=== PATIENT | female | born 1990 | race Caucasian/White ===

== ENCOUNTER 2020-05-07 17:23 | Emergency (ER) | payer OTHER, SELFPAY ==
[2020-05-07 18:20] VITALS: BP 115/88; PULSE 80; RESP 20; TEMP 36.1; O2SAT 100
[2020-05-07 18:38] LABS: Basophils Absolute Auto 0.1 K/mm3 (0.0-0.1); Basophils Percent Auto 0.7 % (0.2-1.2); Eosinophils Absolute Auto 0.2 K/mm3 (0-0.3); Eosinophils Percent Auto 1.5 % (0-4.4); Hemoglobin 13.9 g/dL (12.0-15.0); Immature Granulocyte Absolute 0.17 K/mm3 (0.00-0.031); Immature Granulocyte Percent A 1.3 % (0-0.5); Lymphocytes Absolute Auto 2.36 K/mm3 (0.9-3.2); Lymphocytes Percent Auto 17.4 % (18.3-44.2); Mean Corpuscular HGB Conc 33.1 g/dl (32-36); Mean Corpuscular Hemoglobin 29.6 pg (26-34); Mean Corpuscular Volume 89.6 fl (80-100); Mean Platelet Volume 9.3 fl (7.4-10.4); Monocytes Absolute Auto 0.7 K/mm3 (0.1-0.6); Monocytes Percent Auto 5.3 % (2.6-8.5); Neutrophils Percent Auto 73.8 % (45.5-73.1); Platelet Count Result 467 k/mm3 (150-375); Red Blood Count 4.69 M/mm3 (4.2-5.4); Red Cell Distribution Width 13.1 % (11.5-14.5); White Blood Count 13.6 K/mm3 (4.5-10.0)
[2020-05-07 18:51] LABS: Alanine Aminotransferase 14 U/L (4-35); Albumin Level 4.6 g/dL (3.5-5.1); Alkaline Phosphatase 30 U/L (38-126); Anion Gap 8 mmol/L (8-16); Aspartate Amino Transferase 22 U/L (14-36); Bilirubin,Total 0.6 mg/dL (0.2-1.3); Blood Urea Nitrogen 10 mg/dL (7-17); Calcium 9.2 mg/dL (8.4-10.2); Carbon Dioxide 27 mmol/L (22-30); Chloride 104 mmol/L (98-107); Estimated CRCL calculation 136 ml/min; Estimated Glomerular Filt Rate > 60; Glucose 94 mg/dL (65-105); Lipase 127 U/L (23-300); Potassium 3.8 mmol/L (3.4-5.0); Sodium 139 mmol/L (137-145)
[2020-05-07 18:51] LABS: Add Urine Microscopic? YES; Appearance Urine Clear (Clear); Bilirubin Urine Negative (Negative); Blood Urine 3+ (Negative); Color Urine Yellow (Yellow); Glucose Urine UA Negative (Negative); Ketones Urine Trace mg/dL (Negative); Leukocyte Esterase Ur Trace LEU/UL (Negative); Mucus Urine Heavy /lpf; Nitrate Urine Negative (Negative); Protein Urine 1+ mg/dL (Negative); Specific Grav Ur 1.038 (1.001-1.035); Squamous Epithelial Cell Urine Many /hpf (Few)
== END 2020-05-07 18:40 | disposition left against medical advice (07) ==
LOC: ANHED 20:43
PROVIDERS: Emergency Provider Emergency Medicine; PCP Emergency Medicine
DX: R11.2 Nausea with vomiting, unspecified (principal)
CPT/HCPCS: 36415; 80053; 81001; 81025; 83690; 85025; 87086; 87088; 99199

== ENCOUNTER 2020-05-24 09:39 | Outpatient (CLI) | payer OTHER, SELFPAY ==
--- NOTE | ~2020-05-24 | NM_ITS ---
EXAM: NM gastric emptying study DATE: 05/24/2020 14:48 INDICATION: Abdominal pain. TECHNIQUE: A gastric emptying study was performed using the methodology of Cuauhtemoc GIL, et al. J Nucl Med 2007; 48:568-572. The patient was given a meal consisting of 2 scrambled eggs labeled with 0.990 mCi Tc-99m sulfur colloid, 2 slices of toast, two packages of jam, and approximately 120 mL of water . Simultaneous anterior and posterior 1-min images of the abdomen were obtained with the patient supi ne at multiple time points over a total period of 4 hours. The geometric mean of anterior and posteri or views was determined, and the percentage retention was calculated for each time point. COMPARISON: None. FINDINGS: Gastric retention of the radiotracer-labeled meal was 80%, 54%, and 30% at the 1-hour, 2-h our, and 4-hour time points, respectively. With this technique, apparent rapid gastric emptying is vogel ggested by <30% gastric retention at 1 hour. Delayed gastric emptying is defined by gastric retention of >90% at 1 hour, >60% retention at 2 hours, or >10% retention at 4 hours. IMPRESSION: 1. Delayed gastric emptying. Reviewed, dictated and finalized at location A.
== END 2020-05-24 09:40 | disposition home or self-care (01) ==
PROVIDERS: PCP Emergency Medicine; Visit Provider Internal Medicine Gastroenterology
DX: R10.84 Generalized abdominal pain (principal); R11.2 Nausea with vomiting, unspecified; K30 Functional dyspepsia
CPT/HCPCS: 78264; A9541

== ENCOUNTER 2020-11-26 12:53 | Emergency (ER) | payer OTHER, SELFPAY ==
--- NOTE | ~2020-11-26 | CT_ITS ---
EXAMINATION: CT abdomen pelvis w con EXAM DATE: 11/26/2020 14:34 INDICATION: Abdominal pain, vomiting. TECHNIQUE: Spiral CT of the abdomen and pelvis was performed following intravenous injection of 100 m L Omnipaque 350. Axial, coronal and sagittal images of the abdomen and pelvis were reviewed. The do se-length product (DLP) for this examination was 1626.30 mGy-cm. The exposure was tailored according to patient size (auto mA exposure control), and iterative reconstruction (ASIR) was used as addition al dose reduction technique. There is no prior study for comparison. FINDINGS: Study is limited due to patient motion. The liver, spleen, adrenal glands and pancreas ar e unremarkable. There are cholecystectomy clips. Portal and splenic veins are patent. Kidneys enha nce symmetrically. There is no hydronephrosis. The uterus is unremarkable. The bladder is unrema rkable. There is no retroperitoneal or pelvic lymphadenopathy. The appendix is normal. The stomach and small bowel are unremarkable. Colon is collapsed, with mild ly prominent wall, possible colitis. No free intraperitoneal gas. The heart is normal in size. T here are no pericardial or pleural effusions. The lung bases are unremarkable. There are no osteobl astic or osteolytic lesions identified. IMPRESSION: Collapsed colon with mildly prominent wall, possible colitis. Reviewed, dictated and finalized at location B.
[2020-11-26 13:01] VITALS: BP 131/77; PULSE 72; RESP 16; TEMP 36.6; O2SAT 100
[2020-11-26 13:10] VITALS: BP 131/77
--- NOTE | 2020-11-26 13:22 | ECG_ITS ---
Measurements Intervals Newman Rate: 63 P: 38 IL: 156 QRS: 60 QRSD: 96 T: 26 QT: 447 QTc: 459 Interpretive Statements SINUS RHYTHM WITH MARKED SINUS ARRHYTHMIA BASELINE ARTIFACT- I, II, AVR, AVF, V1 BORDERLINE ECG Electronically Signed On 11-26-2020 14:00:20 CDT by Ben Mascorro D.O.
--- NOTE | 2020-11-26 13:26 | ED.ABDPAIN ---
HPI - Abdominal Pain General Chief Complaint: Abdominal Pain Stated Complaint: abd pain/vomiting Time Seen by Provider: 11/26/20 12:56 Source: patient Mode of arrival: ambulatory Limitations: no limitations History of Present Illness HPI narrative: This is a 30 year old female who presents for evaluation of nausea, vomiting and diarrhea. She reports history of Chrohn's disease. She reports daily nausea and vomiting. She reports approximately 3-4 episodes of nonbloody diarrhea daily. She also reports diffuse abdominal pain and cramping. She takes Zofran, Phenergan and Bentyl for her chronic GI issues. She also states she stopped taking her amitriptyline 1 month ago because she did not think it was helping. She denies fever or chills. She was just at [facility] a few hours ago but she left before disposition. She states she was given IV Zofran there but she is still having nausea and vomiting. She took Phenergan last night. She is scheduled for a colonoscopy tomorrow by Dr. Torres. She has not started taking the prep. She admits to smoking marijuana 8-9 times a day. Related Data Home Medications Medication Instructions Recorded Confirmed citalopram mg 11/26/20 11/26/20 dicyclomine mg 11/26/20 ondansetron 11/26/20 promethazine 11/26/20 Allergies Allergy/AdvReac Type Severity Reaction Status Date / Time morphine AdvReac Intermediate really Verified 11/26/20 13:23 bad migraines Review of Systems Review of Systems: All systems reviewed & are unremarkable except as noted in HPI and below Constitutional: Constitutional: Denies chills and Denies fever(s) Gastrointestinal: Gastrointestinal: Reports abdominal pain, Reports diarrhea, Reports nausea and Reports vomiting PMFSH Past Medical History Medical History (Updated 11/26/20 @ 17:00 by Lea Hughes MD) Crohn's disease Gastritis Surgical History Surgical History (Updated 11/26/20 @ 16:56 by Lea Hughes MD) H/O colonoscopy Social History Social History (Updated 11/26/20 @ 21:27 by Lea Hughes MD) Substance use: current Substance use type: marijuana Other substance usage details: 8-9 times daily Exam Const: General: no acute distress and alert Orientation/consciousness: patient oriented x3 Chest: Chest palpation & inspection: normal inspection of the chest Resp: Effort & Inspection: normal respiratory effort and no retractions Auscultation: clear to auscultation bilaterally Cardio: Rate: regular rate Rhythm: regular rhythm Heart sounds: no murmurs GI: GI Palp: Yes Soft to palpation, Yes Tenderness to palpation present (GI) (epigastric) and No Guarding due to palpation present (GI) Auscultation: normal bowel sounds Skin: General skin exam: normal color Rashes: no rashes Neuro: General: patient oriented x3, moves all extremities and CN's II-XI intact bilaterally Psych: Affect: normal affect and Anxious affect present Course Reevaluation(s) Reevaluation #1: Patient has not had any nausea or vomiting. I discussed Ct and plan to discharge on antibiotics. She will follow up with GI tomorrow and they will reschedule colonoscopy. Date: 11/26/20 Time: 16:57 Consultations Consultation #1: I spoke with Dr. Torres about patient's labs and CT. He states patient will be seen in clinic tomorrow and they will reschedule colonoscopy. He agrees with discharge with antibiotics. Date: 11/26/20 Time: 16:40 Vital Signs Vital signs: Vital Signs Temperature 98 F 11/26/20 13:01 Pulse Rate 72 11/26/20 13:01 Respiratory Rate 16 11/26/20 13:01 Blood Pressure 131/77 11/26/20 13:01 Pulse Oximetry 100 11/26/20 13:01 Temperature 98 F 11/26/20 13:01 Pulse Rate 72 11/26/20 17:16 Respiratory Rate 18 11/26/20 17:16 Blood Pressure 118/75 11/26/20 17:16 Pulse Oximetry 100 11/26/20 17:16 MDM - Abdominal Pain Medical Records Attestation: I reviewed the patient
[2020-11-26] MEDS: LORazepam INJ (*CRX) 2 MG/ML VIAL 0.5 MG IV PUSH (13:44)
[2020-11-26] MEDS: LACTATED RINGERS 1,000 ML 999 ML IV CONT (13:45)
[2020-11-26] MEDS: HALOPERIDOL LACTATE 5 MG/ML VIAL IV PUSH (13:50)
[2020-11-26 14:02] LABS: Basophils Absolute Auto 0.1 K/mm3 (0.0-0.1); Basophils Percent Auto 0.4 % (0.2-1.2); Eosinophils Percent Auto 0.1 % (0-4.4); Hemoglobin 12.9 g/dL (12.0-15.0); Immature Granulocyte Absolute 0.25 K/mm3 (0.00-0.031); Immature Granulocyte Percent A 1.3 % (0-0.5); Lymphocytes Absolute Auto 1.61 K/mm3 (0.9-3.2); Lymphocytes Percent Auto 8.1 % (18.3-44.2); Mean Corpuscular HGB Conc 32.3 g/dl (32-36); Mean Corpuscular Hemoglobin 29.2 pg (26-34); Mean Corpuscular Volume 90.5 fl (80-100); Mean Platelet Volume 9.8 fl (7.4-10.4); Monocytes Absolute Auto 0.6 K/mm3 (0.1-0.6); Monocytes Percent Auto 2.9 % (2.6-8.5); Neutrophils Absolute Auto 17.4 K/mm3 (1.3-6.7); Neutrophils Percent Auto 87.2 % (45.5-73.1); Platelet Count Result 466 k/mm3 (150-375); Red Blood Count 4.42 M/mm3 (4.2-5.4); Red Cell Distribution Width 14.4 % (11.5-14.5); White Blood Count 19.9 K/mm3 (4.5-10.0)
[2020-11-26 14:12] LABS: Alanine Aminotransferase 15 U/L (4-35); Albumin Level 4.4 g/dL (3.5-5.1); Alkaline Phosphatase 31 U/L (38-126); Anion Gap 9 mmol/L (8-16); Aspartate Amino Transferase 27 U/L (14-36); Bilirubin,Total 0.2 mg/dL (0.2-1.3); Blood Urea Nitrogen 9 mg/dL (7-17); Calcium 9.2 mg/dL (8.4-10.2); Carbon Dioxide 27 mmol/L (22-30); Chloride 105 mmol/L (98-107); Estimated CRCL calculation 141 ml/min; Estimated Glomerular Filt Rate > 60; Glucose 154 mg/dL (65-105); Lipase 81 U/L (23-300); Potassium 3.5 mmol/L (3.4-5.0); Sodium 141 mmol/L (137-145)
[2020-11-26 14:13] LABS: Add Urine Microscopic? YES; Appearance Urine Cloudy (Clear); Bacteria Urine Trace /hpf; Bilirubin Urine Negative (Negative); Blood Urine Negative (Negative); Color Urine Yellow (Yellow); Glucose Urine UA Negative (Negative); Ketones Urine 1+ mg/dL (Negative); Leukocyte Esterase Ur Negative LEU/UL (Negative); Mucus Urine Heavy /lpf; Nitrate Urine Negative (Negative); Protein Urine 2+ mg/dL (Negative); RBC Urine 0-2 /hpf (0-2); Specific Grav Ur 1.029 (1.001-1.035); Squamous Epithelial Cell Urine Moderate /hpf (Few); Urobilinogen Urine Negative mg/dL (<2.0); WBC Urine 0-3 /hpf
[2020-11-26 14:43] VITALS: BP 136/75; O2SAT 99
[2020-11-26 15:02] VITALS: BP 122/73; PULSE 72
[2020-11-26] MEDS: CIPROFLOXACIN 500 MG TAB PO (16:49)
[2020-11-26] MEDS: metroNIDAZOLE 250 MG TABLET 500 MG PO (16:49)
[2020-11-26 17:16] VITALS: BP 118/75; PULSE 72; RESP 18; O2SAT 100
== END 2020-11-26 17:17 | disposition home or self-care (01) ==
PROVIDERS: Emergency Provider General Practice; PCP Emergency Medicine
DX: K52.9 Noninfective gastroenteritis and colitis, unspecified (principal); R11.2 Nausea with vomiting, unspecified; K50.90 Crohn's disease, unspecified, without complications
CPT/HCPCS: 36415; 74177; 80053; 81001; 81025; 83690; 85025; 93005; 96361; 96374; 96375; 99284; A9270; J1630; J2060; J7120; Q9967

== ENCOUNTER 2020-11-27 22:33 | Emergency (ER) | payer OTHER, SELFPAY ==
[2020-11-27 22:35] VITALS: BP 149/86; PULSE 80; RESP 18; TEMP 36.4; O2SAT 99
[2020-11-27] MEDS: SODIUM CHLORIDE 0.9% IV 1,000 ML 999 ML IV CONT (23:17)
[2020-11-27] MEDS: PROCHLORPERAZINE EDISYLATE 10 MG/2 ML VIAL IV PUSH (23:17)
[2020-11-27] MEDS: diphenhydrAMINE HCl INJ 50 MG/ML VIAL IV PUSH (23:18)
[2020-11-27 23:19] LABS: Basophils Absolute Auto 0.1 K/mm3 (0.0-0.1); Basophils Percent Auto 0.5 % (0.2-1.2); Eosinophils Percent Auto 0.2 % (0-4.4); Hematocrit 39.1 % (37.0-47.0); Immature Granulocyte Absolute 0.17 K/mm3 (0.00-0.031); Lymphocytes Absolute Auto 2.19 K/mm3 (0.9-3.2); Lymphocytes Percent Auto 13.5 % (18.3-44.2); Mean Corpuscular HGB Conc 33.2 g/dl (32-36); Mean Corpuscular Hemoglobin 29.7 pg (26-34); Mean Corpuscular Volume 89.3 fl (80-100); Mean Platelet Volume 9.5 fl (7.4-10.4); Monocytes Absolute Auto 0.7 K/mm3 (0.1-0.6); Monocytes Percent Auto 4.2 % (2.6-8.5); Neutrophils Absolute Auto 13.1 K/mm3 (1.3-6.7); Neutrophils Percent Auto 80.6 % (45.5-73.1); Platelet Count Result 408 k/mm3 (150-375); Red Blood Count 4.38 M/mm3 (4.2-5.4); Red Cell Distribution Width 14.5 % (11.5-14.5); White Blood Count 16.2 K/mm3 (4.5-10.0)
[2020-11-27 23:29] LABS: Potassium 3.2 mmol/L (3.4-5.0)
[2020-11-27 23:30] LABS: Lactic Acid Reflex 1.5 mmol/L (0.7-2.1)
[2020-11-27 23:32] LABS: Alanine Aminotransferase 16 U/L (4-35); Albumin Level 4.4 g/dL (3.5-5.1); Alkaline Phosphatase 27 U/L (38-126); Anion Gap 9 mmol/L (8-16); Aspartate Amino Transferase 32 U/L (14-36); Bilirubin,Total 0.4 mg/dL (0.2-1.3); Blood Urea Nitrogen 10 mg/dL (7-17); Calcium 9.1 mg/dL (8.4-10.2); Carbon Dioxide 26 mmol/L (22-30); Chloride 103 mmol/L (98-107); Estimated CRCL calculation 128 ml/min; Estimated Glomerular Filt Rate > 60; Glucose 114 mg/dL (65-105); Lipase 96 U/L (23-300); Sodium 138 mmol/L (137-145)
[2020-11-28] MEDS: DICYCLOMINE HCL INJ 20 MG/2 ML VIAL IM (00:08)
[2020-11-28] MEDS: HALOPERIDOL LACTATE 5 MG/ML VIAL IV PUSH (00:09)
--- NOTE | 2020-11-28 00:56 | ED.GENADULT ---
HPI - General Adult General Chief complaint: Abdominal Pain Stated complaint: multiple complaints Time Seen by Provider: 11/27/20 22:44 History of Present Illness HPI narrative: Patient is a 30-year-old female who presents the emergency department with chief complaint of abdominal pain nausea and vomiting. Patient was seen in the emergency department yesterday and was seen in another emergency department as well. The patient reports she was diagnosed with colitis started on antibiotics and antiemetics. The patient states she is continued to have nausea and vomiting and reports that she still has discomfort in her abdomen. Related Data Home Medications Medication Instructions Recorded Confirmed citalopram mg 11/26/20 11/26/20 dicyclomine mg 11/26/20 ondansetron 11/26/20 promethazine 11/26/20 Allergies Allergy/AdvReac Type Severity Reaction Status Date / Time morphine AdvReac Intermediate really Verified 11/26/20 13:23 bad migraines Review of Systems Review of Systems: Narrative: A 10 system review of systems was completed on the patient and is negative except for what is stated in the HPI. Nursing and ancillary documentation was reviewed. [facility] Past Medical History Medical History Crohn's disease Gastritis Surgical History Surgical History H/O colonoscopy Social History Social History Substance use: current Substance use type: marijuana Other substance usage details: 8-9 times daily Exam Narrative: Exam Narrative: GENERAL: Well-appearing, well-nourished, and in no acute distress. HEAD: Normocephalic, atraumatic. EYES: PERRLA and EOMI. ENT: Nares clear, no rhinorrhea or epistaxis. Mucous membranes moist. NECK: Supple. CHEST: Clear to auscultation. No respiratory distress. HEART: Regular rate and rhythm. No murmur heard. Normal peripheral pulses. ABDOMEN: Soft, diffuse tenderness to palpation, nondistended, normal active bowel sounds. EXTREMITIES: Normal range of motion. No edema. SKIN: Warm, dry, no rash. NEURO: No focal deficits. Alert and oriented x3. PSYCH: Normal mood and affect. Course Course Emergency Course: Patient shows an improvement in her white blood cell count the patient has been able to tolerate p.o. intake at this time the patient will be flipped to as needed Phenergan and the patient was instructed to follow-up with her circulation librarian as soon as possible. Vital Signs Vital signs: Vital Signs Temperature 36.4 C 11/27/20 22:35 Pulse Rate 80 11/27/20 22:35 Respiratory Rate 18 11/27/20 22:35 Blood Pressure 149/86 H 11/27/20 22:35 Pulse Oximetry 99 11/27/20 22:35 Temperature 36.4 C 11/27/20 22:35 Pulse Rate 80 11/27/20 22:35 Respiratory Rate 18 11/27/20 22:35 Blood Pressure 149/86 H 11/27/20 22:35 Pulse Oximetry 99 11/27/20 22:35 Medical Decision Making Vital Signs Vital Signs: Vital Signs Temperature 36.4 C 11/27/20 22:35 Pulse Rate 80 11/27/20 22:35 Respiratory Rate 18 11/27/20 22:35 Blood Pressure 149/86 H 11/27/20 22:35 Pulse Oximetry 99 11/27/20 22:35 Temperature 36.4 C 11/27/20 22:35 Pulse Rate 80 11/27/20 22:35 Respiratory Rate 18 11/27/20 22:35 Blood Pressure 149/86 H 11/27/20 22:35 Pulse Oximetry 99 11/27/20 22:35 Lab Data Result diagrams: 11/27/20 23:06 11/27/20 23:06 Labs: Lab Results 11/27/20 11/27/20 11/27/20 Range/Units 23:05 23:06 23:06 WBC 16.2 H (4.5-10.0) K/mm3 RBC 4.38 (4.2-5.4) M/mm3 Hgb 13.0 (12.0-15.0) g/dL Hct 39.1 (37.0-47.0) % MCV 89.3 (80-100) fl MCH 29.7 (26-34) pg MCHC 33.2 (32-36) g/dl RDW 14.5 (11.5-14.5) % Plt Count 408 H (150-375) k/mm3 MPV 9.5 (7.4-10.4) fl [facility]
[2020-11-28 01:00] VITALS: BP 167/88; PULSE 78; RESP 18; O2SAT 97
[2020-11-28 03:00] VITALS: BP 139/74; PULSE 75; RESP 18; O2SAT 98
== END 2020-11-28 03:00 | disposition home or self-care (01) ==
PROVIDERS: Emergency Provider Emergency Medicine; PCP Emergency Medicine
DX: K52.9 Noninfective gastroenteritis and colitis, unspecified (principal)
CPT/HCPCS: 36415; 80053; 81025; 83605; 83690; 85025; 96361; 96372; 96374; 96375; 99284; J0500; J0780; J1200; J1630; J7030

== ENCOUNTER 2021-01-14 16:14 | Outpatient (CLI) | payer OTHER, SELFPAY ==
[2021-01-14 16:33] LABS: Hematocrit 36.8 % (37.0-47.0); Hemoglobin 12.3 g/dL (12.0-15.0); Mean Corpuscular HGB Conc 33.4 g/dl (32-36); Mean Corpuscular Hemoglobin 29.2 pg (26-34); Mean Corpuscular Volume 87.4 fl (80-100); Platelet Count Result 407 k/mm3 (150-375); Red Blood Count 4.21 M/mm3 (4.2-5.4); Red Cell Distribution Width 14.3 % (11.5-14.5); White Blood Count 14.1 K/mm3 (4.5-10.0)
[2021-01-14 16:44] LABS: Cholesterol 195 mg/dL (0-200); HDL Direct 43 mg/dL; Triglycerides 170 mg/dL (<150)
[2021-01-14 16:54] LABS: Rheumatoid Factor < 8.6 IU/ML (<12)
[2021-01-14 16:55] LABS: LDL Cholesterol Direct 105 mg/dL
[2021-01-14 16:58] LABS: Erythrocyte Sedimentation Rate 21 mm/hr (0-20)
[2021-01-14 17:16] LABS: Thyroid Stimulating Hormone 0.917 uIU/mL (0.465-4.680)
[2021-01-14 17:48] LABS: Free T4 Free Thyroxine 0.84 ng/mL (0.78-2.19)
== END 2021-01-14 16:15 | disposition home or self-care (01) ==
PROVIDERS: PCP Emergency Medicine; Visit Provider Emergency Medicine
DX: F41.9 Anxiety disorder, unspecified (principal); F32.9 Major depressive disorder, single episode, unspecified; K21.00 Gastro-esophageal reflux disease with esophagitis, without bleeding; D72.829 Elevated white blood cell count, unspecified; K50.90 Crohn's disease, unspecified, without complications
CPT/HCPCS: 36415; 80061; 84439; 84443; 85027; 85652; 86038; 86430

== ENCOUNTER 2021-02-05 18:09 | Emergency (ER) | payer OTHER, SELFPAY ==
[2021-02-05 18:18] VITALS: BP 119/84; PULSE 100; RESP 16; TEMP 37.2; O2SAT 99
--- NOTE | 2021-02-05 18:18 | ED.GENADULT ---
HPI - General Adult General Chief complaint: Upper Respiratory Infection Stated complaint: runny nose/body aches Time Seen by Provider: 02/05/21 18:19 Source: patient and RN notes reviewed Mode of arrival: ambulatory Limitations: no limitations History of Present Illness HPI narrative: 30-year-old female presents with complaints of upper respiratory infection, sneezing, some facial congestion, and facial pressure for 1 day. [place] reports increasing symptoms throughout the night and day of body aches, sore throat, and LT otalgia. Current on Amoxicillin 875mg (started on 01/31/2021 for dental problem) and Ibuprofen without relief. No facial swelling.? Coughing without chest congestion. ?Nasal congestion and rhinorrhea. Sore throat. Pain is bilateral. Hurts to swallow. No high fevers, drooling, neck or throat swelling. No voice change. No nausea, vomiting, or abdominal pain. Tolerating liquids well. Denies chills, dyspnea, difficulty swallowing, jaw pain, dental pain, foreign body sensation, and rash. No chest pain or shortness of breath. LMP 01/23/2021. Remains active. The patient reports she has not been diagnosed with COVID-19. The patient reports she is not waiting for the results of a COVID-19 lab test. The patient reports she does not have weakness, fatigue, or myalgia. The patient reports she does not have any loss of taste and diarrhea. Denies recent traveling. Denies concerns for COVID-19 or exposures. At this time, the patient is not suspected of having COVID-19. Some parts of this dictation were generated by voice recognition software and may contain typographical and/or grammatical inaccuracies. Related Data Home Medications Medication Instructions Recorded Confirmed dicyclomine 10 mg PO QID PRN 11/26/20 02/05/21 amitriptyline 10 mg PO DAILY 02/05/21 02/05/21 amoxicillin 875 mg PO Q12H 02/05/21 02/05/21 omeprazole 40 mg PO DAILY 02/05/21 02/05/21 Allergies Allergy/AdvReac Type Severity Reaction Status Date / Time morphine AdvReac Intermediate really Verified 02/05/21 18:27 bad migraines Review of Systems Review of Systems: Narrative: CONSTITUTIONAL: Denies fever, chills, sweats. EYES: Denies visual changes, redness, discharge. ENT: Complains of rhinorrhea, congestion, LT otalgia, facial congestion and pressure, sore throat. CARDIOVASCULAR: Denies chest pain, palpitations, edema. RESPIRATORY: Denies dyspnea, wheezing. Complaints of dry cough. GASTROINTESTINAL: Denies abdominal pain, nausea, vomiting, diarrhea. SKIN: Denies rash or itching. MUSCULOSKELETAL: Denies acute back pain, joint pain, or myalgia. NEUROLOGIC: Denies numbness or focal weakness. PSYCHIATRIC: Denies anxiety or depression. All other systems reviewed & are unremarkable except as noted in HPI and below. [facility] Past Medical History Medical History Crohn's disease Gastritis Surgical History Surgical History H/O colonoscopy Family History Family History (Updated 02/05/21 @ 18:55 by ROSAMARIA Irwin) Father , Motorcycle accident Unknown family medical history Mother COPD (chronic obstructive pulmonary disease) Smoker Social History Social History (Updated 02/10/21 @ 07:57 by ROSAMARIA Irwin) Smoking status: Former smoker Tobacco type: cigarettes Second hand tobacco smoke exposure: No Alcohol intake: former Substance use: current Substance use type: marijuana Other substance usage details: 8-9 times daily Living arrangements: with family Occupation/Education: unemployed Gender identity (if verbalized by the patient): Female Sexual Orientation (if Verbalized by the Patient): Straight or Heterosexual Comments At time of signature, agree with the nurse past medical, surgical, social, and family history. There is no relevant family history pertinen
[2021-02-05 18:27] VITALS: BP 119/84; PULSE 100; RESP 16; TEMP 37.2; O2SAT 99
[2021-02-06 16:29] LABS: SARS-CoV-2 RNA PCR Negative
== END 2021-02-05 18:54 | disposition home or self-care (01) ==
PROVIDERS: Emergency Provider Nurse Practitioner Family; PCP Emergency Medicine
DX: J01.90 Acute sinusitis, unspecified (principal); H92.02 Otalgia, left ear; Z20.822 Contact with and (suspected) exposure to COVID-19; Z87.891 Personal history of nicotine dependence; K50.90 Crohn's disease, unspecified, without complications
CPT/HCPCS: 99213; C9803; G0463; U0003; U0005

== ENCOUNTER 2021-04-14 11:14 | Emergency (ER) | payer OTHER, SELFPAY ==
[2021-04-14 11:17] VITALS: BP 125/80; PULSE 84; RESP 16; TEMP 36.6; O2SAT 96
--- NOTE | 2021-04-14 11:35 | ED.GENADULT ---
HPI - General Adult General Chief complaint: Nausea/Vomiting/Diarrhea Stated complaint: Rash,Vomiting Time Seen by Provider: 04/14/21 11:33 History of Present Illness HPI narrative: Patient is a 30-year-old female who comes to the ED today complaining of abdominal pain and nausea and vomiting. The symptoms started 3 days ago. Has been unable to keep anything down. The abdominal pain is generalized. She denies any urinary symptoms, fevers, any chance of . Has a history of Crohn's disease, admits to previous history of similar symptoms numerous times in the past. Does note that she has significant relief of her symptoms with hot showers. She does admit to marijuana use. She is followed by gastroenterology Dr. Torres who has prescribed her amitriptyline and Prilosec for her symptoms. Denies any alcohol use or any other illicit drug use. Says that she is going to go see a new fourdrinier wire weaver on 04/19/2021 at [place]. Also notes that she has a pruritic rash on her extremities. Unknown cause. No one else in her house has this rash. Notes that she just got a pet rabbit last week. And she did start using a new detergent but thinks that she has used it in the past. Denies any upper respiratory symptoms or shortness of breath. Related Data Home Medications Medication Instructions Recorded Confirmed dicyclomine 10 mg PO QID PRN 11/26/20 02/05/21 amitriptyline 10 mg PO DAILY 02/05/21 02/05/21 amoxicillin 875 mg PO Q12H 02/05/21 02/05/21 omeprazole 40 mg PO DAILY 02/05/21 02/05/21 Allergies Allergy/AdvReac Type Severity Reaction Status Date / Time morphine AdvReac Intermediate really Verified 04/14/21 11:59 bad migraines Review of Systems Constitutional: Constitutional: Reports as per HPI, Denies fever(s), Denies night sweats and Denies weakness Cardiovascular: Cardiovascular: Denies chest pain, Denies edema, Denies leg edema, Denies dyspnea and Denies orthopnea Respiratory: Respiratory: Denies cough and Denies dyspnea Gastrointestinal: Gastrointestinal: Reports abdominal pain, Denies constipation, Denies diarrhea, Reports nausea and Reports vomiting Musculoskeletal: Musculoskeletal: Denies abnormal gait, Denies back pain, Denies numbness and Denies tingling Neurologic: Denies Abnormal speech present, Denies abnormal gait, Denies numbness, Denies tingling and Denies weakness Psychiatric: Psychiatric: Denies homicidal ideation and Denies suicidal ideation [facility] Past Medical History Medical History Crohn's disease Gastritis Surgical History Surgical History H/O colonoscopy Family History Family History (Updated 02/05/21 @ 18:55 by ROSAMARIA Irwin) Father , Motorcycle accident Unknown family medical history Mother COPD (chronic obstructive pulmonary disease) Smoker Social History Social History (Updated 02/10/21 @ 07:57 by ROSAMARIA Irwin) Smoking status: Former smoker Tobacco type: cigarettes Second hand tobacco smoke exposure: No Alcohol intake: former Substance use: current Substance use type: marijuana Other substance usage details: 8-9 times daily Gender identity (if verbalized by the patient): Female Sexual Orientation (if Verbalized by the Patient): Straight or Heterosexual Exam Const: General: cooperative, healthy appearing, comfortable, no acute distress, well developed, alert, awake and Physically active Orientation/consciousness: patient oriented x3 HENMT: Head: normal to inspection, normocephalic and atraumatic Ears: external ears normal General nose exam: Normal external nose present Eyes: Pupils: Equal, round and reactive pupils present EOM: EOMs intact bilaterally Neck: Neck: normal visual inspection Chest: Chest palpation & inspection: normal inspection of the chest and no tenderness Resp: Effo
[2021-04-14 12:28] LABS: Basophils Absolute Auto 0.1 K/mm3 (0.0-0.1); Basophils Percent Auto 0.4 % (0.2-1.2); Eosinophils Absolute Auto 0.2 K/mm3 (0-0.3); Eosinophils Percent Auto 1.5 % (0-4.4); Hemoglobin 13.1 g/dL (12.0-15.0); Immature Granulocyte Absolute 0.07 K/mm3 (0.00-0.031); Immature Granulocyte Percent A 0.6 % (0-0.5); Lymphocytes Absolute Auto 2.17 K/mm3 (0.9-3.2); Lymphocytes Percent Auto 17.7 % (18.3-44.2); Mean Corpuscular HGB Conc 33.6 g/dl (32-36); Mean Corpuscular Hemoglobin 30.6 pg (26-34); Mean Corpuscular Volume 91.1 fl (80-100); Mean Platelet Volume 9.5 fl (7.4-10.4); Monocytes Absolute Auto 0.6 K/mm3 (0.1-0.6); Monocytes Percent Auto 4.6 % (2.6-8.5); Neutrophils Absolute Auto 9.2 K/mm3 (1.3-6.7); Neutrophils Percent Auto 75.2 % (45.5-73.1); Platelet Count Result 407 k/mm3 (150-375); Red Blood Count 4.28 M/mm3 (4.2-5.4); Red Cell Distribution Width 13.8 % (11.5-14.5); White Blood Count 12.3 K/mm3 (4.5-10.0)
[2021-04-14] MEDS: ONDANSETRON INJ 4 MG/2 ML VIAL IV PUSH (12:35)
[2021-04-14] MEDS: SODIUM CHLORIDE 0.9% IV 1,000 ML 999 ML IV CONT (12:35)
[2021-04-14 12:46] LABS: Alanine Aminotransferase 14 U/L (4-35); Alkaline Phosphatase 28 U/L (38-126); Anion Gap 8 mmol/L (8-16); Aspartate Amino Transferase 22 U/L (14-36); Bilirubin,Total 0.4 mg/dL (0.2-1.3); Blood Urea Nitrogen 5 mg/dL (7-17); Calcium 8.6 mg/dL (8.4-10.2); Carbon Dioxide 27 mmol/L (22-30); Chloride 103 mmol/L (98-107); Estimated CRCL calculation 133 ml/min; Estimated Glomerular Filt Rate > 60; Glucose 96 mg/dL (65-110); Lipase 97 U/L (23-300); Potassium 3.9 mmol/L (3.4-5.0); Sodium 138 mmol/L (137-145)
[2021-04-14 12:57] LABS: Add Urine Microscopic? YES; Appearance Urine Clear (Clear); Bilirubin Urine Negative (Negative); Blood Urine 2+ (Negative); Color Urine Yellow (Yellow); Glucose Urine UA Negative (Negative); Ketones Urine Negative (Negative); Leukocyte Esterase Ur Negative LEU/UL (Negative); Mucus Urine Heavy /lpf; Nitrate Urine Negative (Negative); Protein Urine 2+ mg/dL (Negative); RBC Urine >75 /hpf (0-2); Specific Grav Ur 1.023 (1.001-1.035); Squamous Epithelial Cell Urine Many /hpf (Few); WBC Urine 0-3 /hpf
[2021-04-14] MEDS: KETOROLAC 15 MG/ML VIAL (*BKC) IV PUSH (13:54)
[2021-04-14] MEDS: FAMOTIDINE 20 MG/2 ML VIAL IV PUSH (13:54)
[2021-04-14 15:58] VITALS: RESP 16
== END 2021-04-14 15:59 | disposition home or self-care (01) ==
PROVIDERS: Physician Assistant Medical; Emergency Provider Emergency Medicine; PCP Emergency Medicine
DX: R11.2 Nausea with vomiting, unspecified (principal); R10.84 Generalized abdominal pain; L50.9 Urticaria, unspecified; K50.90 Crohn's disease, unspecified, without complications; Z87.891 Personal history of nicotine dependence
CPT/HCPCS: 36415; 80053; 81001; 81025; 83690; 85025; 96361; 96374; 96375; 99284; J1885; J2405; J7030

== ENCOUNTER 2021-06-25 09:09 | Emergency (ER) | payer OTHER, SELFPAY ==
[2021-06-25 09:20] VITALS: BP 115/69; PULSE 73; RESP 16; TEMP 36.4; O2SAT 98
== END 2021-06-25 10:57 | disposition left against medical advice (07) ==
PROVIDERS: Emergency Provider Internal Medicine Hematology & Oncology; PCP Emergency Medicine
DX: Z53.21 Procedure and treatment not carried out due to patient leaving prior to being seen by health care provider (principal)
CPT/HCPCS: 99199

== ENCOUNTER 2021-06-29 15:50 | Emergency (ER) | payer OTHER, SELFPAY ==
[2021-06-29 15:52] VITALS: BP 133/85; PULSE 78; RESP 18; TEMP 36.5; O2SAT 99
--- NOTE | 2021-06-29 16:55 | PC.NURSE ---
Pt seen walking out of department. Did not stop at intake desk.
== END 2021-06-30 03:47 | disposition left against medical advice (07) ==
DX: Z53.21 Procedure and treatment not carried out due to patient leaving prior to being seen by health care provider (principal)
CPT/HCPCS: 99199

== ENCOUNTER 2021-07-28 12:00 | Emergency (ER) | payer OTHER, SELFPAY ==
[2021-07-28 12:10] VITALS: BP 118/83; PULSE 81; RESP 18; TEMP 36.4; O2SAT 100
--- NOTE | 2021-07-28 12:45 | ED.URI ---
HPI - URI/Sore Throat General Chief Complaint: Upper Respiratory Infection Stated Complaint: Body Aches,Fever Time Seen by Provider: 07/28/21 12:45 Source: patient, RN notes reviewed and old records reviewed Mode of arrival: ambulatory Limitations: no limitations History of Present Illness HPI Narrative: 30-year-old female presents to the [facility] with complaints of body aches and fever since Wednesday. Reports severe fatigue along with 100.6 fever. Denies any chest pain or abdominal pain. No nausea vomiting or diarrhea MD elicited complaint: fever Related Data Home Medications Medication Instructions Recorded Confirmed amitriptyline 10 mg PO DAILY 02/05/21 07/28/21 citalopram 40 mg PO DAILY 06/25/21 07/28/21 etonogestrel [Nexplanon] 68 mg SUBDERMAL USEASDIRECTD 06/25/21 07/28/21 Allergies Allergy/AdvReac Type Severity Reaction Status Date / Time morphine AdvReac Intermediate really Verified 07/28/21 12:13 bad migraines Review of Systems Review of Systems: All systems reviewed & are unremarkable except as noted in HPI and below Constitutional: Constitutional: Reports chills and Reports fever(s) Eyes: Eyes: Reports no additional eye complaints ENT: Reports system reviewed and no additional complaints, except as documented Cardiovascular: Cardiovascular: Reports no additional cardiovascular complaints and Denies chest pain Respiratory: Respiratory: Reports no additional respiratory complaints, Denies cough and Denies dyspnea Musculoskeletal: Musculoskeletal: Reports no additional musculoskeletal complaints Integumentary/Breasts: Skin/Breast: Reports system reviewed and no additional complaints, except as docu Neurologic: Reports system reviewed and no additional complaints, except as documented Psychiatric: Psychiatric: Reports no additional psychiatric complaints Allergic/Immunologic: Allergic/Immunologic: Reports no additional allergic/immunologic complaints [facility] Past Medical History Medical History Crohn's disease Gastritis Surgical History Surgical History H/O colonoscopy Family History Family History (Updated 02/05/21 @ 18:55 by ROSAMARIA Irwin) Father , Motorcycle accident Unknown family medical history Mother COPD (chronic obstructive pulmonary disease) Smoker Social History Social History (Updated 02/10/21 @ 07:57 by ABDULLAHI Irwin Smoking status: Former smoker Tobacco type: cigarettes Second hand tobacco smoke exposure: No Alcohol intake: former Substance use: current Substance use type: marijuana Other substance usage details: 8-9 times daily Gender identity (if verbalized by the patient): Female Sexual Orientation (if Verbalized by the Patient): Straight or Heterosexual Exam Const: General: ill appearing acutely (Mild) Nutritional Appearance: well nourished and obese Orientation/consciousness: patient oriented x3 Limitations: no limitations HENMT: Head: normal to inspection Ears: external ears normal, TM's normal bilaterally and EAC's normal Eyes: Pupils: Equal, round and reactive pupils present Neck: Neck: normal visual inspection, no lymphadenopathy and no meningeal signs Chest: Chest palpation & inspection: normal inspection of the chest Resp: Effort & Inspection: normal respiratory effort Auscultation: clear to auscultation bilaterally Cardio: Rate: regular rate Rhythm: regular rhythm GI: GI Palp: Yes Soft to palpation and No Tenderness to palpation present (GI) Back/Spine/Pelvis: Back: no CVA tenderness Skin: General skin exam: normal color Rashes: no rashes Wounds: no wounds Neuro: General: patient oriented x3, moves all extremities, no meningeal signs and no focal motor deficits Speech: normal speech Gait exam (Neuro): Normal gait present Extrem: General: normal to inspection
[2021-07-29 20:10] LABS: SARS-CoV-2 RNA PCR Positive
== END 2021-07-28 13:08 | disposition home or self-care (01) ==
PROVIDERS: Emergency Provider Nurse Practitioner
DX: U07.1 COVID-19 (principal); Z87.891 Personal history of nicotine dependence; K50.90 Crohn's disease, unspecified, without complications
CPT/HCPCS: 87804; 99213; C9803; G0463; U0003; U0005

== ENCOUNTER 2022-02-28 13:49 | Emergency (ER) | payer OTHER, SELFPAY ==
[2022-02-28 13:57] VITALS: BP 130/66; PULSE 72; RESP 16; TEMP 37; O2SAT 99
--- NOTE | 2022-02-28 14:27 | ED.GENADULT ---
HPI - General Adult General Chief complaint: Unspecified Stated complaint: Rx Refill Time Seen by Provider: 02/28/22 14:24 Source: patient Mode of arrival: ambulatory Limitations: no limitations History of Present Illness HPI narrative: Patient presents today Requesting a refill of her Celexa. She has been out for 5 days and states her psychiatrist is out on vacation for another week and will not send her in an emergency refill. She has been taking Celexa for the last approximately 16 years. States she is more emotional since being off of the medication. Denies SI or HI. Related Data Home Medications Medication Instructions Recorded Confirmed amitriptyline 10 mg tablet 10 mg PO DAILY 02/05/21 02/28/22 citalopram 40 mg tablet 40 mg PO DAILY 06/25/21 02/28/22 etonogestrel 68 mg subdermal 68 mg subdermal USEASDIRECTD 06/25/21 02/28/22 implant (Nexplanon) Allergies Allergy/AdvReac Type Severity Reaction Status Date / Time morphine AdvReac Intermediate really Verified 02/28/22 14:01 bad migraines Review of Systems Review of Systems: CONSTITUTIONAL: Denies body aches, fever, chills, or sweats. EYES: Denies visual changes, redness, or discharge. ENT: Denies rhinorrhea, congestion, sore throat, or otalgia. CARDIOVASCULAR: Denies chest pain, palpitations, or edema. RESPIRATORY: Denies cough or dyspnea. GASTROINTESTINAL: Denies abdominal pain, nausea, vomiting, or diarrhea. GENITOURINARY: Denies dysuria or hematuria. SKIN: Denies rash, itching, or wounds. MUSCULOSKELETAL: Denies back pain, joint pain, or myalgia. NEUROLOGIC: Denies headache, numbness, tingling, or weakness. PSYCH: +Emotional. Denies SI or HI PMFSH Past Medical History Medical History Crohn's disease Gastritis Surgical History Surgical History H/O colonoscopy Family History Family History Father , Motorcycle accident Unknown family medical history Mother COPD (chronic obstructive pulmonary disease) Smoker Social History Social History Smoking status: Former smoker Tobacco type: cigarettes Second hand tobacco smoke exposure: No Alcohol intake: former Substance use: current Substance use type: marijuana Other substance usage details: 8-9 times daily Gender identity (if verbalized by the patient): Female Sexual Orientation (if Verbalized by the Patient): Straight or Heterosexual Comments At time of signature, I have reviewed and agree with nursing past medical, surgical, social and family history unless otherwise noted. Please see nursing chart for further information. There is no relevant family history pertinent to the presenting complaint Exam Narrative: GENERAL: Well-appearing, well-nourished, and in no acute distress.Tearful HEAD: Normocephalic, atraumatic. EYES: EOMI. No redness or drainage. Conjunctivae normal. ENT: Mucous membranes pink and moist. NECK: Normal AROM. CHEST: No respiratory distress. EXTREMITIES: Normal range of motion. No edema. SKIN: Warm, dry, no rash. Capillary refill normal. Normal skin turgor. NEURO: No focal deficits. Alert and oriented x3. Gait steady. Course Course Level of Care: Express Care Visit Vital Signs Vital signs: Vital Signs Temperature 98.6 F 02/28/22 13:57 Pulse Rate 72 02/28/22 13:57 Respiratory Rate 16 02/28/22 13:57 Blood Pressure 130/66 02/28/22 13:57 Pulse Oximetry 99 02/28/22 13:57 Oxygen Delivery Room Air 02/28/22 13:57 Temperature 98.6 F 02/28/22 13:57 Pulse Rate 72 02/28/22 13:57 Respiratory Rate 16 02/28/22 13:57 Blood Pressure 130/66 02/28/22 13:57 Pulse Oximetry 99 02/28/22 13:57 Oxygen Delivery Room Air 02/28/22 13:57 Reviewed. Pt h
== END 2022-02-28 14:35 | disposition home or self-care (01) ==
PROVIDERS: Emergency Provider Nurse Practitioner
DX: Z76.0 Encounter for issue of repeat prescription (principal); Z87.891 Personal history of nicotine dependence; K50.90 Crohn's disease, unspecified, without complications
CPT/HCPCS: 99211; G0463

== ENCOUNTER 2022-04-29 19:24 | Emergency (ER) | payer OTHER, SELFPAY ==
[2022-04-29 19:52] VITALS: BP 117/90; PULSE 67; RESP 18; TEMP 36.8; O2SAT 100
--- NOTE | 2022-04-30 00:06 | PC.NURSE ---
pt called for room at [id number] with no answer. called again at [id number] and no answer. [facility]
== END 2022-04-30 00:06 | disposition left against medical advice (07) ==
DX: R10.30 Lower abdominal pain, unspecified (principal)
CPT/HCPCS: 99199

== ENCOUNTER 2022-10-28 12:55 | Emergency (ER) | payer OTHER, SELFPAY ==
--- NOTE | 2022-10-28 13:00 | ED.BACK ---
HPI - Back Pain/Injury General Chief Complaint: Back Pain/Injury Stated Complaint: back pain Time Seen by Provider: 10/28/22 12:58 Source: patient Mode of arrival: ambulatory Limitations: no limitations History of Present Illness HPI Narrative: Carolina is a 32-year-old female patient presenting to the clinic today with complaints of right-sided back pain x1 day. She reports that she told her back at work when she was bending down. States that she is only having pain in her back when she is moving. She denies any radiation of pain down her legs. Denies any saddle anesthesia or loss of bowel or bladder. Denies any difficulty walking. States she has used a heating pad and this helps alleviate some pain. Related Data Home Medications Medication Instructions Recorded Confirmed amitriptyline 10 mg tablet 10 mg PO DAILY 02/05/21 10/28/22 citalopram 40 mg tablet 40 mg PO DAILY 06/25/21 10/28/22 Allergies Allergy/AdvReac Type Severity Reaction Status Date / Time morphine AdvReac Intermediate really Verified 10/28/22 13:06 bad migraines Review of Systems Review of Systems: Pertinent positives per HPI. Patient denies any fever, chills, rash, headache, visual changes, dizziness, cough, runny nose, sore throat, shortness of breath, chest pain, palpitations, nausea, vomiting, diarrhea, constipation, abdominal pain, or any urinary issues. [facility] Past Medical History Medical History Crohn's disease Gastritis Surgical History Surgical History H/O colonoscopy Family History Family History Father , Motorcycle accident Unknown family medical history Mother COPD (chronic obstructive pulmonary disease) Smoker Social History Social History Smoking status: Former smoker Tobacco type: cigarettes Second hand tobacco smoke exposure: No Alcohol intake: former Substance use: current Substance use type: marijuana Other substance usage details: 8-9 times daily Living arrangements: with family Occupation/Education: unemployed Gender identity (if verbalized by the patient): Female Sexual Orientation (if Verbalized by the Patient): Straight or Heterosexual Comments At the time of my signature, I reviewed and agree with the nursing past medical, surgical, social, and family history. There is no relevant family history pertinent to the patient complaint. Exam Narrative: General: Well-developed, well nourished, in no apparent distress Head: Normocephalic, atraumatic. Cardio: Regular rate and rhythm, s1 and s2 normal, no murmur appreciated. Resp: Clear to auscultation bilaterally, no rhonchi, rales, wheezing or rubs. Musculoskeletal: No deformity, tender to palpation over the musculature of the right low back, grossly normal range of motion, bilateral lower muscle strength strong and equal, negative for foot drop, patellar reflexes 2+ bilaterally, peripheral pulse strong, no edema, no cyanosis, normal gait and station Course Course Emergency Course: Portions of this record may have been created with voice recognition software. Level of Care: Express Care Visit Vital Signs Vital signs: Vital Signs Temperature 36.4 C 10/28/22 13:06 Pulse Rate 94 10/28/22 13:06 Respiratory Rate 16 10/28/22 13:06 Blood Pressure 105/65 10/28/22 13:06 Pulse Oximetry 100 10/28/22 13:06 Oxygen Delivery Room Air 10/28/22 13:06 Temperature 36.4 C 10/28/22 13:06 Pulse Rate 94 10/28/22 13:06 Respiratory Rate 16 10/28/22 13:06 Blood Pressure 105/65 10/28/22 13:06 Pulse Oximetry 100 10/28/22 13:06 Oxygen Delivery Room Air 10/28/22 13:06 Vital signs reviewed MDM - Back Pain/Injury MDM Narrative Medical decision mt
[2022-10-28 13:06] VITALS: BP 105/65; PULSE 94; RESP 16; TEMP 36.4; O2SAT 100
== END 2022-10-28 13:26 | disposition home or self-care (01) ==
PROVIDERS: Emergency Provider Nurse Practitioner Family
DX: S39.012A Strain of muscle, fascia and tendon of lower back, initial encounter (principal); X50.9XXA Other and unspecified overexertion or strenuous movements or postures, initial encounter; Y99.0 Civilian activity done for income or pay; K50.90 Crohn's disease, unspecified, without complications
CPT/HCPCS: 99213; G0463

== ENCOUNTER 2023-03-04 09:19 | Emergency (ER) | payer OTHER, SELFPAY ==
--- NOTE | 2023-03-04 09:22 | ED.URI ---
HPI - URI/Sore Throat General Chief Complaint: Upper Respiratory Infection Stated Complaint: throat and ear pain Time Seen by Provider: 03/04/23 09:22 Source: patient Mode of arrival: ambulatory Limitations: no limitations History of Present Illness HPI Narrative: Patient is a 32-year-old female that presents with 2 days of sore throat and ear pain. Patient reports history of strep throat. Denies any congestion or cough. Has been taking ibuprofen with moderate relief. Has not taken anything else for symptoms. Denies any fever, chills, nausea, vomiting, diarrhea. Related Data Home Medications Medication Instructions Recorded Confirmed amitriptyline 10 mg tablet 10 mg PO DAILY 02/05/21 03/04/23 Allergies Allergy/AdvReac Type Severity Reaction Status Date / Time morphine AdvReac Intermediate really Verified 03/04/23 09:37 bad migraines Review of Systems Review of Systems: All systems reviewed & are unremarkable except as noted in HPI and below Constitutional: Constitutional: Denies body ache(s), Denies chills, Denies fatigue, Denies fever(s), Denies headache(s), Denies malaise and Denies weakness Eyes: Eyes: Denies blurry vision, Denies itchy eyes and Denies loss of vision ENT: Reports otalgia, Denies headache(s), Denies nasal congestion, Denies sinus pain and Reports sore throat Cardiovascular: Cardiovascular: Denies chest pain, Denies irregular heart rhythm and Denies dyspnea Respiratory: Respiratory: Denies cough and Denies dyspnea Gastrointestinal: Gastrointestinal: Denies abdominal pain, Denies diarrhea, Denies nausea and Denies vomiting Musculoskeletal: Musculoskeletal: Denies back pain, Denies myalgias and Denies arthralgias Integumentary/Breasts: Skin/Breast: Denies pruritus and Denies rash Neurologic: Denies headache(s), Denies loss of vision and Denies weakness Psychiatric: Psychiatric: Reports no additional psychiatric complaints Endocrine: Endocrine: Denies fatigue Allergic/Immunologic: Allergic/Immunologic: Denies itchy eyes PMFSH Past Medical History Medical History Crohn's disease Gastritis Surgical History Surgical History H/O colonoscopy Family History Family History Father , Motorcycle accident Unknown family medical history Mother COPD (chronic obstructive pulmonary disease) Smoker Social History Social History Smoking status: Former smoker Tobacco type: cigarettes Second hand tobacco smoke exposure: No Alcohol intake: former Substance use: current Substance use type: marijuana Other substance usage details: 8-9 times daily Living arrangements: with family Occupation/Education: unemployed Gender identity (if verbalized by the patient): Female Sexual Orientation (if Verbalized by the Patient): Straight or Heterosexual Comments At time of signature, agree with nursing past medical, surgical, social and family history. There is no relevant family history pertinent to the presenting complaint. Exam Const: General: cooperative, healthy appearing, comfortable, no acute distress and well nourished Nutritional Appearance: well nourished Orientation/consciousness: patient oriented x3 Limitations: no limitations HENMT: Head: normal to inspection, normocephalic and atraumatic Ears: hearing grossly normal bilaterally, external ears normal, TM's normal bilaterally, EAC's normal and no periauricular adenopathy Face/Nose/Sinus: Normal external nose present, Normal nasal mucous membranes and turbinates present, normal facial exam, sinuses nontender and face symmetric Face and sinus: normal facial exam, sinuses nontender and face symmetric Mouth: Yes Normal oral and palatal mucosa present, Yes li
[2023-03-04 09:30] VITALS: BP 120/75; PULSE 76; RESP 18; TEMP 36.5; O2SAT 99
== END 2023-03-04 10:05 | disposition home or self-care (01) ==
PROVIDERS: Emergency Provider Nurse Practitioner Family; PCP Family Medicine
DX: J03.90 Acute tonsillitis, unspecified (principal); Z87.891 Personal history of nicotine dependence; F12.90 Cannabis use, unspecified, uncomplicated; K50.90 Crohn's disease, unspecified, without complications
CPT/HCPCS: 87081; 87880; 99213; G0463

== ENCOUNTER 2023-06-14 15:39 | Emergency (ER) | payer OTHER, SELFPAY ==
--- NOTE | 2023-06-14 15:46 | ED.URI ---
HPI - URI/Sore Throat General Chief Complaint: Upper Respiratory Infection Stated Complaint: Bodyaches/Sinus Time Seen by Provider: 06/14/23 15:55 Source: patient and RN notes reviewed Mode of arrival: ambulatory Limitations: no limitations History of Present Illness HPI Narrative: 32-year-old female presents with concern for 2 day history of cough, nasal congestion, sore throat. She reports body aches. She reports she has been taking Tylenol. MD elicited complaint: cough and sore throat Related Data Allergies Allergy/AdvReac Type Severity Reaction Status Date / Time morphine AdvReac Intermediate really Verified 06/14/23 15:46 bad migraines Review of Systems Review of Systems: CONSTITUTIONAL: Reports malaise EYES: Denies visual changes, redness, or discharge. ENT: Reports rhinorrhea, congestion, and sore throat. CARDIOVASCULAR: Denies chest pain, palpitations, or edema. RESPIRATORY: Reports cough. Denies dyspnea. GASTROINTESTINAL: Denies abdominal pain, nausea, vomiting, diarrhea SKIN: Denies rash or itching. MUSCULOSKELETAL: Reports myalgia. NEUROLOGIC: Denies headache. All systems reviewed & are unremarkable except as noted in HPI and below PMFSH Past Medical History Medical History Crohn's disease Gastritis Surgical History Surgical History H/O colonoscopy Family History Family History Father , Motorcycle accident Unknown family medical history Mother COPD (chronic obstructive pulmonary disease) Smoker Social History Social History Smoking status: Former smoker Tobacco type: cigarettes Second hand tobacco smoke exposure: No Alcohol intake: former Substance use: current Substance use type: marijuana Other substance usage details: 8-9 times daily Living arrangements: with family Occupation/Education: unemployed Gender identity (if verbalized by the patient): Female Sexual Orientation (if Verbalized by the Patient): Straight or Heterosexual Comments At time of signature, agree with nursing past medical, surgical, social and family history. There is no relevant family history pertinent to the presenting complaint Exam Narrative: GENERAL: Well-appearing, well-nourished, and in no acute distress. HEAD: Normocephalic EYES: PERRLA, conjunctivae clear ENT: Nares clear, turbinates edematous and erythematous, clear discharge. Mucous membranes moist. TM pearly mckenzie with dull light reflex bilaterally; no tragal tenderness. Oropharynx not erythematous without lesions. Tonsils not enlarged and without exudate, no drooling, no hoarseness, no trismus, uvula midline. NECK: Supple. No lymphadenopathy CHEST: Scattered bilateral wheeze, otherwise clear to auscultation, breath sounds equal. No rhonchi, rales, or stridor. No respiratory distress, speaks in full sentences. HEART: Regular rate and rhythm. No murmur heard. SKIN: Warm, dry, no rash. NEURO: Alert and oriented x3. PSYCH: Normal mood and affect Course Course Emergency Course: Patient is aware of diagnosis, understands and agrees to treatment plan. Anticipatory guidance given. Patient agrees to follow-up as directed and is aware of reasons to seek care at the emergency department. Portions of this record may have been created with voice recognition software Level of Care: Express Care Visit Vital Signs Vital signs: Reviewed. MDM - URI/Sore Throat MDM Narrative Medical decision making narrative: Differential diagnosis considered: Guerrero virus, strep pharyngitis, allergic rhinitis, upper respiratory tract infection, sinusitis, rhinosinusitis, nasopharyngitis. viral pharyngitis, otitis media, otitis externa, pneumonia, bronchitis, viral cough syndrome, viral syn
[2023-06-14 15:52] VITALS: BP 102/54; PULSE 79; RESP 16; TEMP 36.5; O2SAT 100
== END 2023-06-14 16:15 | disposition home or self-care (01) ==
PROVIDERS: Emergency Provider Nurse Practitioner
DX: J06.9 Acute upper respiratory infection, unspecified (principal); R06.2 Wheezing; Z87.891 Personal history of nicotine dependence; Z20.822 Contact with and (suspected) exposure to COVID-19
CPT/HCPCS: 87081; 87426; 87880; 99213; C9803; G0463

== ENCOUNTER 2023-10-18 15:28 | Emergency (ER) | payer OTHER, SELFPAY ==
--- NOTE | ~2023-10-18 | CT_ITS ---
EXAMINATION: CT abdomen pelvis w con INDICATION: Abdominal pain TECHNIQUE: Computed tomographic images of the abdomen and pelvis were obtained after the administrati on of 100 cc of Omnipaque 350 intravenous contrast. The dose-length product (DLP) was 955.37 mGy-cm. Automated exposure control and iterative reconstruction technique were employed. COMPARISON: 11/26/2020 FINDINGS: The lung bases are clear. The heart size is normal. Changes of cholecystectomy are noted. T he liver, spleen, pancreas, and adrenal glands are normal. The kidneys are unremarkable. No pathologi leydi enlarged abdominal or pelvic lymph nodes are identified. No free intraperitoneal gas or evidenc e of bowel obstruction. The appendix is normal. IMPRESSION: 1. No CT correlate for the patient's symptoms. Reviewed, dictated and finalized at location F.
[2023-10-18 15:58] VITALS: BP 136/81; PULSE 79; RESP 18; TEMP 36.4; O2SAT 99
[2023-10-18 17:52] VITALS: BP 109/66; PULSE 74; RESP 16; TEMP 36.7; O2SAT 100
--- NOTE | 2023-10-18 17:55 | ED.ABDPAIN ---
HPI - Abdominal Pain General Chief Complaint: Abdominal Pain <Adalberto Julio César Simon III, DO - Last Filed: 10/20/23 12:22> Stated Complaint: bloated, abd pain/fatigue <Adalberto Julio César Simon III, DO - Last Filed: 10/20/23 12:22> Time Seen by Provider: 10/18/23 17:49 <Adalberto Julio César Simon III, DO - Last Filed: 10/20/23 12:22> History of Present Illness HPI narrative: Pt has history of Crohn's disease and has had lower abdominal pain for 3 days. Pt has some diarrhea. Pt denies bloody stools or fever. Pt says this feels like her Crohn's. <Adalberto Julio César Simon III, DO - Last Filed: 10/20/23 12:22> Related Data Allergies/Adverse Reactions: Allergies Allergy/AdvReac Type Severity Reaction Status Date / Time morphine AdvReac Intermediate really Verified 06/14/23 15:46 bad migraines <Adalberto Julio César Simon III, DO - Last Filed: 10/20/23 12:22> Review of Systems Review of Systems: All systems reviewed & are unremarkable except as noted in HPI and below <Adalberto Julio César Simon III, DO - Last Filed: 10/20/23 12:22> PMFSH Past Medical History Medical History: Medical History Crohn's disease Gastritis <Adalberto Julio César Simon III, DO - Last Filed: 10/20/23 12:22> Surgical History Surgical History: Surgical History H/O colonoscopy <Adalberto Julio César Simon III, DO - Last Filed: 10/20/23 12:22> Family History Family History: Family History Father , Motorcycle accident Unknown family medical history Mother COPD (chronic obstructive pulmonary disease) Smoker <Adalberto Julio César Simon III, DO - Last Filed: 10/20/23 12:22> Social History Social History: Social History Smoking status: Former smoker Tobacco type: cigarettes Second hand tobacco smoke exposure: No Alcohol intake: former Substance use: current Substance use type: marijuana Other substance usage details: 8-9 times daily Living arrangements: with family Occupation/Education: unemployed Gender identity (if verbalized by the patient): Female Sexual Orientation (if Verbalized by the Patient): Straight or Heterosexual <Adalberto Julio César Simon III, DO - Last Filed: 10/20/23 12:22> Exam Const: General: healthy appearing and no acute distress <Adalberto Julio César Simon III, DO - Last Filed: 10/20/23 12:22> Nutritional Appearance: well nourished <Adalberto Julio César Simon III, DO - Last Filed: 10/20/23 12:22> Orientation/consciousness: patient oriented x3 <Adalberto Julio César Simon III, DO - Last Filed: 10/20/23 12:22> Limitations: no limitations <Adalberto Julio César Simon III, DO - Last Filed: 10/20/23 12:22> Resp: Effort & Inspection: normal respiratory effort <Adalberto Julio César Simon III, DO - Last Filed: 10/20/23 12:22> Auscultation: clear to auscultation bilaterally <Adalberto Julio César Simon III, DO - Last Filed: 10/20/23 12:22> Cardio: Rate: regular rate <Adalberto Julio César Simon III, DO - Last Filed: 10/20/23 12:22> Rhythm: regular rhythm <Adalberto Julio César Simon III, DO - Last Filed: 10/20/23 12:22> GI: GI Palp: Yes Soft to palpation and Yes Tenderness to palpation present (GI) (mild lower abdomina tenderness) <Adalberto Julio César Simon III, DO - Last Filed: 10/20/23 12:22> Auscultation: normal bowel sounds <Adalberto Julio César Simon III, DO - Last Filed: 10/20/23 12:22> Back/Spine/Pelvis: Back: no CVA tenderness <Adalberto Julio César Simon III, DO - Last Filed: 10/20/23 12:22> Skin: General skin exam: normal color <Adalberto Julio César Simon III, DO - Last Filed: 10/20/23 12:22> Rashes: no rashes <Adalberto Julio César Simon III, DO - Last Filed: 10/20/23 12:22> Wounds: no wounds <Adalberto Angela Simon III, DO - Last Filed: 10/20/23 12:22> Neuro: General: patient oriented x3, moves all extremities, no meningeal signs, no focal motor deficits and CN's II-X
[2023-10-18 18:07] LABS: Basophils Absolute Auto 0.1 K/mm3 (0.0-0.1); Basophils Percent Auto 0.7 % (0.2-1.2); Eosinophils Absolute Auto 0.3 K/mm3 (0-0.3); Eosinophils Percent Auto 3.1 % (0-4.4); Hematocrit 43.4 % (37.0-47.0); Hemoglobin 14.2 g/dL (12.0-15.0); Immature Granulocyte Absolute 0.05 K/mm3 (0.00-0.031); Immature Granulocyte Percent A 0.5 % (0-0.5); Lymphocytes Absolute Auto 1.83 K/mm3 (0.9-3.2); Lymphocytes Percent Auto 17.7 % (18.3-44.2); Mean Corpuscular HGB Conc 32.7 g/dl (32-36); Mean Corpuscular Volume 91.6 fl (80-100); Mean Platelet Volume 9.4 fl (7.4-10.4); Monocytes Absolute Auto 0.6 K/mm3 (0.1-0.6); Monocytes Percent Auto 5.9 % (2.6-8.5); Neutrophils Absolute Auto 7.5 K/mm3 (1.3-6.7); Neutrophils Percent Auto 72.1 % (45.5-73.1); Platelet Count Result 425 k/mm3 (150-375); Red Blood Count 4.74 M/mm3 (4.2-5.4); Red Cell Distribution Width 14.6 % (11.5-14.5); White Blood Count 10.4 K/mm3 (4.5-10.0)
[2023-10-18 18:16] LABS: Alanine Aminotransferase 17 U/L (6-35); Albumin Level 4.6 g/dL (3.5-5.1); Alkaline Phosphatase 32 U/L (38-126); Anion Gap 5 mmol/L (8-16); Aspartate Amino Transferase 24 U/L (14-36); Bacteria Urine None Seen /hpf; Bilirubin,Total 0.8 mg/dL (0.2-1.3); Blood Urea Nitrogen 10 mg/dL (7-17); Calcium 9.3 mg/dL (8.4-10.2); Carbon Dioxide 26 mmol/L (22-30); Chloride 104 mmol/L (98-107); Estimated CRCL calculation 146 ml/min; Estimated Glomerular Filt Rate > 60; Glucose 93 mg/dL (65-110); Lipase 109 U/L (23-300); Non Pathogenic Casts 0-2; Potassium 3.8 mmol/L (3.4-5.0); RBC Urine 0-2 /hpf (0-2); Sodium 135 mmol/L (137-145); Squamous Epithelial Cell Urine Moderate /hpf (Few)
[2023-10-18] MEDS: fentaNYL CITRATE INJ (*CRX) 100 MCG/2 ML VIAL 50 MCG IV PUSH (18:24)
[2023-10-18 18:31] VITALS: BP 105/74; PULSE 68; RESP 16; TEMP 36.8; O2SAT 98
[2023-10-18 18:33] LABS: Appearance Urine Clear (Clear); Color Urine Yellow (Yellow)
[2023-10-18 18:34] LABS: Protein Urine Negative (Negative); pH Urine 7.5 (5.0-9.0)
[2023-10-18 18:35] LABS: Blood Urine Trace-intact (Negative); Glucose Urine UA Negative (Negative); Ketones Urine Negative (Negative); Nitrate Urine Negative (Negative)
[2023-10-18 18:36] LABS: Bilirubin Urine Negative (Negative); Leukocyte Esterase Ur Negative LEU/UL (Negative); Urobilinogen Urine 0.2 mg/dL (<2.0)
[2023-10-18 18:37] LABS: Add Urine Microscopic? YES
== END 2023-10-18 21:01 | disposition home or self-care (01) ==
PROVIDERS: Emergency Medicine; Emergency Provider Emergency Medicine
DX: R10.30 Lower abdominal pain, unspecified (principal); K50.90 Crohn's disease, unspecified, without complications; K29.70 Gastritis, unspecified, without bleeding; Z87.891 Personal history of nicotine dependence
CPT/HCPCS: 36415; 74177; 80053; 81001; 81025; 83690; 85025; 87086; 96374; 99284; J3010; Q9967

== ENCOUNTER 2023-12-03 16:20 | Emergency (ER) | payer OTHER, SELFPAY ==
--- NOTE | 2023-12-03 16:23 | ED.GENADULT ---
HPI - General Adult General Chief complaint: Unspecified Stated complaint: heart beating fast ,exhausted after giving plasma Time Seen by Provider: 12/03/23 16:36 Source: patient Mode of arrival: ambulatory Limitations: no limitations History of Present Illness HPI narrative: 33 year old female presents with concern for fatigue, feeling of heart beating fast after donating plasma. Reports she donated plasma morning, she has donated plasma before without incident. She reports she began feeling very tired and feeling like her heart was beating fast. She reports she has drank some fluids, and has been eating. She denies vomiting. She denies swollen lips, swollen tongue, trouble breathing. She is currently on her menstrual. MD complaint: fatigue Related Data Home Medications Medication Instructions Recorded Confirmed citalopram 20 mg tablet mg 12/03/23 Allergies Allergy/AdvReac Type Severity Reaction Status Date / Time morphine AdvReac Intermediate really Verified 12/03/23 16:31 bad migraines Review of Systems Review of Systems: CONSTITUTIONAL: Denies malaise, chills, sweats, or fever. EYES: Denies visual changes, redness, or discharge. ENT: Denies swollen lips, swollen tongue CARDIOVASCULAR: Denies chest pain, palpitations, or edema. Reports fast heartbeat RESPIRATORY: Denies cough or dyspnea. GASTROINTESTINAL: Denies abdominal pain, nausea, vomiting SKIN: Denies rash or itching. NEUROLOGIC: Denies numbness, weakness, or headache. PSYCHIATRIC: Denies anxiety or depression. All systems reviewed & are unremarkable except as noted in HPI and below PMFSH Past Medical History Medical History Crohn's disease Gastritis Surgical History Surgical History H/O colonoscopy Family History Family History Father , Motorcycle accident Unknown family medical history Mother COPD (chronic obstructive pulmonary disease) Smoker Social History Social History Smoking status: Former smoker Tobacco type: cigarettes Second hand tobacco smoke exposure: No Alcohol intake: former Substance use: current Substance use type: marijuana Other substance usage details: 8-9 times daily Living arrangements: with family Occupation/Education: unemployed Gender identity (if verbalized by the patient): Female Sexual Orientation (if Verbalized by the Patient): Straight or Heterosexual Comments At time of signature, agree with nursing past medical, surgical, social and family history. There is no relevant family history pertinent to the presenting complaint Exam Narrative: GENERAL: Well-appearing, well-nourished, and in no acute distress. HEAD: Normocephalic, atraumatic. EYES: PERRLA, sclera clear, and EOMI. No nystagmus. ENT: Nares clear, turbinates pink, no rhinorrhea or epistaxis. Mucous membranes moist. TM pearly mckenzie with sharp light reflex bilaterally; no tragal tenderness. Oropharynx without erythema or lesions. Tonsils not enlarged and without exudate. NECK: Supple. No lymphadenopathy. CHEST: No respiratory distress. Clear to auscultation. No bony deformities, no asymmetry. Speaks in full sentences. HEART: Regular rate and rhythm. No murmur heard. Normal peripheral pulses. SKIN: Warm, dry, no visible rash. NEURO: Alert and oriented x3. PSYCH: Normal mood and affect Course Course Emergency Course: Patient advised of normal exam findings, I offered transfer to emergency room for further evaluation, she would like to go home at this time and hydrate and will go to the emergency room if her symptoms worsen or change. Patient is aware of, understands and agrees to treatment plan. Anticipatory guidance given. Patient agrees to follow-up a
[2023-12-03 16:31] VITALS: BP 114/58; PULSE 111; RESP 18; TEMP 36.4; O2SAT 98
== END 2023-12-03 16:50 | disposition home or self-care (01) ==
PROVIDERS: Emergency Provider Nurse Practitioner; PCP Emergency Medicine
DX: R53.83 Other fatigue (principal); K50.90 Crohn's disease, unspecified, without complications; F12.90 Cannabis use, unspecified, uncomplicated; Z87.891 Personal history of nicotine dependence
CPT/HCPCS: 99213; G0463

== ENCOUNTER 2023-12-15 15:37 | Emergency (ER) | payer OTHER, SELFPAY ==
--- NOTE | ~2023-12-15 | CT_ITS ---
EXAMINATION: CT abdomen pelvis w con DATE: 12/15/2023 17:51 INDICATION: Diffuse abdominal pain. Crohn's disease. TECHNIQUE: Computed tomography (CT) of the abdomen and pelvis was performed with 100 mL Omnipaque-350 intravenous contrast. Automated exposure control and iterative reconstruction technique were employe d. The dose-length product was 1539.86 mGy-cm. COMPARISON: 10/18/2023 FINDINGS: 4 mm subpleural nodule at the superior segment of the right lower lobe. Heart size is normal. Atheros clerotic coronary artery calcific lesion. No pericardial or pleural effusion. Cholecystectomy clips a t the gallbladder fossa. Liver, spleen, pancreas, bilateral adrenal glands or kidneys are normal. Nor mal appendix. No bowel obstruction. There is mild diffuse wall thickening of the colon consistent wit h colitis likely related to provided history of Crohn's disease. Decompressed bladder, anteverted [place] carlos and bilateral adnexa are unremarkable. No free intraperitoneal gas or fluid. No pathologically en larged abdominal or pelvic lymphadenopathy. Bones are unremarkable. IMPRESSION: 1. Mild diffuse wall thickening of the colon consistent with colitis which is most likely either infe ctious or inflammatory in etiology. 2. 4 mm right lower lobe nodule given patient age and size of the nodule is most likely sequela of ol d granulomatous disease. Reviewed, dictated and finalized at location A. IMPRESSION: 1. Mild diffuse wall thickening of the colon consistent with colitis which is m ost likely either infectious or inflammatory in etiology. 2. 4 mm right lower lobe nodule given patient age and size of the nodule is mos t likely sequela of old granulomatous disease.
[2023-12-15 15:39] VITALS: BP 131/80; PULSE 83; RESP 18; O2SAT 100
--- NOTE | 2023-12-15 16:10 | PC.NURSE ---
requested urine sample from patient and directed them to the bathroom. when they came back they said they forgot to collect the sample when they were in there. educated patient to provide sample with any urge to urinate and provided call light to notify staff
[2023-12-15 16:40] LABS: Basophils Absolute Auto 0.1 K/mm3 (0.0-0.1); Basophils Percent Auto 0.8 % (0.2-1.2); Eosinophils Absolute Auto 0.2 K/mm3 (0-0.3); Eosinophils Percent Auto 1.6 % (0-4.4); Hematocrit 41.6 % (37.0-47.0); Hemoglobin 13.5 g/dL (12.0-15.0); Immature Granulocyte Absolute 0.07 K/mm3 (0.00-0.031); Immature Granulocyte Percent A 0.7 % (0-0.5); Lymphocytes Percent Auto 17.1 % (18.3-44.2); Mean Corpuscular HGB Conc 32.5 g/dl (32-36); Mean Corpuscular Hemoglobin 30.2 pg (26-34); Mean Corpuscular Volume 93.1 fl (80-100); Mean Platelet Volume 9.4 fl (7.4-10.4); Monocytes Absolute Auto 0.5 K/mm3 (0.1-0.6); Monocytes Percent Auto 4.7 % (2.6-8.5); Neutrophils Absolute Auto 7.9 K/mm3 (1.3-6.7); Neutrophils Percent Auto 75.1 % (45.5-73.1); Platelet Count Result 393 k/mm3 (150-375); Red Blood Count 4.47 M/mm3 (4.2-5.4); Red Cell Distribution Width 13.6 % (11.5-14.5); White Blood Count 10.5 K/mm3 (4.5-10.0)
--- NOTE | 2023-12-15 16:43 | ED.ABDPAIN ---
HPI - Abdominal Pain General Chief Complaint: Abdominal Pain Stated Complaint: abdominal pain, diarrhea Time Seen by Provider: 12/15/23 16:01 History of Present Illness HPI narrative: 33-year-old female presents emergency room for evaluation of diffuse abdominal pain. Patient's history Crohn's disease, last flare was couple months ago. Patient states her Crohn's disease is adequately managed with amitriptyline. Patient states her Crohn's disease is managed by her primary care physician. Has an appointment evaluated by GI next month. Denies back pain. Denies dysuria. Transfuse. States her last bowel movement was this morning, describes as yellow and frothy. Denies blood in her stool. Related Data Home Medications Medication Instructions Recorded Confirmed citalopram 20 mg tablet mg 12/03/23 Allergies Allergy/AdvReac Type Severity Reaction Status Date / Time morphine AdvReac Intermediate really Verified 12/15/23 15:38 bad migraines Review of Systems Review of Systems: ROS unremarkable except for noted in HPI PMFSH Past Medical History Medical History Crohn's disease Gastritis Surgical History Surgical History H/O colonoscopy Family History Family History Father , Motorcycle accident Unknown family medical history Mother COPD (chronic obstructive pulmonary disease) Smoker Social History Social History Smoking status: Former smoker Tobacco type: cigarettes Second hand tobacco smoke exposure: No Alcohol intake: former Substance use: current Substance use type: marijuana Other substance usage details: 8-9 times daily Living arrangements: with family Occupation/Education: unemployed Gender identity (if verbalized by the patient): Female Sexual Orientation (if Verbalized by the Patient): Straight or Heterosexual Exam Narrative: GENERAL: Well-appearing, well-nourished, no physical limitations, and in no acute distress. HEAD: Normocephalic, atraumatic. EYES: Conjunctivae normal, PERRLA and EOMI. ENT: External nose normal, Nares clear, no rhinorrhea or epistaxis. Mucous membranes moist. Oropharynx without tonsillar hypertrophy exudate or other lesions. External ears normal, bilateral TMs normal bilaterally NECK: Supple. No meningeal signs. No adenopathy or masses. No carotid bruits or JVD CHEST: Clear to auscultation. No respiratory distress. No wheezes rales or rhonchi. No tenderness. HEART: Regular rate and rhythm. No murmur heard. Normal peripheral pulses. ABDOMEN: Soft, nontender, nondistended, normal active bowel sounds. : Normal external male/female exam. BACK: No CVA tenderness; No cervical/thoracic/lumbar tenderness, step-offs, bony abnormality; FROM EXTREMITIES: Normal range of motion. No edema. No clubbing or cyanosis SKIN: Warm, dry, no rash. No noted wounds NEURO: No focal deficits. Alert and oriented x3. MAEW. CN's II-XI intact bilaterally, normal gait PSYCH: Cooperative. Normal mood and affect. Course Vital Signs Vital signs: Vital Signs Pulse Rate 83 12/15/23 15:39 Respiratory Rate 18 12/15/23 15:39 Blood Pressure 131/80 12/15/23 15:39 Pulse Oximetry 100 12/15/23 15:39 Oxygen Delivery Room Air 12/15/23 15:39 Pulse Rate 83 12/15/23 15:39 Respiratory Rate 18 12/15/23 15:39 Blood Pressure 131/80 12/15/23 15:39 Pulse Oximetry 100 12/15/23 15:39 Oxygen Delivery Room Air 12/15/23 15:39 MDM - Abdominal Pain MDM Narrative Medical decision making narrative: 33-year-old female history of Crohn's disease presented with diffuse abdominal pain. Exam showed no peritoneal signs. CT shows evidence of colitis consistent with a Crohn's flare. Patient is well-appearin
[2023-12-15] MEDS: ONDANSETRON INJ 4 MG/2 ML VIAL IV PUSH (16:47)
[2023-12-15] MEDS: SODIUM CHLORIDE 0.9% IV 1,000 ML 999 ML IV CONT (16:47)
[2023-12-15 16:51] LABS: Alanine Aminotransferase 17 U/L (6-35); Albumin Level 3.9 g/dL (3.5-5.1); Alkaline Phosphatase 27 U/L (38-126); Anion Gap 2 mmol/L (4-12); Aspartate Amino Transferase 21 U/L (14-36); Bilirubin,Total 0.6 mg/dL (0.2-1.3); Blood Urea Nitrogen 7 mg/dL (7-17); Calcium 8.8 mg/dL (8.4-10.2); Carbon Dioxide 30 mmol/L (22-30); Chloride 104 mmol/L (98-107); Estimated CRCL calculation 125 ml/min; Estimated Glomerular Filt Rate > 60; Glucose 91 mg/dL (65-110); Lipase 67 U/L (23-300); Potassium 3.6 mmol/L (3.4-5.0); Sodium 136 mmol/L (137-145)
[2023-12-15 17:35] LABS: Appearance Urine Cloudy (Clear); Bacteria Urine None Seen /hpf; Bilirubin Urine Negative (Negative); Blood Urine Negative (Negative); Color Urine Yellow (Yellow); Glucose Urine UA Negative (Negative); Ketones Urine Trace mg/dL (Negative); Leukocyte Esterase Ur 2+ LEU/UL (Negative); Nitrate Urine Negative (Negative); Non Pathogenic Casts 0-2; Protein Urine Trace mg/dL (Negative); RBC Urine 0-2 /hpf (0-2); Specific Grav Ur 1.025 (1.001-1.035); Squamous Epithelial Cell Urine Few /hpf (Few); WBC Urine 21-50 /hpf (0-3)
--- NOTE | 2023-12-15 17:48 | PC.NURSE ---
Pt returned to room [address] at this time
[2023-12-15 17:57] LABS: Add Urine Microscopic? YES
[2023-12-15 18:02] LABS: CRP < 0.5 mg/dL (<1.0)
[2023-12-15] MEDS: dexAMETHasone SOD PHOS INJ 10 MG/ML 1 ML VIAL 20 MG IV PUSH (18:18)
[2023-12-15 18:21] VITALS: BP 129/75; PULSE 75; RESP 15; O2SAT 100
[2023-12-15 18:49] LABS: Erythrocyte Sedimentation Rate 10 mm/hr (0-20)
== END 2023-12-15 18:29 | disposition home or self-care (01) ==
PROVIDERS: Emergency Medicine; Emergency Provider Nurse Practitioner Family; PCP Emergency Medicine
DX: K52.9 Noninfective gastroenteritis and colitis, unspecified (principal); N39.0 Urinary tract infection, site not specified; K50.90 Crohn's disease, unspecified, without complications; Z87.891 Personal history of nicotine dependence; R91.1 Solitary pulmonary nodule
CPT/HCPCS: 36415; 74177; 80053; 81001; 81025; 83690; 85025; 85652; 86140; 87086; 96361; 96374; 96375; 99284; J1100; J2405; J7030; Q9967

== ENCOUNTER 2024-01-30 14:04 | Emergency (ER) | payer OTHER, SELFPAY ==
[2024-01-30 14:06] VITALS: BP 125/74; PULSE 100; RESP 16; TEMP 36.1; O2SAT 100
--- NOTE | 2024-01-30 15:28 | ED.ABDPAIN ---
HPI - Abdominal Pain General Chief Complaint: Abdominal Pain Stated Complaint: crohn's flare up , weakness Time Seen by Provider: 01/30/24 15:21 Source: patient Mode of arrival: ambulatory Limitations: no limitations History of Present Illness HPI narrative: This is a 33-year-old female With PMH of Crohn who presents to the ED for chief complaint of abdominal pain, N/ V for the past 3 days. Patient feels that this is similar to a Crohn's flare. describes the abdominal pain as more of a general bloating and less of the severe pain. States that she has been able to tolerate fluids well but has some nausea with solids. Endorses intermittent loose stools. Last bowel movement this morning. States a lot of the symptoms are typical for her Crohn's disease but she has been out of her citalopram amitriptyline, which she feels helps with her abdominal symptoms. She is pending new patient appointment with GI doctor this month. Denies fevers, chills, back pain, flank pain, urinary symptoms, GI bleeding symptoms, headache, cough. Related Data Home Medications Medication Instructions Recorded Confirmed citalopram 20 mg tablet mg 12/03/23 Allergies Allergy/AdvReac Type Severity Reaction Status Date / Time morphine AdvReac Intermediate really Verified 01/30/24 14:05 bad migraines Review of Systems Review of Systems: All systems as dictated in HPI [facility] Past Medical History Medical History Crohn's disease Gastritis Surgical History Surgical History H/O colonoscopy Family History Family History Father , Motorcycle accident Unknown family medical history Mother COPD (chronic obstructive pulmonary disease) Smoker Social History Social History Smoking status: Former smoker Tobacco type: cigarettes Second hand tobacco smoke exposure: No Alcohol intake: former Substance use: current Substance use type: marijuana Other substance usage details: 8-9 times daily Living arrangements: with family Occupation/Education: unemployed Gender identity (if verbalized by the patient): Female Sexual Orientation (if Verbalized by the Patient): Straight or Heterosexual Exam Narrative: GENERAL: Well-appearing, well-nourished, and in no acute distress. HEAD: Normocephalic, atraumatic. EYES: PERRLA and EOMI. ENT: Nares clear, no rhinorrhea or epistaxis. Mucous membranes moist. Oropharynx without tonsillar hypertrophy exudate or other lesions. NECK: Supple. No adenopathy or masses. CHEST: No respiratory distress. Clear to auscultation. No wheezes rales or rhonchi HEART: Regular rate and rhythm. No murmur heard. Normal peripheral pulses. ABDOMEN: Soft, nontender, nondistended, normal active bowel sounds. MSK: Normal range of motion. No edema. SKIN: Warm, dry, no rash. NEURO: Alert and oriented x4. No focal deficits. PSYCH: Normal mood and affect. Course Vital Signs Vital signs: Vital Signs Temperature 97 F L 01/30/24 14:06 Pulse Rate 100 01/30/24 14:06 Respiratory Rate 16 01/30/24 14:06 Blood Pressure 125/74 01/30/24 14:06 Pulse Oximetry 100 01/30/24 14:06 Temperature 97 F L 01/30/24 14:06 Pulse Rate 100 01/30/24 14:06 Respiratory Rate 16 01/30/24 14:06 Blood Pressure 125/74 01/30/24 14:06 Pulse Oximetry 100 01/30/24 14:06 MDM - Abdominal Pain MDM Narrative Medical decision making narrative: this is a 33-year-old female who presents to the ED for chief complaint of abdominal bloating, nausea and vomiting. She feels it is similar to her Crohn's flare. Vitals are normal. Exam remarkable for the above. No evidence of acute abdomen to warrant CT imaging at this time. She is resting comfortably
[2024-01-30 16:00] LABS: Basophils Absolute Auto 0.1 K/mm3 (0.0-0.1); Basophils Percent Auto 1.1 % (0.2-1.2); Eosinophils Absolute Auto 0.5 K/mm3 (0-0.3); Eosinophils Percent Auto 4.7 % (0-4.4); Hematocrit 39.3 % (37.0-47.0); Hemoglobin 13.4 g/dL (12.0-15.0); Immature Granulocyte Absolute 0.14 K/mm3 (0.00-0.031); Immature Granulocyte Percent A 1.4 % (0-0.5); Lymphocytes Absolute Auto 1.77 K/mm3 (0.9-3.2); Mean Corpuscular HGB Conc 34.1 g/dl (32-36); Mean Corpuscular Hemoglobin 31.1 pg (26-34); Mean Corpuscular Volume 91.2 fl (80-100); Mean Platelet Volume 9.1 fl (7.4-10.4); Monocytes Absolute Auto 0.5 K/mm3 (0.1-0.6); Monocytes Percent Auto 5.3 % (2.6-8.5); Neutrophils Absolute Auto 6.9 K/mm3 (1.3-6.7); Neutrophils Percent Auto 69.5 % (45.5-73.1); Platelet Count Result 374 k/mm3 (150-375); Red Blood Count 4.31 M/mm3 (4.2-5.4); Red Cell Distribution Width 13.5 % (11.5-14.5); White Blood Count 9.9 K/mm3 (4.5-10.0)
[2024-01-30 16:10] VITALS: BP 124/78; PULSE 74; RESP 16; TEMP 36.8; O2SAT 100
[2024-01-30 16:10] LABS: Alanine Aminotransferase 18 U/L (6-35); Alkaline Phosphatase 28 U/L (38-126); Anion Gap 7 mmol/L (4-12); Aspartate Amino Transferase 21 U/L (14-36); Bilirubin,Total 0.5 mg/dL (0.2-1.3); Blood Urea Nitrogen 10 mg/dL (7-17); Calcium 8.7 mg/dL (8.4-10.2); Carbon Dioxide 26 mmol/L (22-30); Chloride 104 mmol/L (98-107); Estimated CRCL calculation 112 ml/min; Estimated Glomerular Filt Rate > 60; Glucose 98 mg/dL (65-110); Lipase 143 U/L (23-300); Potassium 3.8 mmol/L (3.4-5.0); Sodium 137 mmol/L (137-145)
[2024-01-30] MEDS: DICYCLOMINE HCL 10 MG CAPSULE 20 MG PO (16:11)
[2024-01-30] MEDS: ONDANSETRON INJ 4 MG/2 ML VIAL IV PUSH (16:14)
[2024-01-30] MEDS: methylPREDNISolone SOD SUCC 40 MG VIAL IV PUSH (16:14)
[2024-01-30 16:18] LABS: Appearance Urine Cloudy (Clear); Bacteria Urine 1+ /hpf; Bilirubin Urine Negative (Negative); Blood Urine Negative (Negative); Color Urine Yellow (Yellow); Glucose Urine UA Negative (Negative); Ketones Urine Negative (Negative); Leukocyte Esterase Ur Negative LEU/UL (Negative); Nitrate Urine Negative (Negative); Non Pathogenic Casts 0-2; Protein Urine Negative (Negative); RBC Urine 0-2 /hpf (0-2); Squamous Epithelial Cell Urine Occasional /hpf (Few); WBC Urine 0-5 /hpf (0-3); pH Urine 7.5 (5.0-9.0)
[2024-01-30 16:40] LABS: Add Urine Microscopic? YES
[2024-01-30 17:02] VITALS: BP 136/76; PULSE 76; RESP 16; TEMP 36.6; O2SAT 100
== END 2024-01-30 17:04 | disposition home or self-care (01) ==
PROVIDERS: Emergency Provider Physician Assistant; PCP Emergency Medicine
DX: R10.9 Unspecified abdominal pain (principal); K50.90 Crohn's disease, unspecified, without complications; Z87.891 Personal history of nicotine dependence
CPT/HCPCS: 36415; 80048; 80076; 81001; 83690; 85025; 96374; 96375; 99284; A9270; J2405; J2919

== ENCOUNTER 2024-02-16 03:09 | Emergency (ER) | payer OTHER, SELFPAY ==
[2024-02-16 03:10] VITALS: BP 114/78; PULSE 91; RESP 15; TEMP 36.7; O2SAT 98
[2024-02-16 03:22] VITALS: BP 114/78; PULSE 88; RESP 17; O2SAT 97
[2024-02-16 03:25] LABS: Basophils Absolute Auto 0.1 K/mm3 (0.0-0.1); Basophils Percent Auto 0.9 % (0.2-1.2); Eosinophils Absolute Auto 0.3 K/mm3 (0-0.3); Eosinophils Percent Auto 2.2 % (0-4.4); Hematocrit 44.2 % (37.0-47.0); Hemoglobin 15.4 g/dL (12.0-15.0); Immature Granulocyte Absolute 0.13 K/mm3 (0.00-0.031); Lymphocytes Percent Auto 25.3 % (18.3-44.2); Mean Corpuscular HGB Conc 34.8 g/dl (32-36); Mean Corpuscular Hemoglobin 31.2 pg (26-34); Mean Corpuscular Volume 89.5 fl (80-100); Mean Platelet Volume 9.5 fl (7.4-10.4); Monocytes Absolute Auto 0.7 K/mm3 (0.1-0.6); Monocytes Percent Auto 5.1 % (2.6-8.5); Neutrophils Absolute Auto 8.3 K/mm3 (1.3-6.7); Neutrophils Percent Auto 65.5 % (45.5-73.1); Platelet Count Result 371 k/mm3 (150-375); Red Blood Count 4.94 M/mm3 (4.2-5.4); Red Cell Distribution Width 13.2 % (11.5-14.5); White Blood Count 12.6 K/mm3 (4.5-10.0)
[2024-02-16 03:41] LABS: Alanine Aminotransferase 16 U/L (6-35); Albumin Level 4.5 g/dL (3.5-5.1); Alkaline Phosphatase 25 U/L (38-126); Anion Gap 16 mmol/L (4-12); Aspartate Amino Transferase 26 U/L (14-36); Bilirubin,Total 0.5 mg/dL (0.2-1.3); Blood Urea Nitrogen 5 mg/dL (7-17); Calcium 9.3 mg/dL (8.4-10.2); Carbon Dioxide 17 mmol/L (22-30); Chloride 103 mmol/L (98-107); Estimated CRCL calculation 113 ml/min; Estimated Glomerular Filt Rate > 60; Glucose 113 mg/dL (65-110); Lipase 207 U/L (23-300); Potassium 3.1 mmol/L (3.4-5.0); Sodium 136 mmol/L (137-145)
--- NOTE | 2024-02-16 04:10 | ED.GENADULT ---
HPI - General Adult General Chief complaint: Abdominal Pain Stated complaint: abd pain, n/v Time Seen by Provider: 02/16/24 03:51 History of Present Illness HPI narrative: This is a 33-year-old female presenting ED with nausea and vomiting. Patient says that she was drinking Scarlett all night. She then had multiple episodes of vomiting. She developed crampy abdominal pain. She called an ambulance then come the hospital. She does not have any fevers chills chest pain or difficulty breathing. She typically develops crampy pain she vomits. Related Data Home Medications Medication Instructions Recorded Confirmed citalopram 20 mg tablet mg 12/03/23 Allergies Allergy/AdvReac Type Severity Reaction Status Date / Time morphine AdvReac Intermediate really Verified 02/16/24 03:23 bad migraines PMFSH Past Medical History Medical History Crohn's disease Gastritis Surgical History Surgical History H/O colonoscopy Family History Family History Father , Motorcycle accident Unknown family medical history Mother COPD (chronic obstructive pulmonary disease) Smoker Social History Social History Smoking status: Former smoker Tobacco type: cigarettes Second hand tobacco smoke exposure: No Alcohol intake: former Substance use: current Substance use type: marijuana Other substance usage details: 8-9 times daily Living arrangements: with family Occupation/Education: unemployed Gender identity (if verbalized by the patient): Female Sexual Orientation (if Verbalized by the Patient): Straight or Heterosexual Exam Narrative: APPEARANCE: No apparent distress. Well-appearing Head: atraumatic. EYES: EOMI, NOSE: Atraumatic NECK: Trachea midline RESPIRATORY: No increased rate of breathing clear to auscultation CARDIOVASCULAR: RRR, ABDOMINAL: Non-distended soft nontender no guarding or rebound MUSCULOSKELETAl: No obvious deformities NEURO: Alert. Moving 4/4 extremities SKIN:: Warm, dry. Normal color PSYCHIATRIC: Normal affect Course Vital Signs Vital signs: Vital Signs Temperature 98.1 F 02/16/24 03:10 Pulse Rate 91 02/16/24 03:10 Respiratory Rate 15 02/16/24 03:10 Blood Pressure 114/78 02/16/24 03:10 Pulse Oximetry 98 02/16/24 03:10 Oxygen Delivery Room Air 02/16/24 03:10 Temperature 98.1 F 02/16/24 03:10 Pulse Rate 88 02/16/24 03:22 Respiratory Rate 17 02/16/24 03:22 Blood Pressure 114/78 02/16/24 03:22 Pulse Oximetry 97 02/16/24 03:22 Oxygen Delivery Room Air 02/16/24 03:10 Medical Decision Making MDM Narrative Medical decision making narrative: -Course: This is a 33-year-old female presenting with nausea and vomiting after a night of drinking Scarlett. Vital signs are stable in her abdominal exam is benign. She has some minor electrolyte abnormalities this resulted for binge drinking. Otherwise she is well appearing with stable vital signs. Patient was given antiemetics and Pepcid for stomach. Patient discharged return precautions. -DDX includes but is not limited to: Alcohol abuse, gastroenteritis -Co-morbidities complicating care: Crohn's disease -Independent interpretation of studies: Labs -Dx tests considered but not ordered: CT abdomen pelvis-benign abdominal exam -Interventions: Zofran, Pepcid -Shared decision making / Disposition: Discharge -RX Zofran Vital Signs Vital Signs: Vital Signs Temperature 98.1 F 02/16/24 03:10 Pulse Rate 91 02/16/24 03:10 Respiratory Rate 15 02/16/24 03:10 Blood Pressure 114/78 02/16/24 03:10 Pulse Oximetry 98 02/16/24 03:10 Oxygen Delivery Room Air 02/16/24 03:10 Temperature 98.1 F 02/16/24 03:10 Pulse Rate 88
[2024-02-16] MEDS: FAMOTIDINE 20 MG/2 ML VIAL IV PUSH (04:24)
[2024-02-16] MEDS: POTASSIUM CHLORIDE 20 MEQ ER TABLET 40 MEQ PO (04:24)
[2024-02-16] MEDS: ONDANSETRON INJ 4 MG/2 ML VIAL IV PUSH (04:24)
== END 2024-02-16 04:30 | disposition home or self-care (01) ==
PROVIDERS: Emergency Provider Emergency Medicine; PCP Emergency Medicine
DX: T51.0X1A Toxic effect of ethanol, accidental (unintentional), initial encounter (principal); K50.90 Crohn's disease, unspecified, without complications; Z87.891 Personal history of nicotine dependence; Z79.899 Other long term (current) drug therapy
CPT/HCPCS: 36415; 80053; 83690; 85025; 96374; 96375; 99284; A9270; J2405

== ENCOUNTER 2024-03-05 15:52 | Emergency (ER) | payer OTHER, SELFPAY ==
[2024-03-05 17:50] VITALS: BP 123/83; PULSE 68; TEMP 36.6; O2SAT 99
[2024-03-05 19:06] VITALS: BP 131/70; PULSE 72; RESP 20; TEMP 36.6; O2SAT 100
--- NOTE | 2024-03-05 19:10 | ED.NAVMDI ---
HPI - Nausea/Vomiting/Diarrhea General Chief complaint: Nausea/Vomiting/Diarrhea Stated complaint: n/v/d, sob with exertion Time Seen by Provider: 03/05/24 19:05 History of Present Illness HPI Narrative: Patient presents here with concern that she has a Crohn's flare, she ran out of her medications in the last few days. Reporting some abdominal discomfort, nausea vomiting. Related Data Home Medications Medication Instructions Recorded Confirmed citalopram 20 mg tablet mg 12/03/23 Allergies Allergy/AdvReac Type Severity Reaction Status Date / Time morphine AdvReac Intermediate really Verified 02/16/24 03:23 bad migraines Review of Systems Review of Systems: All systems reviewed & are unremarkable except as noted in HPI and below PMFSH Past Medical History Medical History Crohn's disease Gastritis Surgical History Surgical History H/O colonoscopy Family History Family History Father , Motorcycle accident Unknown family medical history Mother COPD (chronic obstructive pulmonary disease) Smoker Social History Social History Smoking status: Former smoker Tobacco type: cigarettes Second hand tobacco smoke exposure: No Alcohol intake: former Substance use: current Substance use type: marijuana Other substance usage details: 8-9 times daily Living arrangements: with family Occupation/Education: unemployed Gender identity (if verbalized by the patient): Female Sexual Orientation (if Verbalized by the Patient): Straight or Heterosexual Exam Narrative: EXAMINATION OF ORGAN SYSTEMS/BODY AREAS: Constitutional: Vital signs per nursing GENERAL:[No acute distress, non-toxic appearing.] HEAD: Normal with no signs of head trauma. EYES: EOMI, conjunctiva normal ENT: Hearing grossly intact LUNGS: Nonlabored breathing. HEART: [Regular rate and rhythm] ABD: [Soft], [nontender to palpation] EXT: Normal range of motion SKIN: [No rashes or lesions.] NEURO: [Alert and oriented x 3. No gross focal sensory or strength deficits.] PSYCH: Normal affect Course Vital Signs Vital signs: Vital Signs Temperature 97.9 F 03/05/24 17:50 Pulse Rate 68 03/05/24 17:50 Blood Pressure 123/83 03/05/24 17:50 Pulse Oximetry 99 03/05/24 17:50 Temperature 97.9 F 03/05/24 19:06 Pulse Rate 65 03/05/24 20:05 Respiratory Rate 15 03/05/24 20:05 Blood Pressure 116/77 03/05/24 20:05 Pulse Oximetry 100 03/05/24 20:05 MDM - Nausea/Vomiting/Diarrhea MDM Narrative Medical decision making narrative: 33-year-old female with history of Crohn's presents here with concern for flare after she ran out of her medications a few days ago, she is otherwise well appearing, abdomen soft nontender, overall very benign appearing, have low concern for acute surgical emergency. She is given Zofran and fluids here and is feeling better on re-evaluation, I will put on a few days of steroids for her flare and refill her medications and have her follow-up with her GI doctor and give her return precautions. Lab Data 03/05/24 19:22 03/05/24 19:22 Labs: Lab Results 03/05/24 Range/Units 19:22 WBC 9.7 (4.5-10.0) K/mm3 RBC 4.45 (4.2-5.4) M/mm3 Hgb 13.8 (12.0-15.0) g/dL Hct 41.3 (37.0-47.0) % MCV 92.8 (80-100) fl MCH 31.0 (26-34) pg MCHC 33.4 (32-36) g/dl RDW 13.3 (11.5-14.5) % Plt Count 413 H (150-375) k/mm3 MPV 9.5 (7.4-10.4) fl Immature Gran % (Auto) 0.9 H (0-0.5) % Neut % (Auto) 66.8 (45.5-73.1) % Lymph % (Auto) 21.9 (18.3-44.2) % [place] % (Auto) 6.8 (2.6-8.5) % Eos % (Auto) 2.6 (0-4.4) % Baso % (Auto) 1.0 (0.2-1.2) % Lymph # (Auto) 2.12 (0.9-3.2) K/mm3 [place] # (Auto)
[2024-03-05] MEDS: LACTATED RINGERS 1,000 ML 999 ML IV CONT (19:22)
[2024-03-05] MEDS: ONDANSETRON INJ 4 MG/2 ML VIAL IV PUSH (19:23)
[2024-03-05 19:27] LABS: Basophils Absolute Auto 0.1 K/mm3 (0.0-0.1); Eosinophils Absolute Auto 0.3 K/mm3 (0-0.3); Eosinophils Percent Auto 2.6 % (0-4.4); Hematocrit 41.3 % (37.0-47.0); Hemoglobin 13.8 g/dL (12.0-15.0); Immature Granulocyte Absolute 0.09 K/mm3 (0.00-0.031); Immature Granulocyte Percent A 0.9 % (0-0.5); Lymphocytes Absolute Auto 2.12 K/mm3 (0.9-3.2); Lymphocytes Percent Auto 21.9 % (18.3-44.2); Mean Corpuscular HGB Conc 33.4 g/dl (32-36); Mean Corpuscular Volume 92.8 fl (80-100); Mean Platelet Volume 9.5 fl (7.4-10.4); Monocytes Absolute Auto 0.7 K/mm3 (0.1-0.6); Monocytes Percent Auto 6.8 % (2.6-8.5); Neutrophils Absolute Auto 6.5 K/mm3 (1.3-6.7); Neutrophils Percent Auto 66.8 % (45.5-73.1); Platelet Count Result 413 k/mm3 (150-375); Red Blood Count 4.45 M/mm3 (4.2-5.4); Red Cell Distribution Width 13.3 % (11.5-14.5); White Blood Count 9.7 K/mm3 (4.5-10.0)
[2024-03-05 19:39] LABS: Alanine Aminotransferase 14 U/L (6-35); Albumin Level 4.1 g/dL (3.5-5.1); Anion Gap 8 mmol/L (4-12); Aspartate Amino Transferase 30 U/L (14-36); Bilirubin,Total 0.9 mg/dL (0.2-1.3); Blood Urea Nitrogen 9 mg/dL (7-17); Calcium 8.7 mg/dL (8.4-10.2); Carbon Dioxide 28 mmol/L (22-30); Chloride 100 mmol/L (98-107); Estimated CRCL calculation 127 ml/min; Estimated Glomerular Filt Rate > 60; Glucose 81 mg/dL (65-110); Potassium 3.8 mmol/L (3.4-5.0); Sodium 136 mmol/L (137-145)
[2024-03-05 20:05] VITALS: BP 116/77; PULSE 65; RESP 15; O2SAT 100
[2024-03-05] MEDS: predniSONE 20 MG TABLET 40 MG PO (20:18)
[2024-03-05 20:41] LABS: Alkaline Phosphatase < 20 U/L (38-126)
== END 2024-03-05 20:25 | disposition home or self-care (01) ==
PROVIDERS: Emergency Provider Emergency Medicine
DX: R11.2 Nausea with vomiting, unspecified (principal); Z76.0 Encounter for issue of repeat prescription; K50.90 Crohn's disease, unspecified, without complications; Z87.891 Personal history of nicotine dependence; Z79.899 Other long term (current) drug therapy
CPT/HCPCS: 36415; 80053; 85025; 96361; 96374; 99284; J2405; J7120; J7512

== ENCOUNTER 2024-04-17 16:00 | Emergency (ER) | payer OTHER, SELFPAY ==
--- NOTE | ~2024-04-17 | CT_ITS ---
CT abdomen pelvis w con Ordering provider: Lanie Renteria PA-C History: 33 years Female with . pain, N/V/D . Comparison: December 15, 2023 Technique: CT abdomen and pelvis with IV and without oral contrast. Automated exposure control and it erative reconstruction technique were employed. The dose-length product was 1547.27 mGy-cm. 100 mL Om nipaque 350 was given IV. Findings: VISUALIZED LOWER CHEST: Normal. UPPER ABDOMINAL ORGANS: Liver: Hepatomegaly. Gallbladder: Status post cholecystectomy. Spleen: Normal. Stomach/duodenum: Normal. Pancreas: Normal. Adrenals: Normal. Kidneys: Normal. PELVIC ORGANS: The bladder is normal. Left ovarian cyst measuring 2.6 cm is noted. BOWEL AND MESENTERY: Colon: No evidence of diverticulitis. Normal appendix. Small Bowel: Normal. No obstruction. Peritoneum/mesentery: No free air or free fluid. No mesenteric lymphadenopathy. RETROPERITONEUM: Normal aorta. No retroperitoneal lymphadenopathy. MUSCULOSKELETAL: Superficial soft tissues: The superficial soft tissues are normal. Bones: Age appropriate degenerative changes of the spine. IMPRESSION: 1. Hepatomegaly. 2. No evidence of appendicitis, diverticulitis or intestinal obstruction. 3. Left ovarian cyst measuring 2.6 cm. Reviewed, dictated and finalized at location A.
[2024-04-17 16:05] VITALS: BP 116/76; PULSE 100; RESP 18; TEMP 36.4; O2SAT 100
--- NOTE | 2024-04-17 16:39 | ED.GENADULT ---
HPI - General Adult General Chief complaint: Unspecified Stated complaint: ran out of crohns meds, doesn't have PCP Time Seen by Provider: 04/17/24 16:17 Source: patient Mode of arrival: ambulatory Limitations: no limitations History of Present Illness HPI narrative: patient is a 33-year-old female who presents the ED with report of abdominal pain and wanting medication refill. Patient reports she has history of Crohn's disease and takes Amitriptyline for this. Reports she has been out of her amitriptyline since Wednesday, 04/14. She currently does not have a primary care doctor due to insurance purposes and states her medications were filled last time in the ER. She reports having worsening and upper abdominal pain, with intermittent diarrhea and vomiting over the last 2 days. She is concerned she is having a flare of her Crohns. Denies fevers, rectal bleeding, urinary complaints. patient would also like a refill of her citalopram which she takes for depression. Related Data Home Medications Medication Instructions Recorded Confirmed citalopram 20 mg tablet mg 12/03/23 Allergies Allergy/AdvReac Type Severity Reaction Status Date / Time morphine AdvReac Intermediate really Verified 04/17/24 16:02 bad migraines Review of Systems Review of Systems: All systems reviewed & are unremarkable except as noted in HPI. All systems reviewed & are unremarkable except as noted in HPI and below PMFSH Past Medical History Medical History (Updated 04/17/24 @ 18:01 by Lanie Renteria PA-C) Crohn's disease Depression Gastritis Surgical History Surgical History H/O colonoscopy Family History Family History Father , Motorcycle accident Unknown family medical history Mother COPD (chronic obstructive pulmonary disease) Smoker Social History Social History Smoking status: Former smoker Tobacco type: cigarettes Second hand tobacco smoke exposure: No Alcohol intake: former Substance use: current Substance use type: marijuana Other substance usage details: 8-9 times daily Living arrangements: with family Occupation/Education: unemployed Gender identity (if verbalized by the patient): Female Sexual Orientation (if Verbalized by the Patient): Straight or Heterosexual Exam Narrative: GENERAL: Well appearing, obese with BMI of 38.7, non-toxic, in no acute distress. HEAD: Normocephalic, atraumatic. RESPIRATORY: Airway patent, respirations nonlabored. Clear to auscultation bilaterally, no rales, rhonchi, wheezing. CARDIOVASCULAR: Regular rate and rhythm without murmurs, rubs, or gallops. ABDOMINAL: Soft, diffuse tenderness throughout upper abdomen, nondistended. Normoactive BS. MUSCULOSKELETAL: Moves all extremities. No gross deformities. SKIN: Warm, dry, normal color. NEURO: A&O X3. Speech clear. PSYCHIATRIC: Appropriate mood and affect. Normal interaction. Course Vital Signs Vital signs: Vital Signs Temperature 97.5 F L 04/17/24 16:05 Pulse Rate 100 04/17/24 16:05 Respiratory Rate 18 04/17/24 16:05 Blood Pressure 116/76 04/17/24 16:05 Pulse Oximetry 100 04/17/24 16:05 Oxygen Delivery Room Air 04/17/24 16:05 Temperature 97.5 F L 04/17/24 16:05 Pulse Rate 100 04/17/24 16:05 Respiratory Rate 18 04/17/24 16:05 Blood Pressure 116/76 04/17/24 16:05 Pulse Oximetry 100 04/17/24 16:05 Oxygen Delivery Room Air 04/17/24 16:05 Medical Decision Making MDM Narrative Medical decision making narrative: Patient presented to ED wanting refill of amitriptyline and citalopram. Takes amitriptyline for Crohn's disease. Concerned she is having a Crohn's flare with worsening pain, intermittent nausea and diarrhea over the past few days. Vital s
[2024-04-17 16:54] LABS: BEDSIDEPREGUCG Negative (Negative)
[2024-04-17 17:01] LABS: Basophils Absolute Auto 0.1 K/mm3 (0.0-0.1); Basophils Percent Auto 1.1 % (0.2-1.2); Eosinophils Absolute Auto 0.4 K/mm3 (0-0.3); Eosinophils Percent Auto 4.5 % (0-4.4); Hematocrit 42.2 % (37.0-47.0); Hemoglobin 13.9 g/dL (12.0-15.0); Immature Granulocyte Absolute 0.13 K/mm3 (0.00-0.031); Immature Granulocyte Percent A 1.3 % (0-0.5); Lymphocytes Absolute Auto 1.97 K/mm3 (0.9-3.2); Lymphocytes Percent Auto 20.3 % (18.3-44.2); Mean Corpuscular HGB Conc 32.9 g/dl (32-36); Mean Corpuscular Volume 94.2 fl (80-100); Mean Platelet Volume 9.6 fl (7.4-10.4); Monocytes Absolute Auto 0.6 K/mm3 (0.1-0.6); Monocytes Percent Auto 6.1 % (2.6-8.5); Neutrophils Absolute Auto 6.5 K/mm3 (1.3-6.7); Neutrophils Percent Auto 66.7 % (45.5-73.1); Platelet Count Result 388 k/mm3 (150-375); Red Blood Count 4.48 M/mm3 (4.2-5.4); Red Cell Distribution Width 13.5 % (11.5-14.5); White Blood Count 9.7 K/mm3 (4.5-10.0)
[2024-04-17 17:09] LABS: Add Urine Microscopic? YES; Appearance Urine Clear (Clear); Bacteria Urine None Seen /hpf; Bilirubin Urine Negative (Negative); Blood Urine 1+ (Negative); Color Urine Yellow (Yellow); Glucose Urine UA Negative (Negative); Ketones Urine Negative (Negative); Leukocyte Esterase Ur Negative LEU/UL (Negative); Nitrate Urine Negative (Negative); Non Pathogenic Casts 0-2; Protein Urine Negative (Negative); RBC Urine 0-2 /hpf (0-2); Specific Grav Ur 1.016 (1.001-1.035); Squamous Epithelial Cell Urine None Seen /hpf (Few); Urobilinogen Urine 0.2 mg/dL (<2.0); WBC Urine 0-5 /hpf (0-3)
[2024-04-17 17:17] LABS: Alanine Aminotransferase 23 U/L (6-35); Albumin Level 3.8 g/dL (3.5-5.1); Alkaline Phosphatase 25 U/L (38-126); Anion Gap 6 mmol/L (4-12); Aspartate Amino Transferase 31 U/L (14-36); Bilirubin,Total 0.2 mg/dL (0.2-1.3); Blood Urea Nitrogen 9 mg/dL (7-17); Calcium 8.6 mg/dL (8.4-10.2); Carbon Dioxide 27 mmol/L (22-30); Chloride 105 mmol/L (98-107); Estimated CRCL calculation 116 ml/min; Estimated Glomerular Filt Rate > 60; Glucose 90 mg/dL (65-110); Potassium 3.9 mmol/L (3.4-5.0); Sodium 138 mmol/L (137-145)
--- NOTE | 2024-04-17 17:22 | PC.NURSE ---
Pt pressed call light requesting IV to be removed. Pt educated that the IV is needed for a CT with contrast. Pt reluctantly cooperative in leaving IV in for imaging.
[2024-04-17 18:24] VITALS: BP 132/76; PULSE 89; RESP 17; TEMP 36.8; O2SAT 99
== END 2024-04-17 18:26 | disposition home or self-care (01) ==
PROVIDERS: Emergency Provider Physician Assistant
DX: Z76.0 Encounter for issue of repeat prescription (principal); R10.9 Unspecified abdominal pain; N83.202 Unspecified ovarian cyst, left side; K50.90 Crohn's disease, unspecified, without complications; F32.A Depression, unspecified; Z87.891 Personal history of nicotine dependence; F12.90 Cannabis use, unspecified, uncomplicated
CPT/HCPCS: 36415; 74177; 80053; 81001; 81025; 85025; 99283; Q9967

== ENCOUNTER 2024-05-21 13:47 | Emergency (ER) | payer OTHER, SELFPAY ==
[2024-05-21 13:51] VITALS: BP 126/94; PULSE 84; RESP 16; TEMP 36.4; O2SAT 99
--- NOTE | 2024-05-21 14:13 | ED.NAVMDI ---
HPI - Nausea/Vomiting/Diarrhea General Chief complaint: Nausea/Vomiting/Diarrhea Stated complaint: nausea, PMH of crohn's Time Seen by Provider: 05/21/24 14:01 Source: patient Mode of arrival: ambulatory Limitations: no limitations History of Present Illness HPI Narrative: This is a 33-year-old female with PMH of Crohn disease who presents to the ED for chief complaint of N/V over the past couple of days. Reports that she was here a month ago for similar presentation and given Zofran with relief. States that she gets these flare ups where she will get very nauseous and have vomiting. She reports that these worsened when she feels stressed out. She reports feeling extremely stressed by her youngest daughter in school right now. 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 Denies current diarrhea, GI bleeding symptoms, hematemesis. Reports some abdominal soreness from the vomiting but otherwise has not had significant abdominal pain. Denies chest pain, shortness of breath, cough, urinary symptoms. Related Data Home Medications Medication Instructions Recorded Confirmed citalopram 20 mg tablet mg 12/03/23 Allergies Allergy/AdvReac Type Severity Reaction Status Date / Time morphine AdvReac Intermediate really Verified 05/21/24 14:35 bad migraines Review of Systems Review of Systems: All systems as dictated in HPI [facility] Past Medical History Medical History (Updated 05/21/24 @ 15:43 by Adam Burns PA-C) Crohn's disease Depression Gastritis Surgical History Surgical History H/O colonoscopy Family History Family History Father , Motorcycle accident Unknown family medical history Mother COPD (chronic obstructive pulmonary disease) Smoker Social History Social History Smoking status: Former smoker Tobacco type: cigarettes Second hand tobacco smoke exposure: No Alcohol intake: former Substance use: current Substance use type: marijuana Other substance usage details: 8-9 times daily Living arrangements: with family Occupation/Education: unemployed Gender identity (if verbalized by the patient): Female Sexual Orientation (if Verbalized by the Patient): Straight or Heterosexual Exam Narrative: GENERAL: Well-appearing, well-nourished, and in no acute distress. HEAD: Normocephalic, atraumatic. EYES: PERRLA and EOMI. ENT: Nares clear, no rhinorrhea or epistaxis. Mucous membranes moist. Oropharynx without tonsillar hypertrophy exudate or other lesions. NECK: Supple. No adenopathy or masses. CHEST: No respiratory distress. Clear to auscultation. No wheezes rales or rhonchi HEART: Regular rate and rhythm. No murmur heard. Normal peripheral pulses. ABDOMEN: Soft, nontender, nondistended, normal active bowel sounds. MSK: Normal range of motion. No edema. SKIN: Warm, dry, no rash. NEURO: Alert and oriented x4. No focal deficits. PSYCH: Anxious mood. Tearful affect. Course Vital Signs Vital signs: Vital Signs Temperature 97.6 F 05/21/24 13:51 Pulse Rate 84 05/21/24 13:51 Respiratory Rate 16 05/21/24 13:51 Blood Pressure 126/94 H 05/21/24 13:51 Pulse Oximetry 99 05/21/24 13:51 Oxygen Delivery Room Air 05/21/24 13:51 Temperature 97.6 F 05/21/24 13:51 Pulse Rate 84 05/21/24 13:51 Respiratory Rate 16 05/21/24 13:51 Blood Pressure 126/94 H 05/21/24 13:51 Pulse Oximetry 99 05/21/24 13:51 Oxygen Delivery Room Air 05/21/24 13:51 MDM - Nausea/Vomiting/Diarrhea MDM Narrative Medical decision making narrative: This is a 33 yo female who presents to the ED for chief complaint of possible Crohn's flare with N/V. Vitals are normal. Exam shows no abdominal tenderness or flank tenderness. She is tearful and anxious but otherwise does not appear acutely ill. Lab work shows mild elevation of white count of 11.2. CMP unremarkable. Electrolytes normal. UA unremarkable as well. She was given fluids, antiemetics and Toradol with good relief of symptoms. She feels ready to go home on re-evaluation. Presentation consistent with flare-up of Crohn's. GI referral given Patient will be discharged in stable condition. Supportive measures discussed and return precautions given. Patient is understanding and agreeable with plan for discharge with PCP follow-up. Lab Data 05/21/24 14:28 05/21/24 14:28 Labs: Lab Results 05/21/24 05/21/24 Range/Units 14:28 14:30 WBC 11.2 H (4.5-10.0) K/mm3 RBC 4.48 (4.2-5.4) M/mm3 Hgb 14.1 (12.0-15.0) g/dL Hct 41.4 (37.0-47.0) % MCV 92.4 (80-100) fl MCH 31.5 (26-34) pg MCHC 34.1 (32-36) g/dl RDW 13.2 (11.5-14.5) % Plt Count 399 H (150-375) k/mm3 MPV 9.1 (7.4-10.4) fl Immature Gran % (Auto) 1.2 H (0-0.5) % Neut % (Auto) 75.2 H (45.5-73.1) % Lymph % (Auto) 15.2 L (18.3-44.2) % [place] % (Auto) 4.5 (2.6-8.5) % Eos % (Auto) 2.9 (0-4.4) % Baso % (Auto) 1.0 (0.2-1.2) % Lymph # (Auto) 1.70 (0.9-3.2) K/mm3 [place] # (Auto) 0.5 (0.1-0.6) K/mm3 Eos # (Auto) 0.3 (0-0.3) K/mm3 Baso # (Auto) 0.1 (0.0-0.1) K/mm3 Abs Immat Gran (auto) 0.13 H (0.00-0.031) K/mm3 Absolute Neuts (auto) 8.4 H (1.3-6.7) K/mm3 Absolute Nucleated RBC 0.000 (0.0-0.012) K/mm3 Nucleated RBC % 0.0 (0.0-0.2) % Sodium 135 L (137-145) mmol/L Potassium 4.0 (3.4-5.0) mmol/L Chloride 103 (98-107) mmol/L Carbon Dioxide 26 (22-30) mmol/L Anion Gap 6 (4-12) mmol/L BUN 8 (7-17) mg/dL Creatinine 0.70 (0.7-1.0) mg/dL Estim Creat Clear Calc 131 ml/min Estimated GFR > 60 (59 - ) Glucose 96 (65-110) mg/dL Calcium 8.6 (8.4-10.2) mg/dL Total Bilirubin 0.6 (0.2-1.3) mg/dL AST 22 (14-36) U/L ALT 18 (6-35) U/L Alkaline Phosphatase 29 L (38-126) U/L Total Protein 7.0 (6.3-8.2) g/dL Albumin 4.1 (3.5-5.1) g/dL Lipase 113 (23-300) U/L Urine Color Yellow (Yellow) Urine Appearance Clear (Clear) Urine pH 7.5 (5.0-9.0) Ur Specific [place] 1.012 (1.001-1.035) Urine Protein Negative (Negative) mg/dL Urine Glucose (UA) Negative (Negative) mg/dL Urine Ketones Negative (Negative) mg/dL Ur Blood (Man) Negative (Negative) Urine Nitrate Negative (Negative) Urine Bilirubin Negative (Negative) Urine Urobilinogen 0.2 (<2.0) mg/dL Leukocyte Esterase Rfl Trace H (Negative) FABIO/UL Urine RBC 0-2 (0-2) /hpf Urine WBC 0-5 (0-3) /hpf Ur Squamous Epith Cells Few (Few) /hpf Urine Bacteria None seen /hpf Urine Casts 0-2 POC Urine HCG, Qual Negative (Negative) Discharge Plan Discharge Clinical Impression: Nausea & vomiting Patient Disposition: Home, Self-Care Condition: Stable Instructions: Antibiotic Form Additional Instructions: Your exam and workup today are reassuring overall. Please follow-up with GI on this issue. Take Zofran as needed for nausea. Make sure that you stay well hydrated at home. If you have any new or worsening symptoms please return to the ER for further evaluation. Prescriptions: New ondansetron 4 mg tablet,disintegrating 4 mg PO Q8H PRN (Reason: nausea and vomiting) Qty: 10 0RF No Action citalopram 20 mg tablet amitriptyline 10 mg tablet 10 mg PO HS Qty: 30 0RF citalopram 20 mg tablet 20 mg PO DAILY Qty: 30 0RF ondansetron 4 mg tablet,disintegrating 4 mg PO Q8H PRN (Reason: nausea and vomiting) Qty: 30 0RF amitriptyline 10 mg tablet 10 mg PO HS Qty: 30 0RF prednisone 20 mg tablet 40 mg PO DAILY 4 Days Qty: 8 0RF ondansetron 4 mg tablet,disintegrating 4 mg PO Q8H PRN (Reason: nausea and vomiting) Qty: 10 0RF amitriptyline 10 mg tablet 10 mg PO HS Qty: 45 0RF citalopram 20 mg tablet 20 mg PO DAILY Qty: 30 0RF ondansetron 4 mg tablet,disintegrating 4 mg PO Q8H PRN (Reason: nausea and vomiting) Qty: 15 0RF amitriptyline 10 mg tablet 10 mg PO HS Qty: 20 0RF prednisone 20 mg tablet 40 mg PO DAILY 4 Days Qty: 8 0RF nitrofurantoin monohyd/m-cryst [Macrobid] 100 mg capsule 100 mg PO Q12H 5 Days Qty: 10 0RF Rx Instructions: must administer with a meal/food ondansetron 4 mg tablet,disintegrating 4 mg PO Q8H Qty: 10 0RF Follow-up/Referrals: Marciano Munson MD [Physician] - UNKNOWN,DOCTOR [Primary Care Provider] - Stand Alone Forms: Work/School Release IP Time of Disposition: 15:43
[2024-05-21 14:32] LABS: BEDSIDEPREGUCG Negative (Negative)
[2024-05-21] MEDS: LACTATED RINGERS 1,000 ML 999 ML IV CONT (14:35)
[2024-05-21] MEDS: ONDANSETRON INJ 4 MG/2 ML VIAL IV PUSH (14:35)
[2024-05-21] MEDS: KETOROLAC 15 MG/ML VIAL (*BKC) IV PUSH (14:35)
[2024-05-21 14:37] LABS: Basophils Absolute Auto 0.1 K/mm3 (0.0-0.1); Eosinophils Absolute Auto 0.3 K/mm3 (0-0.3); Eosinophils Percent Auto 2.9 % (0-4.4); Hematocrit 41.4 % (37.0-47.0); Hemoglobin 14.1 g/dL (12.0-15.0); Immature Granulocyte Absolute 0.13 K/mm3 (0.00-0.031); Immature Granulocyte Percent A 1.2 % (0-0.5); Lymphocytes Percent Auto 15.2 % (18.3-44.2); Mean Corpuscular HGB Conc 34.1 g/dl (32-36); Mean Corpuscular Hemoglobin 31.5 pg (26-34); Mean Corpuscular Volume 92.4 fl (80-100); Mean Platelet Volume 9.1 fl (7.4-10.4); Monocytes Absolute Auto 0.5 K/mm3 (0.1-0.6); Monocytes Percent Auto 4.5 % (2.6-8.5); Neutrophils Absolute Auto 8.4 K/mm3 (1.3-6.7); Neutrophils Percent Auto 75.2 % (45.5-73.1); Platelet Count Result 399 k/mm3 (150-375); Red Blood Count 4.48 M/mm3 (4.2-5.4); Red Cell Distribution Width 13.2 % (11.5-14.5); White Blood Count 11.2 K/mm3 (4.5-10.0)
[2024-05-21 14:43] LABS: Add Urine Microscopic? YES; Appearance Urine Clear (Clear); Bacteria Urine None Seen /hpf; Bilirubin Urine Negative (Negative); Blood Urine Negative (Negative); Color Urine Yellow (Yellow); Glucose Urine UA Negative (Negative); Ketones Urine Negative (Negative); Leukocyte Esterase Ur Trace LEU/UL (Negative); Nitrate Urine Negative (Negative); Non Pathogenic Casts 0-2; Protein Urine Negative (Negative); RBC Urine 0-2 /hpf (0-2); Specific Grav Ur 1.012 (1.001-1.035); Squamous Epithelial Cell Urine Few /hpf (Few); Urobilinogen Urine 0.2 mg/dL (<2.0); WBC Urine 0-5 /hpf (0-3); pH Urine 7.5 (5.0-9.0)
[2024-05-21 14:49] LABS: Alanine Aminotransferase 18 U/L (6-35); Albumin Level 4.1 g/dL (3.5-5.1); Alkaline Phosphatase 29 U/L (38-126); Anion Gap 6 mmol/L (4-12); Aspartate Amino Transferase 22 U/L (14-36); Bilirubin,Total 0.6 mg/dL (0.2-1.3); Blood Urea Nitrogen 8 mg/dL (7-17); Calcium 8.6 mg/dL (8.4-10.2); Carbon Dioxide 26 mmol/L (22-30); Chloride 103 mmol/L (98-107); Estimated CRCL calculation 131 ml/min; Estimated Glomerular Filt Rate > 60; Glucose 96 mg/dL (65-110); Lipase 113 U/L (23-300); Sodium 135 mmol/L (137-145)
--- NOTE | 2024-05-21 15:45 | PC.NURSE ---
Patient ambulated to the restroom with steady gate
== END 2024-05-21 16:00 | disposition home or self-care (01) ==
PROVIDERS: Preventive Medicine Aerospace Medicine; Emergency Provider Physician Assistant
DX: R11.2 Nausea with vomiting, unspecified (principal); K50.90 Crohn's disease, unspecified, without complications; F32.A Depression, unspecified; Z87.891 Personal history of nicotine dependence
CPT/HCPCS: 36415; 80053; 81001; 81025; 83690; 85025; 96361; 96374; 96375; 99284; J1885; J2405; J7120

== ENCOUNTER 2024-07-03 16:24 | Emergency (ER) | payer OTHER, SELFPAY ==
[2024-07-03 16:52] VITALS: BP 124/74; PULSE 80; RESP 16; TEMP 36.6; O2SAT 100
[2024-07-03 17:09] LABS: EDUAAPPEAR Clear; EDUABILI Negative (Negative); EDUABLOOD 2+ (Negative); EDUACOLOR1 Yellow; EDUAGLUCOSE Negative (Negative); EDUAKETONE Negative (Negative); EDUALEUKO Negative (Negative); EDUANITRATE Negative (Negative); EDUAPROTEIN Negative (Negative); EDUAUROBILI 0.2
--- NOTE | 2024-07-03 17:55 | ED.FEMALEGU ---
HPI - Female Genitourinary General Chief complaint: Urogenital-Female Stated complaint: UTI Time Seen by Provider: 07/03/24 17:55 Source: patient, RN notes reviewed and old records reviewed Mode of arrival: ambulatory Limitations: no limitations History of Present Illness HPI Narrative: Patient presents with complaints of urinary frequency and burning. She was very recently treated for UTI with Macrobid, says that she felt better, until a couple days after finishing her medication. Then she states that she began to feel the frequency and burning return. She denies any fever, chills, sweats. She denies any nausea or vomiting. She denies any back pain. She voices no other concerns or complaints at this time. Related Data Home Medications Medication Instructions Recorded Confirmed citalopram 20 mg tablet 20 mg DIRECTED 12/03/23 07/03/24 Allergies Allergy/AdvReac Type Severity Reaction Status Date / Time morphine AdvReac Intermediate really Verified 05/21/24 14:35 bad migraines Review of Systems Review of Systems: All systems reviewed & are unremarkable except as noted in HPI and below Constitutional: Constitutional: Reports no additional constitutional complaints ENT: Reports system reviewed and no additional complaints, except as documented Cardiovascular: Cardiovascular: Reports no additional cardiovascular complaints Respiratory: Respiratory: Reports no additional respiratory complaints Gastrointestinal: Gastrointestinal: Reports no additional gastrointestinal complaints Genitourinary: Genitourinary: Reports no additional female genitourinary complaints, Reports as per HPI, Reports dysuria and Reports urinary urgency [facility] Past Medical History Medical History (Updated 07/03/24 @ 17:59 by Melia Sahu APRN) Crohn's disease Depression Gastritis Surgical History Surgical History H/O colonoscopy Family History Family History Father , Motorcycle accident Unknown family medical history Mother COPD (chronic obstructive pulmonary disease) Smoker Social History Social History Smoking status: Former smoker Tobacco type: cigarettes Second hand tobacco smoke exposure: No Alcohol intake: former Substance use: current Substance use type: marijuana Other substance usage details: 8-9 times daily Living arrangements: with family Occupation/Education: unemployed Gender identity (if verbalized by the patient): Female Sexual Orientation (if Verbalized by the Patient): Straight or Heterosexual Comments At the time of my signature, I reviewed and agree with the nursing past medical, surgical, social, and family history. There is no relevant family history pertinent to the patient complaint. Exam Const: General: cooperative, no acute distress, alert and awake Orientation/consciousness: oriented to person, oriented to place and oriented to time HENMT: Head: normal to inspection Resp: Effort & Inspection: normal respiratory effort and able to speak in complete sentences Auscultation: clear to auscultation bilaterally, no crackles, no rales, no rhonchi and no wheezes Cardio: Palpation: normal PMI Rate: regular rate Rhythm: regular rhythm Heart sounds: S1 normal heart sound present and S2 normal heart sound present Back/Spine/Pelvis: Back: no CVA tenderness Neuro: General: oriented to person, oriented to place and oriented to time Cranial nerves: Yes CN's II-XII intact bilaterally Psych: Appearance: grossly normal Thought process: Normal thought process present Insight: Good insight present (Psych) Judgement: Good judgement present (Psych) Course Course Level of Care: Express Care Visit Vital Signs Vital signs: Vital Signs Temperature 97.8 F 07/03/24 16:52 Pulse Rate 80 07/03/24 16:52 Respiratory Rate 16 07/03/24 16:52 Blood Pressure 124/74 07/03/24 16:52 Pulse Oximetry 100 07/03/24 16:52 Oxygen Delivery Room Air 07/03/24 16:52 Temperature 97.8 F 07/03/24 16:52 Pulse Rate 80 07/03/24 16:52 Respiratory Rate 16 07/03/24 16:52 Blood Pressure 124/74 07/03/24 16:52 Pulse Oximetry 100 07/03/24 16:52 Oxygen Delivery Room Air 07/03/24 16:52 Reviewed MDM - Female Genitourinary MDM Narrative Medical decision making narrative: UA concerning for UTI, treat accordingly. Culture pending. Lab Data Labs: Lab Results 07/03/24 Range/Units 17:05 POC Urine Color Yellow POC Urine Clarity Clear POC Urine pH 7.0 POC Ur Specif [place] 1.020 POC Urine Protein Negative (Negative) POC Ur Glucose (UA) Negative (Negative) POC Urine Ketones Negative (Negative) POC Urine Blood 2+ (Negative) POC Urine Nitrite Negative (Negative) POC Urine Bilirubin Negative (Negative) POC Urine Urobilinogen 0.2 POC U Leukocyte Esteras Negative (Negative) Discharge Plan Discharge Clinical Impression: Urinary tract infection Qualifiers: Urinary tract infection type: site unspecified Hematuria presence: with hematuria Qualified Code(s): N39.0 - Urinary tract infection, site not specified Patient Disposition: Home, Self-Care Condition: Stable Instructions: Antibiotic Form, Urinary Tract Infection in Women (ED) Additional Instructions: Take medications as prescribed. Follow-up with primary care provider. Emergency department for new or worse symptoms Patient Language: Botswanan Prescriptions: New nitrofurantoin monohyd/m-cryst [Macrobid] 100 mg capsule 100 mg PO Q12H 7 Days Qty: 14 0RF Rx Instructions: must administer with a meal/food No Action citalopram 20 mg tablet 20 mg DIRECTED amitriptyline 10 mg tablet 10 mg PO HS Qty: 30 0RF ondansetron 4 mg tablet,disintegrating 4 mg PO Q8H PRN (Reason: nausea and vomiting) Qty: 30 0RF Follow-up/Referrals: PHYSICIAN,STONE SETTER [Primary Care Provider] - Time of Disposition: 18:00
== END 2024-07-03 17:55 | disposition left against medical advice (07) ==
PROVIDERS: Emergency Provider Nurse Practitioner Family
DX: R35.0 Frequency of micturition (principal)
CPT/HCPCS: 81003; 87086; 99199

== ENCOUNTER 2024-08-17 16:25 | Emergency (ER) | payer OTHER, SELFPAY ==
[2024-08-17 16:39] VITALS: BP 136/63; PULSE 81; RESP 20; TEMP 36.7; O2SAT 99
--- NOTE | 2024-08-17 18:48 | PC.NURSE ---
Attempted to call pt to room, no answer.
== END 2024-08-17 22:39 | disposition left against medical advice (07) ==
LOC: ANHED 20:00
DX: K08.89 Other specified disorders of teeth and supporting structures (principal)
CPT/HCPCS: 99199

== ENCOUNTER 2024-11-15 15:23 | Emergency (ER) | payer OTHER, SELFPAY ==
--- NOTE | ~2024-11-15 | XR_ITS ---
CHEST RADIOGRAPH, PA AND LATERAL CLINICAL HISTORY: n/v . COMPARISON: None available TECHNIQUE: PA and lateral views of the chest. FINDINGS The cardiomediastinal silhouette is unremarkable. The lungs are clear. Visualized osseous structures and soft tissues are unremarkable. IMPRESSION: No focal infiltrate or effusion. Reviewed, dictated and finalized at location A.
[2024-11-15 15:23] VITALS: BP 130/88; PULSE 78; RESP 18; TEMP 36.5; O2SAT 98
[2024-11-15 17:08] VITALS: BP 120/80; PULSE 80; RESP 18; O2SAT 99
--- OUTSIDE RECORDS SUMMARY | 2024-11-15 17:19 | XMS_ITS | Clinical Summary ---
Author Organization [facility] Julio Dorsey Address [address] [place] [address] Care Team Providers Care Valving Machine Operator Name Role Phone Norberto Davis MD Primary Care Provider [phone] Allergies Active Allergy Reactions Criticality Noted Date Comments Morphine Nausea and Vomiting,Headache Low 021 Medications amitriptyline (ELAVIL) 10 mg tablet Take 10 mg by mouth daily at bedtime. Active citalopram (CeleXA) 20 mg tablet Take 20 mg by mouth daily at bedtime. Active Active Problems Problem Noted Date Diagnosed Date Leukocytosis (leucocytosis) 03/05/2021 Reactive thrombocytosis 03/05/2021 Family History Medical History Relation Name Comments Heart Disease Father Relation Name Status Comments Brother Alive Daughter 1 Alive Daughter 2 Alive Father Mother Alive Sister Alive Social History Tobacco Use Types Packs/Day Years Used Date Smoking Tobacco: Never Smokeless Tobacco: Never Alcohol Use Standard Drinks/Week Comments Yes 0 (1 standard drink = 0.6 oz pur e alcohol) Comments No Sex and Gender Information Value Date Recorded Sex Assigned at Not on file Legal Sex Female 9:45 AM CDT Gender Identity Not on file Sexual Orientation Not on file Last Filed Vital Signs Vital Sign Reading Time Taken Comments Blood Pressure 117/66 03/05/2021 4:00 PM CDT Pulse 96 03/05/2021 4:00 PM CDT Temperature 37.1 C (98.7 F) 03/05/2021 4:00 PM CDT Respiratory Rate - - Oxygen Saturation 97% 03/05/2021 4:00 PM CDT Inhaled Oxygen Concentration - - Weight 120.9 kg (266 lb 9.6 oz) 03/05/2021 4:00 PM CDT Height 172.7 cm (5' 8 ) 03/05/2021 4:00 PM CDT Body Mass Index 40.54 03/05/2021 4:00 PM CDT Plan of Treatment Health Maintenance Due Date Last Done Comments DTAP/TDAP/TD VACCINES (1 - Tdap) 2009 HEPATITIS B VACCINES (1 of 3 - 19+ 3-dose series) 2009 HPV/Cotest (21-29) 2011 CERVICAL CANCER SCREENING 2020 HPV/Cotest (30-65) 2020 PAP SMEAR 2020 INFLUENZA VACCINE (#1) 2024 HPV VACCINES Aged Out No longer eligi ble based on patient's age to complete this topic [place] [address] [place] [address] [employer] [place] Care Teams Valving Machine Operator Relationship Specialty Start Date End Date Norberto Davis MD [address] [place] [id number] PCP - General Emergency Medicine 03/05/21
--- OUTSIDE RECORDS SUMMARY | 2024-11-15 17:19 | XMS_ITS | Referral Summary ---
Author Organization [facility] Address [address] [place] [address] Care Team Providers Care Supervisor Area Name Role Phone Norberto Davis MD Primary Care Provider [phone] Allergies Active Allergy Reactions Criticality Noted Date Comments Morphine Headache,Nausea And Vomiting Low 014 Headache Medications citalopram (CeleXA) 20 mg tablet Take 20 mg by mouth daily Active ergocalciferol (VITAMIN D) 50,000 unit capsule Take 1 capsule (50,000 Units total) by mouth once a week 4 capsule 2 08/28/19 22 Active Additional Information Patient not taking.Reported on 05/22/2022 ibuprofen (ADVIL,MOTRIN) 600 mg tablet Take 1 tablet (600 mg total) by mouth every 6 (six) hours as needed for headaches 20 tablet 05/26/20 22 Active metoclopramide (REGLAN) 10 mg tablet Take 1 tablet (10 mg total) by mouth every 6 (six) hours as needed (migraine) 20 tablet 05/26/20 22 Active diphenhydrAMINE 25 mg capsule Take 2 tablet/capsule (50 mg total) by mouth every 6 (six) hours as needed (migraine) 40 capsule 05/26/20 22 Active amitriptyline (ELAVIL) 10 mg tablet Take 1 tablet (10 mg total) by mouth daily 30 tablet 2 02/04/20 23 Active ondansetron ODT (ZOFRAN-ODT) 4 mg disintegrating tablet Take 1 tablet (4 mg total) by mouth every 8 (eight) hours as needed for nausea or vomiting 20 tablet 10/23/19 24 Active dicyclomine (BENTYL) 10 mg capsuleIndications :Abdominal Pain with Cramps,Irritable Bowel Syndrome Take 1 capsule (10 mg total) by mouth 4 (four) times a day before meals and nightly for 20 doses 20 capsule 10/23/19 24 Active famotidine (PEPCID) 20 mg tablet Take 1 tablet (20 mg total) by mouth 2 (two) times a day 60 tablet 10/23/19 24 Active Active Problems Problem Noted Date Diagnosed Date Crohn's disease without complication 08/21/2021 Overview (02/14/2024): Year of diagnosis: 2013. Year symptoms began: 2011. Phenotype: Inflammatory (B1) without perianal disease. Distribution: ileal (L1) without upper GI disease (L4). Extraintestinal manifestations: none. Complications: ?RLS. Prior treatments: mesalamine. Current treatment: none. Prior surgeries: none. Endoscopies: colonoscopy 05/2022 unable to visualize d/t poor prep. Panendoscopy 08/2013: Severe gastritis, ileitis; negative biopsies Capsule endoscope 09/2013: small bowel erosions. EUS - possible pancreas divisum with biliary dlation Colonoscopy 03/2016: Normal colon, 80% mucosa viewed, negative biopsies Colonoscopy 11/2019:- benign serrated polyps EGD: 12/2019 - gastric erosions, path negative. Imaging: MRE 05/2022 showed no evidence of active or chronic bowel inflammation. CTE 01/2014 negative. MRCP 12/2013 pancreatic divisum, CBD 4mm. CTAP 07/2018 possible colitis. Assessment & Plan (08/21/2021 9:21 PM YOUTH PASTOR): 30 year old with ileal Crohn's disease with likely upper GI involvement who is biologics naive. Unfortunately, she has never been truly treated for CD. We will start by getting an MRE, and a panendoscopy to confirm the diagnosis and assess current disease status. We discuss therapeutic options including Stelera, and antiTNF. Given that she is biologic naive, Stelera will be the preferred choice. We will schedule followup based on findings of the above studies. Nausea and vomiting 08/21/2021 Overview (08/21/2021): Added automatically from request for surgery [id number] Social History Tobacco Use Types Packs/Day Years Used Date Smoking Tobacco: Every Day Smokeless Tobacco: Never Tobacco Cessation:Ready to Q uit: Not Asked; Counseling Given: Not Answered AUDIT-C Answer Date Recorded Q1: How often do you have a drink containing alc ohol? Monthly or less 06/23/2022 Q2: How many drinks containi ng alcohol do you have on a typical day when you are drinking? 3 or 4 06/23/2022 Q3: How often do you have si x or more drinks on one occasion? Never 06/23/2022 Personal Safety Answer Date Recorded Have you ever been in or are you currently in a harmful physical or emotional relationship or is someone making you feel afraid or unsafe? Denies 10/23/2023 Comments No Sex and Gender Information Value Date Recorded Sex Assigned at Not on file Legal Sex Female 5:43 PM YOUTH PASTOR Gender Identity Female 10/16/2021 6:46 PM CDT Sexual Orientation Not on file Last Filed Vital Signs Vital Sign Reading Time Taken Comments Blood Pressure 125/80 10/23/2023 7:17 PM CDT Pulse 70 10/23/2023 7:17 PM CDT Temperature 36.8 C (98.2 F) 10/23/2023 4:13 PM CDT Respiratory Rate 18 10/23/2023 7:17 PM CDT Oxygen Saturation 99% 10/23/2023 7:17 PM CDT Inhaled Oxygen Concentration - - Weight 106.6 kg (235 lb 0.2 oz) 10/23/2023 4:13 PM CDT Height 172.7 cm (5' 8 ) 06/23/2022 3:01 PM YOUTH PASTOR Body Mass Index 35.73 06/23/2022 3:01 PM YOUTH PASTOR Plan of Treatment Not on file Insurance [facility] Advance Directives For more information, please contact: [phone] * Full Code (Latest Code Status on File) Date Activated Date Inactivated Comments 06/23/2022 2:54 PM 06/23/2022 9:48 PM Care Teams Supervisor Area Relationship Specialty Start Date End Date Norberto Davis MD [address] [address] PCP - General Emergency Medicine 11/11/23
--- OUTSIDE RECORDS SUMMARY | 2024-11-15 17:19 | XMS_ITS | Data Portability ---
Author Organization [facility], [facility] Address [address] [place] [address] Assessment No assessment recorded. Plan of Treatment Reminders Order Date Submit Date Provider Last Modified By Organization Details Last Modified Time Details Appointments None recorded. Lab pap, LB 2022 023 [facility], [address] [place], [address], 3 15:40:47 unlisted lab - HPV plus CT/GC/trich 2022 023 [facility], [address] [place] [address], [address], 3 13:05:03 Referral None recorded. Procedures removal, implantable contracepti ve (PROC) 2021 022 [email or web address] Not available 10:39:16 Surgeries None recorded. Imaging None recorded. Medication Orders ibuprofen 800 mg tablet 2022 023 [facility] #[id number], [address], [place], [id number], 3 11:56:04 FE 08/14 (28) 1 mg-20 mcg (21)/75 mg (7) tablet 2021 022 [facility] #[id number], [address] [facility], [place], [place], [id number], 3 11:44:55 Patient TargetsNo targets recorded. Patient Instructions Encounter Date Encounter Id Patient Instructions Last Modified By Organization Details Last Modified Time 04/23/2022 [id number] learning about control [email or web address] Not available 04/23/2022 13:15:46 preconceptual counseling [email or web address] Not available 04/23/2022 13:15:46 11/17/2022 [id number] Patient Health Questionnaire-9* [email or web address] Not available 11/30/2022 14:20:43 learning about dietary guidelines [email or web address] Not available 11/17/2022 11:55:56 eating healthy foods: care instructions [email or web address] Not available 11/17/2022 11:55:56 abuse/domestic violence education [email or web address] Not available 11/17/2022 11:55:56 weight managemen t education [email or web address] Not available 11/17/2022 11:55:57 learning about healthy weight [email or web address] Not available 11/17/2022 11:55:56 body mass index: care instructions [email or web address] Not available 11/17/2022 11:55:56 learning about control [email or web address] Not available 11/17/2022 11:55:56 Reason for Referral None Reported. Results Created Date Observation Date Name Description Value Unit Range Abnormal Flag Note LastModifiedBy Organization Detail LastModifiedTime 11/18/1911/19/[address]/GC /TRIC H HPV high risk Negati ve negati ve normal The HPV High Risk assay is inten ded for use as co-te sting with cytol ogy and not as a subst itute for regul ar cervi gisel cytol ogy scree kieran. This assay is not inten ded for use as a scree kieran devic e for women under age 30 with raj l cervi gisel cytol ogy. Not Available [facility] [address] [place], [address], 11/19/2022 13:05:03 11/18/1911/19/[address]/GC /TRIC H trichomonas vaginalis TRICH POS negati ve abnormal Not Available [facility] [address] [place], [address], 11/19/2022 13:05:03 11/18/19 11/19/[address]/GC /TRIC H chlamydia trachomatis CT neg negati ve normal This repor t is inten ded for us in clini gisel monit oring and manag ement of patie nts. It is not inten ded for use in medic al- gal appli catio n. Not Available [address], [address], 11/19/2022 13:05:03 11/18/19 23 11/19/[address]/GC /TRIC H neisseria gonorrhoeae GC neg negati ve normal This repor t is inten ded for us in clini gisel monit oring and manag ement of patie nts. It is not inten ded for use in medic al- gal appli catio n. Not Available [facility] [address] [place], [address], 11/19/2022 13:05:03 11/18/19 23 11/24/2022 THINP REP TIS PAP clinical information: normal None given Not Available [employer] [address] [address] [place], [address], 11/24/2022 15:40:47 11/18/19 23 11/24/2022 THINP REP TIS PAP LMP: normal NONE GIVEN Not Available [facility] [address] [place], [address], 11/24/2022 15:40:47 11/18/19 23 11/24/2022 THINP REP TIS PAP prev. Pap: normal NONE GIVEN Not Available [employer] [facility] [address] [place], [address], 11/24/2022 15:40:47 11/18/19 23 11/24/2022 THINP REP TIS PAP prev. BX: normal NONE GIVEN Not Available [employer] [address] [address] [place], [address], 11/24/2022 15:40:47 11/18/19 23 11/24/2022 THINP REP TIS PAP source: normal Cervi x Not Available [address] [address] [place], [address], 11/24/2022 15:40:47 11/18/19 23 11/24/2022 THINP REP TIS PAP statement of adequacy: normal Satis facto ry for evalu ation . Endoc ervic al/tr ansfo rmati on zone compo nent prese nt. Age and/o r menst rual statu s not provi ded Not Available [address] [address] [place], [address], 11/24/2022 15:40:47 11/18/19 23 11/24/2022 THINP REP TIS PAP interpretati on/result: normal Negat neeta for intra epith elial lesio n or malig rupinder . Not Available [address] [address] [place], [address], 11/24/2022 15:40:47 11/18/19 23 11/24/2022 THINP REP TIS PAP comment: normal This Pap test has been evalu ated with compu ter samara jermaine techn ology . Not Available [address] [address] [place], [address], 11/24/2022 15:40:47 11/18/19 23 11/24/2022 THINP REP TIS PAP cytotechnolo gist: normal JAF, CT( CP) CT Scree kieran Locat ion: [address] [address] [place] [address] Not Available [address] [address] [place], [address], 11/24/2022 15:40:47 11/18/19 23 11/24/2022 THINP REP TIS PAP comment EXPLA NATOR Y NOTE: The Pap is a scree kieran test for cervi gisel cance r. It is not a diagn ostic test and is subje ct to false negat neeta and false posit neeta resul ts. It is most relia ble when a satis facto ry sampl e, regul edgar obtai conor, is submi tted with relev ant clini gisel findi ngs and histo ry, and when the Pap resul t is evalu ated along with histo bharathi and curre nt clini gisel infor matio n. Not Available [facility] [address], [place], [address], 11/24/2022 15:40:47 Result Notes None recorded. Procedures Surgical History Date Name Laterality Status Provider Name and Address Organization Details Recorded Time 2 Nexplanon Removal completed Alicia BatistaShubham , [facility] [address] [facility], [place], [address], [facility] IV 04/23/2022 15:57:01 9 Date of Last Pap Smear completed [facility] IV 04/23/2022 12:40:36 Colonoscopy completed [facility] IV 11/17/2022 11:30:51 Gall bladder completed [facility] IV 11/17/2022 11:30:51 Imaging Results None recorded. Procedure Notes None recorded. Medical Equipment None Reported. Allergies Allergen ID Allergen Name Allergen Category Reaction Reaction Severity Criticality Documentation Date Start Date Code Code System Note Provider Name and Address Organization Details Recorded Time 817638 morphine medicatio n Not available Not available Not available 11/17/2022 7052 RxNorm Not Available Not Available Not Available Medications Name Sig Start Date Stop Date Status Note LastModified by Organization Details LastModified Time cyclobenzap rine 10 mg tablet TAKE 1 TABLET BY MOUTH EVERY 8 HOURS FOR 7 DAYS NEEDED FOR MUSCLE SPASM 11/17 completed Not Available Not Available Not Available amoxicillin 500 mg capsule TAKE 1 CAPSULE BY MOUTH TWICE DAILY FOR 10 DAYS active Not Available Not Available No t Available prednisone 10 mg tablet TAKE 3 TABLETS BY MOUTH DAILY FOR 7 DAYS THEN TAKE 2 TABLETS BY MOUTH DAILY FOR 7 DAYS THEN TAKE 1 TABLET BY MOUTH DAILY FOR 7 DAYS DIRECTED 11/17 completed Not Available Not Available Not Available citalopram 40 mg tablet TAKE 1 TABLET BY MOUTH EVERY DAY active Not Available Not Available No t Available ibuprofen 800 mg tablet TAKE 1 TABLET BY MOUTH THREE TIMES DAILY active Not Available Not Available No t Available citalopram 10 mg tablet TAKE 1 TABLET BY MOUTH EVERY DAY active Not Available Not Available No t Available ondansetron HCl 4 mg tablet active Not Available Not Available Not Available metronidazo le 500 mg tablet Take 1 tablet every 12 hours by oral route for 7 days. active Not Available Not Available No t Available citalopram 20 mg tablet TAKE 1 TABLET BY MOUTH EVERY DAY 11/17 completed Not Available Not Available Not Available dicyclomine 20 mg tablet 11/17 completed Not Available Not Available Not Available amitriptyli ne 10 mg tablet TAKE 1 TABLET BY MOUTH EVERY DAILY AT BEDTIME active Not Available Not Available No t Available Banophen 25 mg capsule 11/17 completed Not Available Not Available Not Available ergocalcife rol (vitamin D2) 1,250 mcg (50,000 unit) capsule TAKE 1 CAPSULE BY MOUTH 1 TIME A WEEK 11/17 completed Not Available Not Available Not Available ibuprofen 600 mg tablet 11/17 completed Not Available Not Available Not Available methylpredn isolone 4 mg tablets in a dose pack FOLLOW PACKAGE DIRECTION S active Not Available Not Available No t Available albuterol sulfate HFA 90 mcg/actuati on aerosol inhaler INHALE 2 PUFFS BY MOUTH FOUR TIMES DAILY NEEDED FOR SHORTNESS OF BREATH OR WHEEZING active Not Available Not Available No t Available ondansetron 4 mg disintegrat ing tablet DISSOLVE 1 TABLET ON THE TONGUE EVERY 4 TO 6 HOURS NEEDED FOR NAUSEA active Not Available Not Available No t Available naproxen 500 mg tablet TAKE 1 TABLET BY MOUTH TWICE DAILY FOR 7 DAYS NEEDED FOR PAIN 11/17 completed Not Available Not Available Not Available metoclopram belen 10 mg tablet 11/17 completed Not Available Not Available Not Available Bl[facility] Fe 08/14 (28) 1 mg-20 mcg (21)/75 mg (7) tablet TAKE 1 TABLET BY MOUTH EVERY DAY 11/17 completed Not Available Not Available Not Available Vitals Date Recorded Body height Body mass index (BMI) Body weight Body temperature Systolic blood pressure Diastolic blood pressure Provider Name and Address Organization Details Last Updated DateTime 2 172.72 cm 37.6 kg/m2 790093. 32 g 97 [degF] 110 mm[Hg] 70 mm[Hg] [facility] IV 2 12:49:42 Date Recorded Body height Body mass index (BMI) Body weight Body temperature Systolic blood pressure Diastolic blood pressure Provider Name and Address Organization Details Last Updated DateTime 3 172.72 cm 34.6 kg/m2 029182. 9 g 97 [degF] 120 mm[Hg] 70 mm[Hg] [facility] IV 3 11:44:15 Social History Question Answer Notes LastModified by Organizat ion Details LastModified Time Tobacco Smoking Status Former Smoker Ori tracy [facility] IV 04/23/2022 12:44:04 What Is Your Level Of Alcohol Consumption? Occasional Information not available 04/23/2022 How Many Times Per Week Do You Consume Alcohol? 1-2 Times Per Week Information not available 04/23/2022 How Many Years Have You Consumed Alcohol? 14 Information not available 11/17/2022 Are You Blind Or Do You Have Difficulty Seeing? No Information not available 04/23/2022 Are You Currently Employed? Yes Information not available 04/23/2022 Are You Deaf Or Do You Have Serious Difficulty Hearing? No Information not available 04/23/2022 What Type Of Diet Are You Following? REGULAR Information not available 04/23/2022 Do You Or Have You Ever Used E-cigarettes Or Vape? 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 1-5yearssincel astcigarette Information not available 04/23/2022 How Many Children Do You Have? 2 Information not available 11/17/2022 What Is Your Relationship Status? Single Information not available 04/23/2022 Are You Sexually Active? Yes Information not available 04/23/2022 At What Age Did You Start Smoking Tobacco? 18 Information not available 11/17/2022 How Much Tobacco Do You Smoke? 1 PPW Information not available 11/17/2022 What Types Of Sporting Activities Do You Participate In? Walk Information not available 04/23/2022 Do You Use Any Illicit Or Recreational Drugs? No Information not available 04/23/2022 How Many Years Have You Smoked Tobacco? 10 Information not available 11/17/2022 Do You Or Have You Ever Used Any Other Forms Of Tobacco Or Nicotine? No Information not available 04/23/2022 Sex: Unknown Functional Status Question Answer Note LastModified by Organizat ion Details LastModified Time What is your exercise level? Occasional Information not available 04/23/2022 Mental Status None recorded. Family History Relationship Description Onset Age of this Age Resolved Age Notes LastModified by Organization Details LastModified Time Mother Irritable bowel syndrome Not available 2022 11:30:31 Notes:mother /IBS issue Medical History Condition Response Crohn's Disease Y Gynecological History Statement/Question Response Flow Heavy Date of LMP 11/01/2022 Date of Last Pap Smear 07/26/2018 Duration of Flow (days) 5 Current Control Method None Age at Menarche 12 Obstetrics History GPAL:G 0 P 2 0 0 2 Type Value Full Term 2 Living 2 Past Encounters Encounter ID Performer Location Encounter Start Date Encounter Closed Date Diagnosis/Indication Diagnosis SNOMED-CT Code Diagnosis ICD10 Code Diagnosis Note [id number] Alicia BatistaHayleyLeo is[facility] [address] [place] [address] 04/23/2022 12:25:49 04/23/2022 16:31:32 Contraception care 474975511 Z30.40 Surveillan ce of contraception 185635821 Z30.40 [id number] Alicia Roman is, [facility] [address] [place] [address] 11/17/2022 10:43:50 11/17/2022 12:24:32 Gynecologic examination 34699709 Z01.419 Depression screening 171 221759 Z13.31 Dietary ma nagement surveillance 287412425 Z71.3 Screening for malignant neoplasm of cervix 965072817 Z12.4 Surveillan ce of contraception 797376479 Z30.40 Contracept ion care education 098791916 Z30.09 Diabetes m ellitus screening 739088922 Z13.1 Dysmenorrhea 052197710 N 94.6 Health Concerns Section Related Observation LastModified by Organization Detai ls LastModified Time None Recorded Concern Status LastModified by Organization Details LastModified Time None Recorded Advance Directives Directive None Recorded Payers Encounter Date Sequence Insurance Name Policy Number Policy Gray Covered Member ID Gray Member ID Guarantor Name 04/23/2022 1 [facility] (MEDICAID HMO) [id number] 11/17/2022 1 [facility] (MEDICAID HMO) [id number] [facility] [id number] [employer] Notes Date Note Type Note Provider Name and Address Organization Details Recorded Time 04/23/2022 text/html Patient is here to get nexplanon nexplanon removed Alicia Matute CNM [facility] [place], [address], [facility] [employer] 04/23/2022 16:00:23 11/17/2022 text/html Annual GYNReport ed bypatient.History: Patient states when she has her period she had real bad pelvic pains and during intercourse Menstrual cycle:Normal menses Urinary symptoms:No hematuria Vulva:No genital lesion Vagina:Normal vaginal discharge Breast:No breast pain; No breast lump Current Contraception:Bertie gamous relationship Sexual complaints:No pain during intercourse Menopausal Symptoms:No menopausal symptoms Psychological symptoms:Depressio n Patient is here for annual exam Alicia Matute CNM [facility] [place], [address], [facility] [employer] IV 11/17/2022 11:56:29 OBGyn Episode Ob Episode Information Episode Created Date Number of Fetuses Patient Bloodtype Patient rh Status Prepregnancy Weight lbs Domestic Partner Domestic Partner Phone Father Name Verification Engineer Status 11/18/19 23 1 CLOSED Fetus Data First Name Last Name Admitted to NICU Weight (g) Sex Living Outcome Pediatric Complications Fetus ID Race Codes Race Delivery Type 3543.46 [id number] Full Term [id number] Kraig Calculation Initial Kraig Date Initial Exam Date Initial Exam Provider Initial Ultrasound Date Last Menstrual Period Date Ultra Sound Weeks Gestation 0 Eighteen To Twenty Week Kraig Update Ultra Sound Date Fundal Height At Umbil Quickening Date Ultra Sound Latest Weeks Gestation Final Kraig Confirmed By Final Kraig Confirmed Date Final Kraig Date Ultra Sound Latest Days Gestation 0 0 Menstrual History Last Menstrual Date Menses Monthly On Bcp Conception Prior Menses Frequency Hcg Plus Date Menarche Onset Age Delivery Information Delivery Date Delivery Type Labor Anesthesia Weeks Gestation Incision Type Labor Labor Length Hrs Delivered By Post Complications Tubal Sterilization Discharge Date Comments 1 Discharge Information Feeding Method Contraceptive Method Maternal HG B and HCT Levels Ob Episode Information Episode Created Date Number of Fetuses Patient Bloodtype Patient rh Status Prepregnancy Weight lbs Domestic Partner Domestic Partner Phone Father Name Verification Engineer Status 11/18/19 23 1 CLOSED Fetus Data First Name Last Name Admitted to NICU Weight (g) Sex Living Outcome Pediatric Complications Fetus ID Race Codes Race Delivery Type 3430.06 [id number] Full Term [id number] Kraig Calculation Initial Kraig Date Initial Exam Date Initial Exam Provider Initial Ultrasound Date Last Menstrual Period Date Ultra Sound Weeks Gestation 0 Eighteen To Twenty Week Kraig Update Ultra Sound Date Fundal Height At Umbil Quickening Date Ultra Sound Latest Weeks Gestation Final Kraig Confirmed By Final Kraig Confirmed Date Final Kraig Date Ultra Sound Latest Days Gestation 0 0 Menstrual History Last Menstrual Date Menses Monthly On Bcp Conception Prior Menses Frequency Hcg Plus Date Menarche Onset Age Delivery Information Delivery Date Delivery Type Labor Anesthesia Weeks Gestation Incision Type Labor Labor Length Hrs Delivered By Post Complications Tubal Sterilization Discharge Date Comments 8 Discharge Information Feeding Method Contraceptive Method Maternal HG B and HCT Levels
--- OUTSIDE RECORDS SUMMARY | 2024-11-15 17:19 | XMS_ITS | Clinical Summary ---
Author Organization [facility] Address [address] [place] [address] Care Team Providers Care Stone Paver Name Role Phone Norberto Davis MD Primary Care Provider [phone] Allergies Active Allergy Reactions Criticality Noted Date [...] colitis. Assessment & Plan (08/21/2021 9:21 PM GOLD NIB GRINDER): 30 year old with ileal Crohn's disease [...] (08/21/2021): Added automatically from request for surgery [id number] Surgical History Surgery Date Site/Laterality Comments CHOLECYSTECTOMY Medical History Medical History Date Comments Crohn's disease (HCC) Family History Medical History Relation Name Comments Heart disease Father Inflammatory bowel disease Mother Relation Name Status Comments Father Mother Social History Tobacco Use Types Packs/Day Years [...] on file Legal Sex Female 5:43 PM GOLD NIB GRINDER Gender Identity Female 10/16/2021 6:46 PM CDT Sexual Orientation Not on file Obstetrics History Last Filed Vital Signs Vital Sign Reading [...] cm (5' 8 ) 06/23/2022 3:01 PM GOLD NIB GRINDER Body Mass Index 35.73 06/23/2022 3:01 PM GOLD NIB GRINDER Plan of Treatment Health Maintenance Due Date Last Done Comments Cervical Cancer Screening 1990 Depression Screening 1990 Hepatitis C Screening 1990 Varicella Vaccines (1 of 2 - 13+ 2-dose series) 2003 Hepatitis B Screening 2008 Regular Well Visit/Exam 18-64 2008 Pneumococcal vaccine <65 (1 of 2 - PCV) 2009 DTaP/Tdap/Td Vaccine (2 - Td or Tdap) 11/10/2015 Influenza Vaccine (#1) 2024 05/19/2012 HPV Vaccines Completed 02/07/2008, 08/26, 07/08/2007 Insurance Advance Directives For more information, please contact: [phone] * Full Code (Latest Code Status on File) Date Activated Date Inactivated Comments 06/23/2022 2:54 PM 06/23/2022 9:48 PM Care Teams Stone Paver Relationship Specialty Start Date End Date Norberto Davis MD [address] [place] [address] PCP - General Emergency Medicine 11/11/23
--- OUTSIDE RECORDS SUMMARY | 2024-11-15 17:19 | XMS_ITS | Encounter Summary ---
Author Organization [facility] Address [address] [place] [address] Care Team Providers Care Engraver Tender Name Role Phone None, Provider Primary Care Provider Unavaila ble Encounter Details Date Type Department Care Team (Late st Contact Info) Description 12/31/2018 Abstract [facility] CONVERSION [address] [place] [address] , Generic Conversion, Social History Tobacco Use Types Packs/Day Years Used Date Smoking Tobacco: Never Assessed Comments Unknown Sex and Gender Information Value Date Recorded Sex Assigned at Not on file Legal Sex Female 6:29 PM CDT Gender Identity Not on file Sexual Orientation Not on file documented as of this encounter Plan of Treatment Not on file documented as of this encounter Visit Diagnoses Not on filedocumented in this encounter Care Teams Engraver Tender Relationship Specialty Start Date End Date None, ProviderMD PCP - General 10/08/21 documented as of this encounter
--- OUTSIDE RECORDS SUMMARY | 2024-11-15 17:19 | XMS_ITS | Clinical Summary ---
Author Organization [facility] Address [address] [place] [address] Care Team Providers Care Fishing Rod Assembler Name Role Phone None, Provider MD Primary Care Provider Unavaila ble Allergies No known active allergies Medications No known medications Social History Tobacco Use Types Packs/Day Years Used Date Smoking Tobacco: Every Day Cigarettes Smokeless Tobacco: Never Tobacco Cessation:Ready to Q uit: Not Asked; Counseling Given: Not Answered Alcohol Use Standard Drinks/Week Comments Not Currently 0 (1 standard drink = 0.6 oz pur e alcohol) Comments Unknown Sex and Gender Information Value Date Recorded Sex Assigned at Not on file Legal Sex Female 6:29 PM CDT Gender Identity Not on file Sexual Orientation Not on file Last Filed Vital Signs Vital Sign Reading Time Taken Comments Blood Pressure 126/68 05/30/2023 10:53 PM DIRECTOR CORPORATE Pulse 100 05/30/2023 10:53 PM DIRECTOR CORPORATE Temperature 36.7 C (98 F) 05/30/2023 10:53 PM DIRECTOR CORPORATE Respiratory Rate 18 05/30/2023 10:53 PM DIRECTOR CORPORATE Oxygen Saturation 98% 05/30/2023 10:53 PM DIRECTOR CORPORATE Inhaled Oxygen Concentration - - Weight 103.9 kg (229 lb) 05/30/2023 10:53 PM DIRECTOR CORPORATE Height 172.7 cm (5' 8 ) 05/30/2023 10:53 PM DIRECTOR CORPORATE Body Mass Index 34.82 05/30/2023 10:53 PM DIRECTOR CORPORATE Plan of Treatment Health Maintenance Due Date Last Done Comments Cervical Cancer Screening Pa p Smear (Age 30 to 64) Every 3 Years 1990 Annual Physical 1993 Hepatitis C 2008 Hepatitis B Vaccines (1 of 3 - 19+ 3-dose series) 2009 Pneumococcal Vaccine: Pediatrics (0 to 5 Years) and At-Risk Patients (6 to 49 Years) (1 of 2 - PCV) 2009 DTaP, Tdap and Td Vaccines ( 2 - Td or Tdap) 11/10/2015 11/09/2005 Cervical Cancer Screening Pa p with HPV Testing (Age 30 to 64) Every 5 Years 2020 Cervical Cancer Screening wi th HPV 2020 COVID-19 Vaccine (1 - 2023-2 5 season) 2024 Meningococcal Vaccine Aged Out 02/03/2006 No stepan concepcion eligible based on patient's age to complete this topic HPV Vaccines Completed 02/07/2008, 09/08/2007, 07/08/2007 Meningococcal B Vaccine Aged Out No l onger eligible based on patient's age to complete this topic RSV Immunizations Under 20 Months Aged Out No longer eligible b ased on patient's age to complete this topic Insurance [employer]OX[employer] Advance Directives Documents on File Type Date Recorded 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
[2024-11-15 17:28] LABS: Basophils Absolute Auto 0.1 K/mm3 (0.0-0.1); Basophils Percent Auto 0.7 % (0.2-1.2); Eosinophils Absolute Auto 0.4 K/mm3 (0-0.3); Eosinophils Percent Auto 3.8 % (0-4.4); Hematocrit 41.3 % (37.0-47.0); Hemoglobin 13.5 g/dL (12.0-15.0); Immature Granulocyte Absolute 0.06 K/mm3 (0.00-0.031); Immature Granulocyte Percent A 0.6 % (0-0.5); Lymphocytes Absolute Auto 1.95 K/mm3 (0.9-3.2); Lymphocytes Percent Auto 17.9 % (18.3-44.2); Mean Corpuscular HGB Conc 32.7 g/dl (32-36); Mean Corpuscular Hemoglobin 29.7 pg (26-34); Mean Platelet Volume 9.4 fl (7.4-10.4); Monocytes Absolute Auto 0.6 K/mm3 (0.1-0.6); Monocytes Percent Auto 5.8 % (2.6-8.5); Neutrophils Absolute Auto 7.8 K/mm3 (1.3-6.7); Neutrophils Percent Auto 71.2 % (45.5-73.1); Platelet Count Result 401 k/mm3 (150-375); Red Blood Count 4.54 M/mm3 (4.2-5.4); Red Cell Distribution Width 13.9 % (11.5-14.5); White Blood Count 10.9 K/mm3 (4.5-10.0)
[2024-11-15 17:37] LABS: Alanine Aminotransferase 20 U/L (6-35); Albumin Level 4.4 g/dL (3.5-5.1); Alkaline Phosphatase 28 U/L (38-126); Anion Gap 11 mmol/L (4-12); Aspartate Amino Transferase 22 U/L (14-36); Bilirubin,Total 0.3 mg/dL (0.2-1.3); Blood Urea Nitrogen 8 mg/dL (7-17); Calcium 8.9 mg/dL (8.4-10.2); Carbon Dioxide 23 mmol/L (22-30); Chloride 104 mmol/L (98-107); Estimated CRCL calculation 116 ml/min; Estimated Glomerular Filt Rate > 60; Glucose 95 mg/dL (65-110); Lipase 139 U/L (23-300); Potassium 4.1 mmol/L (3.4-5.0); Sodium 138 mmol/L (137-145)
--- NOTE | 2024-11-15 17:41 | ED_ITS ---
HPI - Nausea/Vomiting/Diarrhea General Chief complaint: Abdominal Pain Stated complaint: dyspnea Time Seen by Provider: 11/15/24 17:08 History of Present Illness HPI Narrative: 34-year-old female with history of Crohn's and depression presents to the emergency department for 2 days of burning in her esophagus after vomiting. Patient states she has chronic daily nausea and vomiting for several years. States 2 days ago she began having burning in her esophagus which she would vomit which is new which is what prompted her to come to the ED. She is reporting some burning in her epigastrium as well that occurs with vomiting but has no focal abdominal pain. She denies chest pain or shortness of breath. Had 1 episode of diarrhea yesterday but that has since resolved. Her last bowel movement was prior to arrival and normal. She does note that she had bright red blood in her stool about a week ago which she is attributing this to hemorrhoids and states that has since resolved. She takes citalopram and amitriptyline for her Crohn's. Pt states she follows with GI clinic at [place] and is planning to schedule a colonoscopy soon. She states her last colonoscopy was about 1-2 years ago which showed colitis. She admits to using marijuana daily for several years and states smoking marijuana and drinking water help her symptoms. Related Data Allergies Allergy/AdvReac Type Severity Reaction Status Date / Time morphine AdvReac Intermediate really Verified 08/17/24 16:26 bad migraines Review of Systems 2 Review of Systems: All systems reviewed & are unremarkable except as noted in HPI and below PMFSH Past Medical History Medical History Depression Gastritis Crohn's disease Surgical History Surgical History H/O colonoscopy Family History Family History Father , Motorcycle accident Unknown family medical history Mother COPD (chronic obstructive pulmonary disease) Smoker Social History Social History Smoking status: Former smoker Tobacco type: cigarettes Second hand tobacco smoke exposure: No Alcohol intake: former Substance use: current Substance use type: marijuana Other substance usage details: 8-9 times daily Living arrangements: with family Occupation/Education: unemployed Gender identity (if verbalized by the patient): Female Sexual Orientation (if Verbalized by the Patient): Straight or Heterosexual Exam 2 Narrative: GENERAL: Well-appearing, well-nourished, and in no acute distress. HEAD: Normocephalic, atraumatic. EYES: EOMI. ENT: Nares clear, no rhinorrhea or epistaxis. Mucous membranes moist. NECK: Supple. CHEST: Clear to auscultation. No respiratory distress. No crepitus to chest wall HEART: Regular rate and rhythm. No murmur heard. Normal peripheral pulses. ABDOMEN: Soft, nontender, nondistended, normal active bowel sounds. No rebound, guarding or rigidity. No CVA tenderness EXTREMITIES: Normal range of motion. No edema. SKIN: Warm, dry, no rash. NEURO: No focal deficits. Alert and oriented x3 Course Vital Signs Vital signs: Vital Signs Temperature 97.7 F 11/15/24 15:23 Pulse Rate 78 11/15/24 15:23 Respiratory Rate 18 11/15/24 15:23 Blood Pressure 130/88 11/15/24 15:23 Pulse Oximetry 98 11/15/24 15:23 Oxygen Delivery Room Air 11/15/24 15:23 Temperature 97.7 F 11/15/24 15:23 Pulse Rate 80 11/15/24 17:08 Respiratory Rate 18 11/15/24 17:08 Blood Pressure 120/80 11/15/24 17:08 Pulse Oximetry 99 11/15/24 17:08 Oxygen Delivery Room Air 11/15/24 15:23 MDM - Nausea/Vomiting/Diarrhea MDM Narrative Medical decision making narrative: 34-year-old female with history of Crohn's and depression presents to the emergency department for chronic nausea vomiting daily for several years, over the past 2 days has developed burning in her esophagus when she vomits. Vitals are stable. Patient is afebrile and nontoxic appearing. Abdomen is soft and nontender. Lab work with mild leukocytosis of 10.9. Platelets and coags are within normal limits. Chemistries are unremarkable with no electrolyte derangements. is negative. Chest x-ray shows no acute cardiopulmonary findings, no evidence of pneumomediastinum. Lipase within normal limits. UA with hematuria, patient is currently on her menstrual cycle, no UTI. Patient updated on results. She received GI cocktail, Zofran and Pepcid with significant improvement. She is tolerating p.o. intake and states she feels much better. Patient was educated to discontinue marijuana use as this is likely the source of her chronic nausea and vomiting. Omeprazole and Zofran sent to pharmacy for symptomatic control. Advised follow-up with her GI physician and discussed return precautions. She is agreeable with the plan verbalized understanding. Discharged in stable condition. Lab Data 11/15/24 17:20 11/15/24 17:20 Labs: Lab Results 11/15/24 11/15/24 11/15/24 Range/Units 17:20 18:06 18:09 WBC 10.9 H (4.5-10.0) K/mm3 RBC 4.54 (4.2-5.4) M/mm3 Hgb 13.5 (12.0-15.0) g/dL Hct 41.3 (37.0-47.0) % MCV 91.0 (80-100) fl MCH 29.7 (26-34) pg MCHC 32.7 (32-36) g/dl RDW 13.9 (11.5-14.5) % Plt Count 401 H (150-375) k/mm3 MPV 9.4 (7.4-10.4) fl Immature Gran % (Auto) 0.6 H (0-0.5) % Neut % (Auto) 71.2 (45.5-73.1) % Lymph % (Auto) 17.9 L (18.3-44.2) % Walker % (Auto) 5.8 (2.6-8.5) % Eos % (Auto) 3.8 (0-4.4) % Baso % (Auto) 0.7 (0.2-1.2) % Lymph # (Auto) 1.95 (0.9-3.2) K/mm3 Walker # (Auto) 0.6 (0.1-0.6) K/mm3 Eos # (Auto) 0.4 H (0-0.3) K/mm3 Baso # (Auto) 0.1 (0.0-0.1) K/mm3 Abs Immat Gran (auto) 0.06 H (0.00-0.031) K/mm3 Absolute Neuts (auto) 7.8 H (1.3-6.7) K/mm3 Absolute Nucleated RBC 0.000 (0.0-0.012) K/mm3 Nucleated RBC % 0.0 (0.0-0.2) % PT 12.5 (11.1-14.7) Seconds INR 0.9 APTT 26.3 (22.3-36.8) Seconds Sodium 138 (137-145) mmol/L Potassium 4.1 (3.4-5.0) mmol/L Chloride 104 (98-107) mmol/L Carbon Dioxide 23 (22-30) mmol/L Anion Gap 11 (4-12) mmol/L BUN 8 (7-17) mg/dL Creatinine 0.75 (0.7-1.0) mg/dL Estim Creat Clear Calc 116 ml/min Estimated GFR > 60 (59 - ) Glucose 95 (65-110) mg/dL Calcium 8.9 (8.4-10.2) mg/dL Total Bilirubin 0.3 (0.2-1.3) mg/dL AST 22 (14-36) U/L ALT 20 (6-35) U/L Alkaline Phosphatase 28 L (38-126) U/L Total Protein 8.0 (6.3-8.2) g/dL Albumin 4.4 (3.5-5.1) g/dL Lipase 139 (23-300) U/L Urine Color Yellow (Yellow) Urine Appearance Clear (Clear) Urine pH 5.5 (5.0-9.0) Ur Specific [place] 1.018 (1.001-1.035) Urine Protein Negative (Negative) mg/dL Urine Glucose (UA) Negative (Negative) mg/dL Urine Ketones Negative (Negative) mg/dL Ur Blood (Man) 3+ H (Negative) Urine Nitrate Negative (Negative) Urine Bilirubin Negative (Negative) Urine Urobilinogen 0.2 (<2.0) mg/dL Leukocyte Esterase Rfl Negative (Negative) FABIO/UL Urine RBC 11-20 H (0-2) /hpf Urine WBC 0-5 (0-3) /hpf Ur Squamous Epith Cells None seen (Few) /hpf Urine Bacteria None seen /hpf Urine Casts 0-2 POC Urine HCG, Qual Negative (Negative) Discharge Plan Discharge Clinical Impression: Dyspepsia Nausea & vomiting Qualifiers: Vomiting type: unspecified Qualified Code(s): R11.2 - Nausea with vomiting, unspecified Patient Disposition: Home Condition: Stable Instructions: Antibiotic Form, Indigestion (ED), Cannabis Use Disorder (ED) Additional Instructions: Your evaluated in the emergency department for chronic nausea and vomiting and burning in her esophagus. Your workup here is reassuring. Her presentation is consistent with heartburn as discussed. Your use of marijuana is likely the source of your chronic neck nausea and vomiting. Please discontinue marijuana use to in turn help your nausea vomiting. This will also help with the heartburn symptoms you are experiencing. Please take the medications as directed and follow-up closely with your GI specialist. Return to the emergency department if you develop worsening or changing pain, fever, vomiting bright red blood or coffee-ground appearing emesis, or other concerning symptoms. Patient Language: Occitan Prescriptions: New omeprazole 20 mg capsule,delayed release(DR/EC) 20 mg PO DAILY Qty: 30 0RF ondansetron 4 mg tablet,disintegrating 4 mg PO Q8H Qty: 14 0RF No Action Xifaxan 550 mg tablet 550 mg PO TID 14 Days Qty: 42 1RF citalopram 20 mg tablet 20 mg PO DAILY Qty: 90 0RF ondansetron 4 mg tablet,disintegrating 4 mg PO Q8H PRN (Reason: nausea and vomiting) Qty: 30 0RF amitriptyline 10 mg tablet 10 mg PO HS Qty: 30 3RF Follow-up/Referrals: PHYSICIAN,SCRAP PREPARATION SUPERVISOR [Primary Care Provider] -
[2024-11-15 18:06] LABS: INR 0.9; Prothrombin Time 12.5 Seconds (11.1-14.7)
[2024-11-15 18:07] LABS: Partial Thromboplastin Time 26.3 Seconds (22.3-36.8)
[2024-11-15] MEDS: FAMOTIDINE 20 MG/2 ML VIAL IV PUSH (18:08)
[2024-11-15] MEDS: ONDANSETRON INJ 4 MG/2 ML VIAL IV PUSH (18:08)
[2024-11-15] MEDS: BELLADONNA ALK/PHENOB ELIX 10 ML, MAG HYDROX/ALUMINUM HYD/SIMETH 30 ML, LIDOCAINE 2% VI... PO (18:08)
[2024-11-15 18:10] LABS: BEDSIDEPREGUCG Negative (Negative)
[2024-11-15 18:20] LABS: Add Urine Microscopic? YES; Appearance Urine Clear (Clear); Bacteria Urine None Seen /hpf; Bilirubin Urine Negative (Negative); Blood Urine 3+ (Negative); Color Urine Yellow (Yellow); Glucose Urine UA Negative (Negative); Ketones Urine Negative (Negative); Leukocyte Esterase Ur Negative LEU/UL (Negative); Nitrate Urine Negative (Negative); Non Pathogenic Casts 0-2; Protein Urine Negative (Negative); Specific Grav Ur 1.018 (1.001-1.035); Squamous Epithelial Cell Urine None Seen /hpf (Few); Urobilinogen Urine 0.2 mg/dL (<2.0); WBC Urine 0-5 /hpf (0-3); pH Urine 5.5 (5.0-9.0)
--- NOTE | 2024-11-15 18:44 | PC.NURSE ---
pt given crackers and a sprite for a po challenge
--- OUTSIDE RECORDS SUMMARY | 2024-11-15 18:45 | XMS_ITS | Clinical Summary ---
Author Organization [facility] Address [address] [place] [address] Care Team Providers Care Mobile Home Set Up Person Name Role Phone Norberto Davis MD Primary Care Provider [phone] Allergies Active Allergy Reactions Criticality Noted Date [...] colitis. Assessment & Plan (08/21/2021 9:21 PM PREASSEMBLER AND INSPECTOR): 30 year old with ileal Crohn's disease [...] (08/21/2021): Added automatically from request for surgery [id number] Surgical History Surgery Date Site/Laterality Comments CHOLECYSTECTOMY [...] on file Legal Sex Female 5:43 PM PREASSEMBLER AND INSPECTOR Gender Identity Female 10/16/2021 6:46 PM CDT [...] cm (5' 8 ) 06/23/2022 3:01 PM PREASSEMBLER AND INSPECTOR Body Mass Index 35.73 06/23/2022 3:01 PM PREASSEMBLER AND INSPECTOR Plan of Treatment Health Maintenance Due Date [...] Advance Directives For more information, please contact: [phone] * Full Code (Latest Code Status on File) Date Activated Date Inactivated Comments 06/23/2022 2:54 PM 06/23/2022 9:48 PM Care Teams Mobile Home Set Up Person Relationship Specialty Start Date End Date Norberto Davis MD [address] [place] [id number] PCP - General Emergency Medicine 11/11/23
--- OUTSIDE RECORDS SUMMARY | 2024-11-15 18:45 | XMS_ITS | Encounter Summary ---
Author Organization [facility] Address [address] [place] [address] Care Team Providers Care Math Interventionist Name Role Phone None, Provider Primary Care Provider Unavaila ble Encounter Details Date Type Department Care Team (Late st Contact Info) Description 12/31/2018 Abstract [facility] CONVERSION [address] [place] [address] , Generic Conversion, Social History Tobacco Use [...] on filedocumented in this encounter Care Teams Math Interventionist Relationship Specialty Start Date End Date None, ProviderMD PCP - General 10/08/21 documented as of this encounter
--- OUTSIDE RECORDS SUMMARY | 2024-11-15 18:45 | XMS_ITS | Clinical Summary ---
Author Organization [facility] Address [address] [place] [id number] Care Team Providers Care Unit Aid Name Role Phone None, Provider MD Primary [...] Comments Blood Pressure 126/68 05/30/2023 10:53 PM SENIOR C WEB DEVELOPER Pulse 100 05/30/2023 10:53 PM SENIOR C WEB DEVELOPER Temperature 36.7 C (98 F) 05/30/2023 10:53 PM SENIOR C WEB DEVELOPER Respiratory Rate 18 05/30/2023 10:53 PM SENIOR C WEB DEVELOPER Oxygen Saturation 98% 05/30/2023 10:53 PM SENIOR C WEB DEVELOPER Inhaled Oxygen Concentration - - Weight 103.9 kg (229 lb) 05/30/2023 10:53 PM SENIOR C WEB DEVELOPER Height 172.7 cm (5' 8 ) 05/30/2023 10:53 PM SENIOR C WEB DEVELOPER Body Mass Index 34.82 05/30/2023 10:53 PM SENIOR C WEB DEVELOPER Plan of Treatment Health Maintenance Due Date [...] Documents on File Type Date Recorded Patient University Registrar Expl anation Advance Directives and Living Will 10/20/2012 12:00 AM ADVANCED DIRECTIVES Advance Directives and Living Will 10/06/2012 12:00 AM ADVANCED DIRECTIVES Care Teams Unit Aid Relationship Specialty Start Date End Date None, Provider, PCP - General 10/08/21
--- OUTSIDE RECORDS SUMMARY | 2024-11-15 18:45 | XMS_ITS | Referral Summary ---
Author Organization [facility] Address [address] [place] [address] Care Team Providers Care Pocket Grinder Operator Name Role Phone Norberto Davis MD Primary Care Provider [phone] Allergies Active Allergy Reactions Criticality Noted Date [...] colitis. Assessment & Plan (08/21/2021 9:21 PM HEALTH AND WELLNESS COORDINATOR): 30 year old with ileal Crohn's disease [...] (08/21/2021): Added automatically from request for surgery [id number] Social History Tobacco Use Types Packs/Day Years [...] on file Legal Sex Female 5:43 PM HEALTH AND WELLNESS COORDINATOR Gender Identity Female 10/16/2021 6:46 PM CDT [...] cm (5' 8 ) 06/23/2022 3:01 PM HEALTH AND WELLNESS COORDINATOR Body Mass Index 35.73 06/23/2022 3:01 PM HEALTH AND WELLNESS COORDINATOR Plan of Treatment Not on file Insurance [facility] Advance Directives For more information, please contact: [phone] * Full Code (Latest Code Status on File) Date Activated Date Inactivated Comments 06/23/2022 2:54 PM 06/23/2022 9:48 PM Care Teams Pocket Grinder Operator Relationship Specialty Start Date End Date Norberto Davis MD [address] [address] PCP - General Emergency Medicine 11/11/23
--- OUTSIDE RECORDS SUMMARY | 2024-11-15 18:45 | XMS_ITS | Clinical Summary ---
Author Organization [facility] Julio Dorsey Address [address] [facility] [place] [address] Care Team Providers Care Rn Clinical Coordinator Name Role Phone Norberto Davis MD Primary Care Provider [phone] Allergies Active Allergy Reactions Criticality Noted Date [...] [place] [address] [employer] [place] Care Teams Rn Clinical Coordinator Relationship Specialty Start Date End Date Norberto Davis MD [address] [place] [phone] PCP - General Emergency Medicine 03/05/21
[2024-11-15 18:59] VITALS: BP 130/80; PULSE 70; RESP 16; O2SAT 98
== END 2024-11-15 19:07 | disposition home or self-care (01) ==
PROVIDERS: Student in an Organized Health Care Education/Training Program; Emergency Provider Physician Assistant
DX: R11.2 Nausea with vomiting, unspecified (principal); R10.13 Epigastric pain; F32.A Depression, unspecified; K50.90 Crohn's disease, unspecified, without complications
CPT/HCPCS: 36415; 71046; 80053; 81001; 81025; 83690; 85025; 85610; 85730; 96374; 96375; 99284; A9270; J2405

== ENCOUNTER 2025-02-12 17:08 | Emergency (ER) | payer OTHER, SELFPAY ==
--- OUTSIDE RECORDS SUMMARY | 2025-02-12 17:10 | XMS_ITS | Clinical Summary ---
Author Organization [facility] Address [address] [place] [address] Care Team Providers Care Slipper Maker Name Role Phone Norberto Davis MD Primary Care Provider [phone] Allergies Active Allergy Reactions Criticality Noted Date [...] colitis. Assessment & Plan (08/21/2021 9:21 PM ADMINISTRATIVE SUPPORT MANAGER): 30 year old with ileal Crohn's disease [...] (08/21/2021): Added automatically from request for surgery [id number] Surgical History Surgery Date Site/Laterality Comments CHOLECYSTECTOMY [...] on file Legal Sex Female 5:43 PM ADMINISTRATIVE SUPPORT MANAGER Gender Identity Female 10/16/2021 6:46 PM CDT [...] 4:13 PM CDT Height 172.7 cm (5' 8) 06/23/2022 3:01 PM ADMINISTRATIVE SUPPORT MANAGER Body Mass Index 35.73 06/23/2022 3:01 PM ADMINISTRATIVE SUPPORT MANAGER Plan of Treatment Health Maintenance Due Date Last Done Comments Cervical Cancer Screening 1990 Depression Screening 1990 Hepatitis C Screening 1990 Varicella Vaccines (1 of 2 - 13+ 2-dose series) 2003 Hepatitis B Screening 2008 Regular Well Visit/Exam 18-64 2008 Pneumococcal vaccine <65 (1 of 2 - PCV) 2009 DTaP/Tdap/Td Vaccine (2 - Td or Tdap) 11/10/2015 Influenza Vaccine (Season Ended) 2025 05/19/20 12 HPV Vaccines Completed 02/07/2008, 08/26, 07/08/2007 Insurance Advance Directives For more information, please contact: [phone] * Full Code (Latest Code Status on File) Date Activated Date Inactivated Comments 06/23/2022 2:54 PM 06/23/2022 9:48 PM Care Teams Slipper Maker Relationship Specialty Start Date End Date Norberto Dvais MD [address] [place] [id number] PCP - General Emergency Medicine 11/11/23
--- OUTSIDE RECORDS SUMMARY | 2025-02-12 17:11 | XMS_ITS | Referral Summary ---
Author Organization [facility] Address [address] [place] [address] Care Team Providers Care Linen Room Custodian Name Role Phone Norberto Davis MD Primary Care Provider [phone] Allergies Active Allergy Reactions Criticality Noted Date [...] colitis. Assessment & Plan (08/21/2021 9:21 PM TOW OPERATOR): 30 year old with ileal Crohn's disease [...] (08/21/2021): Added automatically from request for surgery [id number] Social History Tobacco Use Types Packs/Day Years [...] on file Legal Sex Female 5:43 PM TOW OPERATOR Gender Identity Female 10/16/2021 6:46 PM CDT [...] 172.7 cm (5' 8) 06/23/2022 3:01 PM TOW OPERATOR Body Mass Index 35.73 06/23/2022 3:01 PM TOW OPERATOR Plan of Treatment Not on file Insurance [facility] Advance Directives For more information, please contact: [phone] * Full Code (Latest Code Status on File) Date Activated Date Inactivated Comments 06/23/2022 2:54 PM 06/23/2022 9:48 PM Care Teams Linen Room Custodian Relationship Specialty Start Date End Date Norberto Davis MD [address] [address] PCP - General Emergency Medicine 11/11/23
--- OUTSIDE RECORDS SUMMARY | 2025-02-12 17:11 | XMS_ITS | Clinical Summary ---
Author Organization [facility] Julio Dorsey Address [address] [facility] [place] [address] Care Team Providers Care Mobile Marketing Specialist Name Role Phone Norberto Davis MD Primary Care Provider [phone] Allergies Active Allergy Reactions Criticality Noted Date [...] 4:00 PM CDT Height 172.7 cm (5' 8) 03/05/2021 4:00 PM CDT Body Mass Index 40.54 03/05/2021 4:00 PM CDT Plan of Treatment Health Maintenance Due Date Last Done Comments HPV VACCINES (1 - 3-dose series) 2005 DTAP/TDAP/TD VACCINES (1 - Tdap) 2009 HEPATITIS B VACCINES (1 of 3 - 19+ 3-dose series) 08/26 HPV/Cotest (21-29) 2011 CERVICAL CANCER SCREENING 2020 HPV/Cotest (30-65) 2020 PAP SMEAR 2020 INFLUENZA VACCINE (#1) 2025 Insurance [employer] [place] Care Teams Mobile Marketing Specialist Relationship Specialty Start Date End Date Norberto Davis MD [address] [place] [phone] PCP - General Emergency Medicine 03/05/21
--- OUTSIDE RECORDS SUMMARY | 2025-02-12 17:11 | XMS_ITS | Data Portability ---
Author Organization [facility] Address [address] [place] [address] Assessment No assessment recorded. Plan of Treatment Reminders Order Date Submit Date Provider Last Modified By Organization Details Last Modified Time Details Appointments None recorded. Lab pap, LB 2022 023 [facility], [address] [facility], [place], [address], 3 15:40:47 unlisted lab - HPV plus CT/GC/trich 2022 023 [employer] [facility] [place] [facility], [address] [place] [address], [address], 3 13:05:03 Referral None recorded. Procedures removal, implantable contracepti ve (PROC) 2021 022 [email or web address] Not available 10:39:16 Surgeries None recorded. Imaging None recorded. Medication Orders ibuprofen 800 mg tablet 2022 023 [facility] #[id number], [address] [facility], [place], [place], [id number], 3 11:56:04 Junel FE 08/14 (28) 1 mg-20 mcg (21)/75 mg (7) tablet 2021 [facility]22 [id number], [address] [facility], [place], [place], [id number], 3 11:44:55 Patient TargetsNo targets recorded. Patient Instructions Encounter Date Encounter Id Patient Instructions Last Modified By Organization Details Last Modified Time 04/23/2022 [id number] learning about control [email or web address] Not available 04/23/2022 13:15:46 preconceptual counseling [email or web address] Not available 04/23/2022 13:15:46 11/17/2022 [id number] Patient Health Questionnaire-9* [email or web address] Not available 11/30/2022 [...] l cervi gisel cytol [place]gy. [place], [address], 11/19/2022 13:05:03 11/18/19 23 11/19/[address]/GC /TRIC H trichomonas vaginalis TRICH POS negati ve abnormal Not Available [facility] [address] [place], [address], 11/19/2022 13:05:03 11/18/19 23 11/19/[address]/GC /TRIC H chlamydia trachomatis CT neg negati ve normal This repor t is inten ded for us in clini gisel monit oring and manag [facility]ment [facility]. It is not inten ded for use in medic [facility] gal appli catio n. Not Available [address], [address], 11/19/2022 13:05:03 11/18/19 23 11/19/[address]/GC /TRIC H neisseria gonorrhoeae GC neg negati ve normal This repor t is inten ded for us in clini gisel monit oring and manag ement of patie nts. It is not inten ded for use in medic al- gal appli catio n. Not Available [facility] [address] [place], [address], 11/19/2022 13:05:03 11/18/19 23 11/24/2022 THINP REP TIS PAP clinical information: normal None given Not Available [employer] [address] [place], [address], 11/24/2022 15:40:47 11/18/19 23 11/24/2022 THINP REP TIS PAP LMP: normal NONE GIVEN Not Available [employer] [address] [place], [address], 11/24/2022 15:40:47 11/18/19 23 11/24/2022 THINP REP TIS PAP prev. Pap: normal NONE GIVEN Not Available [employer] [address] [address] [place], [address], 11/24/2022 15:40:47 11/18/19 23 11/24/2022 THINP REP TIS PAP prev. BX: normal NONE GIVEN Not Available [employer] [address] [address] [place], [address], 11/24/2022 15:40:47 11/18/19 23 11/24/2022 THINP REP TIS PAP source: normal Cervi x Not Available [address] [address] [place], [address], 11/24/2022 15:40:47 11/18/1911/24/2022 THINP REP TIS PAP statement of adequacy: normal Satis facto ry for evalu ation . Endoc ervic al/tr ansfo rmati on zone compo nent prese nt. Age and/o r menst rual statu s not provi ded Not Available [place] [address] [place], [address], 11/24/2022 15:40:47 11/18/19 23 11/24/2022 THINP REP TIS PAP interpretati on/result: normal Negat neeta for intra epith elial lesio n or malig rupinder . Not Available [address] [address] [place], [address], 11/24/2022 15:40:47 11/18/19 23 11/24/2022 THINP REP TIS PAP comment: normal This Pap test has been evalu ated with compu ter samara jermaine techn ology . Not Available [address] [address] [place], [address], 11/24/2022 15:40:47 11/18/19 23 11/24/2022 THINP REP TIS PAP cytotechnolo gist: normal JAF, CT( CP) CT Scree kieran Locat ion: [place] [address] [address] [place] [place] [address] Not Available [place] [address] [address] [place], [address], 11/24/2022 15:40:47 11/18/19 23 11/24/2022 THINP REP [...] clini gisel infor matio n. Not Available [employer] [facility] [address] [address], [place], [address], 11/24/2022 15:40:47 Result Notes None recorded. Procedures Surgical History Date Name Laterality Status Provider Name and Address Organization Details Recorded Time 2 Nexplanon Removal completed Alicia Matute , [facility] [address] [facility], [place], [address], [facility] [employer] [facility] 04/23/2022 15:57:01 9 Date of Last Pap Smear completed Tramea Pebbles [place] - [facility] 04/23/2022 12:40:36 Colonoscopy completed Tramea [...] Name and Address Organization Details Recorded Time [id number] morphine medicatio n Not available Not available Not available 11/17/2022 7052 [employer] Tramea Pebbles null, [place] - [facility] IV 3 11:30:26 Medications Name Sig Start Date Stop Date [...] index (BMI) Body weight Body temperature Systolic And Diastolic Provider Name and Address Organization Details Last Updated DateTime 11/17/2022 172.72 cm 34.6 kg/m2 408407. 9 g 97 [degF] 120/70 mm[Hg] Ori Rogel [email or web address] IV 3 11:44:15 Date Recorded Body height Body mass index (BMI) Body weight Body temperature Systolic And Diastolic Provider Name and Address Organization Details Last Updated DateTime 04/23/2022 172.72 cm 37.6 kg/m2 222043. 32 g 97 [degF] 110/70 mm[Hg] Ori Rogel [email or web address] IV 2 12:49:42 Social History Question Answer Notes LastModified by Organizat ion Details LastModified Time Tobacco Smoking Status Former Smoker Ori tracy [email or web address] [facility] 04/23/2022 12:44:04 How Many Years Have You Consumed Alcohol? 14 Information not available 11/17/2022 Are You Blind Or Do You Have Difficulty Seeing? No Information not available 04/23/2022 Are You Deaf Or Do You Have Serious Difficulty Hearing? No Information not available 04/23/2022 What Type Of Diet Are You Following? REGULAR Information not available 04/23/2022 When Did You Quit Smoking? 1-5yearssinc elastcigaret te Information not available 04/23/2022 How Many Children [...] Participate In? Walk Information not available 04/23/2022 How Many Years Have You Smoked Tobacco? 10 Information not available 11/17/2022 Sex: Unknown Functional Status Question Answer Note LastModified by Organizat ion Details LastModified Time How many times per week do you consume alcohol? 1-2 times per week Information not available 04/23/2022 Do you use any illicit or recreational drugs? No Information not available 04/23/2022 Do you or have you ever used any other forms of tobacco or nicotine? No Information not available 04/23/2022 What is your level of alcohol consumption? Occasional Information not available 04/23/2022 Are you currently employed? 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 Never used electronic cigarettes Information not available 11/17/2022 What is your exercise level? Occasional Information [...] SNOMED-CT Code Diagnosis ICD10 Code Diagnosis Note [id number] Alicia BatistaGiovanna is, [facility] [address] [place] [address] 04/23/2022 12:25:49 04/23/2022 16:31:32 Contraception care 330028569 Z30.40 Surveillan ce of contraception 959722755 Z30.40 [id number] Alicia Roman is, [facility] [address] [place] [address] 11/17/2022 10:43:50 11/17/2022 12:24:32 Gynecologic examination 78685913 Z01.419 Depression screening 171 113695 Z13.31 Dietary ma nagement surveillance 922004028 Z71.3 Screening for malignant neoplasm of cervix 087239800 Z12.4 Surveillan ce of contraception 567862323 Z30.[address] [facility] care education 652209158 Z30.09 Diabetes m ellitus screening 487597793 Z13.1 Dysmenorrhea 161976524 N 94.6 Health Concerns Section Related Observation LastModified by Organization Detai ls LastModified Time None Recorded Concern Status LastModified by Organization Details LastModified Time None Recorded Advance Directives Directive None Recorded Payers Insurance Date Sequence Insurance Name Policy Number Policy Gray Covered Member ID Gray Member ID Guarantor Name 07/26/2023 1 [facility] (MEDICAID HMO) [id number] [facility] [id number] [facility] Notes Date Note Type Note Provider Name and Address Organization Details Recorded Time 04/23/2022 text/html Patient is here to get nexplanon nexplanon removed Alicia Matute CNM [facility], [facility] [place], [address], [facility] [employer] IV 04/23/2022 16:00:23 11/17/2022 text/html Annual GYNReport ed bypatient.History: Patient states when she has her period she had real bad pelvic pains and during intercourse Menstrual cycle:Normal menses Urinary symptoms:No hematuria Vulva:No genital lesion Vagina:Normal vaginal discharge Breast:No breast pain; No breast lump Current Contraception:[place] gamous relationship Sexual complaints:No pain during intercourse Menopausal Symptoms:No menopausal symptoms Psychological symptoms:Depressio n Patient is here for annual exam Alicia Matute CNM [facility], [facility] [place], [address], [facility] [employer] IV 11/17/2022 11:56:29 OBGyn Episode Ob Episode Information Episode Created Date Number of Fetuses Patient Bloodtype Patient rh Status Prepregnancy Weight lbs Domestic Partner Domestic Partner Phone Father Name Plunger Machine Operator Status 11/18/19 23 1 CLOSED Fetus Data First Name Last Name Admitted to NICU Weight (g) Sex Living Outcome Pediatric Complications Fetus ID Race Codes Race Delivery Type 3543.46 [id number] Full Term [id number] Kraig Calculation Initial Kraig Date Initial Exam [...] Domestic Partner Domestic Partner Phone Father Name Plunger Machine Operator Status 11/18/19 23 1 CLOSED Fetus Data First Name Last Name Admitted to NICU Weight (g) Sex Living Outcome Pediatric Complications Fetus ID Race Codes Race Delivery Type 3430.06 2704 Full Term [id number] Kraig Calculation Initial Kraig Date Initial Exam [...]
--- OUTSIDE RECORDS SUMMARY | 2025-02-12 17:13 | XMS_ITS | Encounter Summary ---
Author Organization [facility] Address [address] [place] [address] Care Team Providers Care Post Closer Name Role Phone None, Provider Primary Care Provider Raquel Rendon MD Primary Care Provider [phone] Encounter Details Date Type Department Care Team (Late st Contact Info) Description 12/31/2018 Abstract [facility] CONVERSION [address] [place] [address] , Generic ConversionMD Social History Tobacco Use Types Packs/Day Years Used Date Smoking Tobacco: Never Assessed Comments Unknown Sex and Gender Information Value Date Recorded Sex Assigned at Not on file Legal Sex Female 6:29 PM CDT Gender Identity Not on file Sexual Orientation Not on file documented as of this encounter Plan of Treatment Upcoming Encounters Date Type Department Care Team (Late st Contact Info) Description 03/12/2025 3:20 PM CDT Office Visit [facility] Family & Internal Medicine [facility] [address] [place] [address] [place] [address] [phone] documented as of this encounter Visit Diagnoses Not on filedocumented in this encounter Care Teams Post Closer Relationship Specialty Start Date End Date None, Provider, PCP - General 10/08/21 02/04/25 [place] [address] [facility] [address] [place] [phone] PCP - General INTERNAL MEDICINE 02/05/25 documented as of this encounter
--- OUTSIDE RECORDS SUMMARY | 2025-02-12 17:13 | XMS_ITS | Clinical Summary ---
Author Organization [facility] Address [address] [place] [address] Care Team Providers Care Electromyographic Technician Name Role Phone Raquel Aviles MD Primary Care Provider [phone] Allergies No known active allergies Medications No [...] Comments Blood Pressure 126/68 05/30/2023 10:53 PM AREA ATTENDANT Pulse 100 05/30/2023 10:53 PM AREA ATTENDANT Temperature 36.7 C (98 F) 05/30/2023 10:53 PM AREA ATTENDANT Respiratory Rate 18 05/30/2023 10:53 PM AREA ATTENDANT Oxygen Saturation 98% 05/30/2023 10:53 PM AREA ATTENDANT Inhaled Oxygen Concentration - - Weight 103.9 kg (229 lb) 05/30/2023 10:53 PM AREA ATTENDANT Height 172.7 cm (5' 8) 05/30/2023 10:53 PM AREA ATTENDANT Body Mass Index 34.82 05/30/2023 10:53 PM AREA ATTENDANT Plan of Treatment Upcoming Encounters Date Type Department Care Team (Late st Contact Info) Description 03/12/2025 3:20 PM CDT Office Visit [facility] Family & Internal Medicine [address] [address] [place] [address] [facility] [address] [place] [address] Health Maintenance Due Date Last Done Comments [...] Screening wi th HPV 2020 COVID-19 Vaccine (2023-2 5 season) 2024 Meningococcal Vaccine Aged Out [...] Documents on File Type Date Recorded 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
[2025-02-12 17:15] VITALS: BP 125/66; PULSE 78; RESP 16; TEMP 37; O2SAT 99
--- NOTE | 2025-02-12 17:37 | ED.GENADULT ---
HPI - General Adult General Chief complaint: Abdominal Pain Stated complaint: medication refill Time Seen by Provider: 02/12/25 17:28 Source: patient, RN notes reviewed and old records reviewed Mode of arrival: ambulatory Limitations: no limitations History of Present Illness HPI narrative: Patient presents today requesting a medication refill of her amitriptyline 10 mg that she takes at for her Crohn's Disease. She has been out for 5 days and has an appointment to initiate care with a new GI on March 12 at [facility] in [place]. She reports generalized abdominal discomfort and nausea that has been worse over the last 2 days. States she is ready to start her period and typically has some increased symptoms around that time as well. Related Data Allergies Allergy/AdvReac Type Severity Reaction Status Date / Time morphine AdvReac Intermediate really Verified 02/12/25 17:14 bad migraines PMFSH Past Medical History Medical History Depression Gastritis Crohn's disease Surgical History Surgical History H/O colonoscopy Family History Family History Father , Motorcycle accident Unknown family medical history Mother COPD (chronic obstructive pulmonary disease) Smoker Social History Social History Smoking status: Former smoker Tobacco type: cigarettes Second hand tobacco smoke exposure: No Alcohol intake: former Substance use: current Substance use type: marijuana Other substance usage details: 8-9 times daily Living arrangements: with family Occupation/Education: unemployed Gender identity (if verbalized by the patient): Female Sexual Orientation (if Verbalized by the Patient): Straight or Heterosexual Comments At time of signature, I have reviewed and agree with nursing past medical, surgical, social and family history unless otherwise noted. Please see nursing chart for further information. There is no relevant family history pertinent to the presenting complaint Exam Narrative: GENERAL: Well-appearing, well-nourished, and in no acute distress. HEAD: Normocephalic, atraumatic. EYES: EOMI. No redness or drainage. Conjunctivae normal. ENT: Mucous membranes pink and moist. NECK: Normal AROM. Delete CHEST: No respiratory distress. Clear to auscultation. HEART: Regular rate and rhythm. No murmur appreciated. ABDOMEN: Soft, nondistended, normal active bowel sounds. Mild generalized abdominal tenderness without rebound or guarding. EXTREMITIES: Normal range of motion. No edema. SKIN: Warm, dry, no rash. Capillary refill normal. Normal skin turgor. NEURO: No focal deficits. Alert and oriented x3. Gait steady. PSYCH: Normal affect. No signs of depression or anxiety. Course Course Level of Care: Express Care Visit Vital Signs Vital signs: Vital Signs Temperature 98.6 F 02/12/25 17:15 Pulse Rate 78 02/12/25 17:15 Respiratory Rate 16 02/12/25 17:15 Blood Pressure 125/66 02/12/25 17:15 Pulse Oximetry 99 02/12/25 17:15 Oxygen Delivery Room Air 02/12/25 17:15 Temperature 98.6 F 02/12/25 17:15 Pulse Rate 78 02/12/25 17:15 Respiratory Rate 16 02/12/25 17:15 Blood Pressure 125/66 02/12/25 17:15 Pulse Oximetry 99 02/12/25 17:15 Oxygen Delivery Room Air 02/12/25 17:15 Review Medical Decision Making [facility] Narrative Medical decision making narrative: 34-year-old female patient with history of Crohn's disease presents today requesting a medication refill of her amitriptyline 10 mg that she has been out of for the past 5 days. She is waiting on a new patient appointment with a new ingot caster on March 12. The office of her old ingot caster will not refill her medication. She has some generalized abdominal discomfort and nausea since being off the medication, but also worsened due to starting her menstrual cycle in a few days. Upon exam, she does have some mild generalized abdominal discomfort without rebound or guarding, which she states is baseline. Vital signs stable, patient afebrile. Prescription for 30 days of amitriptyline sent to pharmacy. Called patient's pharmacy and patient has not had a refill since December 21, #30. Anticipatory guidance given. Differential Diagnosis Differential Diagnosis: Medication refill, Crohn's disease, IBS, peritonitis, colitis Vital Signs Vital Signs: Vital Signs Temperature 98.6 F 02/12/25 17:15 Pulse Rate 78 02/12/25 17:15 Respiratory Rate 16 02/12/25 17:15 Blood Pressure 125/66 02/12/25 17:15 Pulse Oximetry 99 02/12/25 17:15 Oxygen Delivery Room Air 02/12/25 17:15 Temperature 98.6 F 02/12/25 17:15 Pulse Rate 78 02/12/25 17:15 Respiratory Rate 16 02/12/25 17:15 Blood Pressure 125/66 02/12/25 17:15 Pulse Oximetry 99 02/12/25 17:15 Oxygen Delivery Room Air 02/12/25 17:15 Critical Care Time Critical Care Time Critical Care Time: No Discharge Plan Discharge Clinical Impression: Medication refill, Abdominal discomfort Patient Disposition: Home Condition: Stable Instructions: Abdominal Pain (ED) Additional Instructions: Please take the amitriptyline as prescribed. Follow-up with your new ingot caster as scheduled. Your blood pressure was elevated above 120/80 today at Urgent Care. This puts you above the threshold for follow up. Please schedule a followup visit with your personal physician as soon as possible, for further evaluation and treatment. Even blood pressure exceeding 120/80 may indicate pre-hypertension. Patient Language: Georgian Prescriptions: New amitriptyline 10 mg tablet 10 mg PO HS Qty: 30 0RF No Action Xifaxan 550 mg tablet 550 mg PO TID 14 Days Qty: 42 1RF ondansetron 4 mg tablet,disintegrating 4 mg PO Q8H PRN (Reason: nausea and vomiting) Qty: 30 0RF omeprazole 20 mg capsule,delayed release(DR/EC) 20 mg PO DAILY Qty: 30 0RF ondansetron 4 mg tablet,disintegrating 4 mg PO Q8H Qty: 14 0RF amitriptyline 10 mg tablet 10 mg PO HS Qty: 30 3RF citalopram 20 mg tablet 20 mg PO DAILY Qty: 90 0RF Follow-up/Referrals: PHYSICIAN,ENROLLMENT COORDINATOR [Primary Care Provider] - Time of Disposition: 17:39
== END 2025-02-12 17:41 | disposition home or self-care (01) ==
PROVIDERS: Emergency Provider Nurse Practitioner
DX: Z76.0 Encounter for issue of repeat prescription (principal); R10.84 Generalized abdominal pain; K50.90 Crohn's disease, unspecified, without complications; Z87.891 Personal history of nicotine dependence; F12.90 Cannabis use, unspecified, uncomplicated; F32.A Depression, unspecified
CPT/HCPCS: 99213; G0463